=== PATIENT | male | born 1940 | race Hispanic/Latino ===

== ENCOUNTER 2018-02-18 09:55 | Inpatient (IN) | payer MEDICARE, OTHER ==
--- NOTE | 2018-02-18 10:15 | ED PDOC ---
Arrival/HPI - General Chief Complaint: Weakness/Neurological Deficit Time Seen by Provider: 02/18/18 09:56 Historian: Patient - History of Present Illness Narrative History of Present Illness (Text): 02/18/18 10:08 A 77 year old male, whose past medical history includes bipolar disorder ( reason patient is in longterm), diabetes type 2, [place], hypertension, and pacemaker, is accompanied by brother and , brought in by EMS for possible stroke. Per brother and , patient lives in a longterm in [place]. Brother went to longterm to diamond picker patient and bring him here to have breakfast with him and . At the time patient was in normal state of behavior and health, and ambulated without difficulty into the diner and was fine while inside. However, at approximately 09:30, as they were leaving the diner, patient was unable to ambulate and could not make any movements. Family called 911 immediately afterwards. Patient has no history of smoking/EtOH abuse. No PMD Time/Duration: Prior to Arrival (symptoms began at approximately 09:30) Associated Symptoms (Text): 02/18/18 11:47 Patient's brother went to [place] to pick the patient up at the longterm. Apparently the patient was fine and was able to ambulate with no difficulty. They went out for breakfast and the patient apparently was fine while at the diner. When he went to leave the patient had difficulty ambulating and was weak in both legs. No upper extremity weakness. No low back pain. He's never experienced this previously. When asked to lift his legs in a straight leg fashion the patient uses both of his hands and grasped behind his thighs to try to help him move his legs. Without his hands he is able to move his legs against gravity but they fall after 2 seconds bilaterally. discussed with the neurologist and he is not a TPA candidate. Past Medical History - Provider Review Nursing Documentation Reviewed: Yes - Cardiac Hx Cardiac Disorders: Yes Hx [place]: Yes Hx Hypertension: Yes Hx Pacemaker: Yes - Pulmonary Hx Respiratory Disorders: No - Neurological Hx Neurological Disorder: Yes Other/Comment: TREMORS - HEENT Hx HEENT Disorder: Yes Hx Sinusitis: Yes - Renal Hx Renal Disorder: No - Endocrine/Metabolic Hx Endocrine Disorders: Yes Hx Diabetes Mellitus Type 2: Yes - Hematological/Oncological Hx Blood Disorders: No - Integumentary Hx Dermatological Disorder: No - Psychiatric Hx Psychophysiologic Disorder: Yes Hx Substance Use: No Family/Social History - Physician Review Nursing Documentation Reviewed: Yes Family/Social History: No Known Family HX Smoking Status: Former Smoker Hx Alcohol Use: No Hx Substance Use: No Allergies/Home Meds Allergies/Adverse Reactions: Allergies Penicillins Allergy (Verified 02/18/18 09:57) SWELLING Home Medications: Home Meds Medication Instructions Recorded Confirmed Clonazepam [Klonopin] 0.5 mg PO DAILY 02/18/18 02/18/18 Review of Systems - Physician Review All systems were reviewed & negative as marked: Yes - Review of Systems Constitutional: absent: Fatigue, Fevers, Night Sweats Respiratory: absent: SOB, Cough Cardiovascular: absent: Chest Pain, Palpitations, Syncope Gastrointestinal: absent: Abdominal Pain, Vomiting Musculoskeletal: absent: Back Pain, Neck Pain Neurological: Gait Changes, Other (diffuclty ambulating and moving extremities) . absent: Headache, Dizziness, Focal Weakness, Seizure Physical Exam Vital Signs Reviewed: Yes Vital Signs Temp Pulse Resp BP Pulse Ox 02/18/18 13:07 98 F 85 19 111/53 L 98 02/18/18 11:03 98.3 F 02/18/18 10:04 98.1 F 78 18 107/58 L 95 Temperature: Afebrile Blood Pressure: Normal Pulse: Regular Respiratory Rate: Normal Appearance: Positive for: Well-Appearing, Non-Toxic, Comfortable Pain Distress: None Mental Status: No: Alert and Oriented X 3 (alert and oriented x 2) Finger Stick Blood Glucose: 138 - Systems Exam Head: Present: Atraumatic, Normocephalic Pupils: Present: PERRL Extroacular Muscles: Present: EOMI Conjunctiva: Present: Normal Ears: Present: NORMAL TM, Normal Canal. No: Erythema, TM Bulging Mouth: Present: Moist Mucous Membranes Pharnyx: No: ERYTHEMA, EXUDATE, TONSILS ENLARGED Respiratory/Chest: Present: Clear to Auscultation, Good Air Exchange. No: Respiratory Distress, Accessory Muscle Use, Wheezes, Decreased Breath Sounds Cardiovascular: Present: Regular Rate and Rhythm, Normal S1, S2. No: Murmurs Abdomen: No: Tenderness, Distention, Peritoneal Signs, Rebound, Guarding Upper Extremity: Present: Normal Inspection. No: Cyanosis, Edema Lower Extremity: Present: Other (bilateral weakness) Neurological: Present: GCS=15 (lower extremity weakness), CN II-XII Intact, Speech Normal, Normal Sensory Function. No: Motor Func Grossly Intact, Normal Cerebellar Funct, Gait Normal (Gait not examined) Skin: Present: Warm, Dry, Normal Color. No: Rashes Psychiatric: Present: Alert, Normal Insight, Normal Concentration Medical Decision Making ED Course and Treatment: 02/18/18 10:12 Impression: 77 year old male with possible stroke. Physical exam shows lower extremity bilateral weakness; patient is alert and oriented x 2. Plan: -- Head CT -- Labs -- Reassess and disposition Progress Notes: 02/18/2018 10:05 Code Stroke was called. 02/18/18 10:[address] Shook, who states patient is not a tPA candidate. 02/18/18 11:[address] Green, who requests patient to be admitted under telemetry, and have Dr. Young on consult. 02/18/18 11:52 EKG is paced rate approximately 90 - Lab Interpretations Lab Results: 02/18/18 10:00 02/18/18 10:00 Lab Results 02/18/18 12:08: Urine Opiates Screen Negative, Urine Methadone Screen Negative, Ur Barbiturates Screen Negative, Ur Phencyclidine Scrn Negative, Ur Amphetamines Screen Negative, U Benzodiazepines Scrn Negative, U Oth Cocaine Metabols Negative, U Cannabinoids Screen Negative 02/18/18 12:07: Ammonia 52 H 02/18/18 10:53: Urine Color Yellow, Urine Appearance Clear, Urine pH 7.0, Ur Specific [place] 1.010, Urine Protein Negative, Urine Glucose (UA) Negative, Urine Ketones Trace H, Urine Blood Negative, Urine Nitrate Negative, Urine Bilirubin Negative, Urine Urobilinogen 1.0 H, Ur Leukocyte Esterase Small H, Urine RBC Negative, Urine WBC 5 - 10, Ur Epithelial Cells 0 - 2, Urine Bacteria Small 02/18/18 10:10: Triglycerides 134, Cholesterol 181, LDL Cholesterol Direct 116, HDL Cholesterol 28 L 02/18/18 10:00: Alcohol, Quantitative < 10 02/18/18 10:00: PT 12.1, INR 1.05, APTT 29.4 02/18/18 10:00: Sodium 145, Potassium 3.9, Chloride 105, Carbon Dioxide 30, Anion Gap 13, BUN 32 H, Creatinine 1.3, Est GFR ( Amer) > 60, Est GFR ( Non-Af Amer) 53, Random Glucose 129 H, Calcium 9.1, Phosphorus 3.5, Magnesium 2.1, Total Bilirubin 0.7, AST 41, ALT 21, Alkaline Phosphatase 56, Lactate Dehydrogenase 561, Total Creatine Kinase 429 H, CK-MB (CK-2) 2.8, CK-MB (CK-2) % Cancelled, Troponin I < 0.01, Total Protein 6.6, Albumin 3.5, Globulin 3.1, Albumin/Globulin Ratio 1.1 02/18/18 10:00: WBC 4.7, RBC 4.55, Hgb 14.3, Hct 41.3 L, MCV 90.8, MCH 31.4, MCHC 34.6, RDW 12.8, Plt Count 96 L, MPV 10.9, Gran % 42.5 L, Lymph % (Auto) 38.7 H, Clinch % (Auto) 15.9 H, Eos % (Auto) 2.5, Baso % (Auto) 0.4, Gran # 2.01, Lymph # (Auto) 1.8, Clinch # (Auto) 0.8 H, Eos # (Auto) 0.1, Baso # (Auto) 0.02 - RAD Interpretation Radiology Orders: 02/18/18 10:12 HEAD W/O (CODE STROKE) [CT] Stat 02/18/18 10:13 HEAD W/O CONTRAST [CT] Stat 02/18/18 10:14 CHEST PORTABLE [RAD] Stat CT scan of the head as read by the radiologist shows no acute findings. X-ray chest one view shows a pacemaker with borderline cardiomegaly and no infiltrate or effusion. Traffic Agent: Radiologist - Medication Orders Current Medication Orders: Acetaminophen (Tylenol 325mg Tab) 650 mg PO Q6H PRN PRN Reason: Fever >100.4 F Acetaminophen (Tylenol 325mg Tab) 650 mg PO Q6H PRN PRN Reason: Pain, Mild (1-3) Sodium Chloride (Sodium Chloride 0.9%) 1,000 mls @ 100 mls/hr IV .Q10H SHERRY Last Admin: 02/18/18 14:45 Dose: 100 mls/hr eMAR Start Stop Document 02/18/18 14:45 RDS (Rec: 02/18/18 14:45 RDS [id number]) Intravenous Solution Start Date 02/18/18 Start Time 14:45 Lorazepam (Ativan) 0.5 mg PO Q6H PRN PRN Reason: Anxiety Ondansetron HCl (Zofran Inj) 4 mg IVP Q6H PRN PRN Reason: Nausea/Vomiting NIHSS Scale ([place]) Time Performed: 10:15 - How Severe is the Stoke Baseline Level of Consciousness: 0=Alert LOC to Questions: 0=Both comments correct LOC to commands: 0=Obeys both correctly Best Gaze: 0=Normal Visual: 0=No visual loss Facial: 0=Normal Motor Arm - Left: 0=No drift Motor Arm - Right: 0=No drift Motor Leg - Left: 2=Falls before 5 sec Motor Leg - Right: 2=Falls before 5 sec Limb Ataxia: 0=Absent Sensory: 0=Normal Best Language: 0=No aphasia Dysarthia: 0=Normal articulation Extinction & Inattention (Neglect): 0=Normal, no object Score: 4 Risk Level: Minor Stroke Risk - Scribe Statement The provider has reviewed the documentation as recorded by the Deidraibe Carson Egan Provider Scribe Attestation: All medical record entries made by the Scribe were at my direction and personally dictated by me. I have reviewed the chart and agree that the record accurately reflects my personal performance of the history, physical exam, medical decision making, and the department course for this patient. I have also personally directed, reviewed, and agree with the discharge instructions and disposition. Disposition/Present on Arrival - Present on Arrival Any Indicators Present on Arrival: No History of DVT/PE: No History of Uncontrolled Diabetes: No Urinary Catheter: No History of Decub. Ulcer: No History Surgical Site Infection Following: None - Disposition Have Diagnosis and Disposition been Completed?: Yes Diagnosis: Weakness Disposition: HOSPITALIZED Disposition Time: 11:53 Patient Plan: Observation, Telemetry Patient Problems: Current Active Problems Problem Status Onset Weakness Acute Condition: SERIOUS
[2018-02-18 10:29] LABS: BASO # 0.02 K/mm3 (0.0-2.0); BASO % 0.4 % (0.0-3.0); EOS # 0.1 (0.0-0.7); EOS % 2.5 % (1.5-5.0); GRAN # 2.01 (1.4-6.5); GRAN % 42.5 % (50.0-68.0); HEMOGLOBIN 14.3 g/dL (14.0-18.0); LYMPH # 1.8 (1.2-3.4); LYMPH % 38.7 % (22.0-35.0); MEAN CELL VOLUME 90.8 fl (80.0-105.0); MEAN CORPUSCULAR HEMOGLOBIN 31.4 pg (25.0-35.0); MEAN CORPUSCULAR HGB CONC 34.6 g/dl (31.0-37.0); MEAN PLATELET VOLUME 10.9 fl (7.0-11.0); MONO # 0.8 (0.1-0.6); MONO % 15.9 % (1.0-6.0); RBC 4.55 10^6/uL (3.5-6.1); RED CELL DISTRIBUTION WIDTH 12.8 % (11.5-14.5); WHITE BLOOD COUNT 4.7 10^3/ul (4.5-11.0)
[2018-02-18 10:31] LABS: INR 1.05; PROTHROMBIN TIME 12.1 SECONDS (9.4-12.5)
--- NOTE | 2018-02-18 10:31 | CT ---
Date of service: 02/18/2018 PROCEDURE: CT HEAD WITHOUT CONTRAST. HISTORY: code stroke COMPARISON: None available. TECHNIQUE: Axial computed tomography images were obtained through the head/brain without intravenous contrast. Radiation dose: Total exam DLP = 926 mGy-cm. This CT exam was performed using one or more of the following dose reduction techniques: Automated exposure control, adjustment of the mA and/or kV according to patient size, and/or use of iterative reconstruction technique. FINDINGS: HEMORRHAGE: No intracranial hemorrhage. BRAIN: No mass effect or edema. No atrophy or chronic microvascular ischemic changes. VENTRICLES: Unremarkable. No hydrocephalus. CALVARIUM: Unremarkable. PARANASAL SINUSES: Unremarkable as visualized. No significant inflammatory changes. MASTOID AIR CELLS: Unremarkable as visualized. No inflammatory changes. OTHER FINDINGS: None. IMPRESSION: No acute intracranial findings
[2018-02-18 10:34] LABS: PARTIAL THROMBOPLASTIN TIME 29.4 Seconds (25.1-36.5)
[2018-02-18 10:38] LABS: ALB/GLOB RATIO 1.1 (1.1-1.8); ALBUMIN 3.5 g/dL (3.0-4.8); ALT/SGPT 21 U/L (7-56); AST/SGOT 41 U/L (17-59); BLOOD UREA NITROGEN 32 mg/dL (7-21); CALCIUM 9.1 mg/dL (8.4-10.5); GFR AFRICAN-AMERICAN > 60; GFR NON-AFRICAN AMERICAN 53
[2018-02-18 10:51] LABS: TROPONIN I < 0.01 ng/mL
[2018-02-18 10:57] LABS: URINE APPEARANCE CLEAR (CLEAR); URINE BILIRUBIN NEGATIVE (NEGATIVE); URINE BLOOD NEGATIVE (NEGATIVE); URINE COLOR YELLOW (YELLOW); URINE GLUCOSE (UA) NEGATIVE (NEGATIVE); URINE LEUKOCYTE ESTERASE SMALL Leu/uL (NEGATIVE); URINE PROTEIN NEGATIVE mg/dL (<30 mg/dL)
[2018-02-18 10:58] LABS: CK-MB 2.8 ng/mL (0.0-3.6)
[2018-02-18 11:10] LABS: URINE BACTERIA SMALL (NEG); URINE EPITHELIAL CELLS 0 - 2 /hpf (0-5)
[2018-02-18 11:50] LABS: URINE RBC NEGATIVE /hpf (0-2)
--- NOTE | 2018-02-18 12:20 | RAD ---
Date of service: 02/18/2018 HISTORY: ams COMPARISON: No prior. FINDINGS: LUNGS: No active pulmonary disease. PLEURA: No significant pleural effusion identified, no pneumothorax apparent. CARDIOVASCULAR: Normal. OSSEOUS STRUCTURES: No significant abnormalities. VISUALIZED UPPER ABDOMEN: Normal. OTHER FINDINGS: Pacemaker IMPRESSION: No active disease.
[2018-02-18 12:40] LABS: BARBITURATES, UR NEGATIVE (NEGATIVE); BENZODIAZEPINES, UR NEGATIVE (NEGATIVE); OPIATES, UR NEGATIVE (NEGATIVE); PHENCYCLIDINE, UR NEGATIVE (NEGATIVE)
[2018-02-18 13:16] LABS: HDL CHOLESTEROL 28 mg/dL (29-60)
[2018-02-18 13:27] LABS: LDL CHOLESTEROL 116 mg/dL (0-129)
[2018-02-18] MEDS ORDERED: Sodium Chloride 0.9% 1,000 ML IV SCH (14:30)
--- NOTE | 2018-02-18 15:02 | CP.PCM.CON ---
History of Present Illness - History of Present Illness History of Present Illness: Neurology Consultation Note: Mr. Frazier is a 77-year-old man who is a [facility] resident, with a past medical history of bipolar disorder, diabetes type 2, [place], hypertension, and pacemaker, is accompanied by brother and , brought in by EMS due to bilateral lower extremity weakness and difficulty with ambulation. He complained of chronic back pain. Past Patient History - Past Social History Smoking Status: Former Smoker - CARDIAC Hx Cardiac Disorders: Yes Hx Heart Attack: Yes Hx Hypertension: Yes Hx Pacemaker: Yes - PULMONARY Hx Respiratory Disorders: No - NEUROLOGICAL Hx Neurological Disorder: Yes Other/Comment: TREMORS - HEENT Hx HEENT Problems: Yes Hx Sinusitis: Yes - RENAL Hx Chronic Kidney Disease: No - ENDOCRINE/METABOLIC Hx Endocrine Disorders: Yes Hx Diabetes Mellitus Type 2: Yes - HEMATOLOGICAL/ONCOLOGICAL Hx Blood Disorders: No - INTEGUMENTARY Hx Dermatological Problems: No - MUSCULOSKELETAL/RHEUMATOLOGICAL Hx Musculoskeletal Disorders: No - GASTROINTESTINAL Hx Gastrointestinal Disorders: No - GENITOURINARY/GYNECOLOGICAL Hx Genitourinary Disorders: No - PSYCHIATRIC Hx Psychophysiologic Disorder: Yes Hx Substance Use: No - SURGICAL HISTORY Hx Surgeries: Yes Other/Comment: PACEMAKER Meds Allergies/Adverse Reactions: Allergies Allergy/AdvReac Type Severity Reaction Status Date / Time Penicillins Allergy SWELLING Verified 02/18/18 09:57 - Medications Medications: Current Medications Acetaminophen (Tylenol 325mg Tab) 650 mg PO Q6H PRN PRN Reason: Fever >100.4 F Acetaminophen (Tylenol 325mg Tab) 650 mg PO Q6H PRN PRN Reason: Pain, Mild (1-3) Sodium Chloride (Sodium Chloride 0.9%) 1,000 mls @ 100 mls/hr IV .Q10H SHERRY Last Admin: 02/18/18 14:45 Dose: 100 mls/hr Lorazepam (Ativan) 0.5 mg PO Q6H PRN PRN Reason: Anxiety Ondansetron HCl (Zofran Inj) 4 mg IVP Q6H PRN PRN Reason: Nausea/Vomiting Physical Exam - Neurological Exam Neurological exam: Abnormal Gait, Alert, CN II-XII Intact, Motor Sensory Deficit , Oriented x3 Additional comments: Reflexes were slightly brisk bilaterally in the lower extremities. Results - Vital Signs Recent Vital Signs: Last Vital Signs Temp 98 F 02/18/18 14:37 Pulse 85 08/05/18 14:37 Resp 19 02/18/18 14:37 BP 112/52 L 02/18/18 14:37 Pulse Ox 98 02/18/18 14:37 - Labs Result Diagrams: 02/18/18 10:00 02/18/18 10:00 Assessment & Plan (1) Weakness Assessment and Plan: The weakness is most notable in the lower extremities and may be due to spine disease. I recommend obtaining an MRI of the lumbar and thoracic spine for further evaluation. Continue conservative management. Thank you. Status: Acute
--- NOTE | 2018-02-18 15:36 | CON ---
Copied To: Javier Young MD Attending MD: Javier Young MD DATE: 02/18/2018 NEUROLOGY CONSULTATION CHIEF COMPLAINT: Generalized lower extremity weakness. HISTORY OF PRESENT ILLNESS: This is a 77-year-old man with past medical history of bipolar disorder, who is residing at a senior living by [facility], type 2 diabetes mellitus, [place], hypertension, pacemaker, who is accompanied by his brother and to the ER for generalized weakness especially to the lower extremities. Apparently, the patient's brother went to [place] to nut picker the patient at the senior living and apparently, the patient was fine and was able to ambulate with no difficulty and when then went out for breakfast, the patient apparently had difficulty in ambulating and had weakness of both legs. No upper extremity weakness, no low back pain. He has never experienced this previously. When asked to lift his legs in a straight leg cushion, he is able to do so. CAT scan of the head showed no acute intracranial abnormality. He has occasional paresthesias underlying diabetic neuropathy. MEDICATIONS: Reviewed by nurse per reconciliation sheet. ALLERGIES: ALLERGIC TO PENICILLIN. REVIEW OF SYSTEMS: Fourteen-point review of systems is negative except as per the HPI. FAMILY HISTORY: Noncontributory. LABORATORY DATA: Sodium is 145, potassium 3.9, chloride 105, carbon dioxide 30. BUN of 32, creatinine 1.3. Random glucose of 129. Ammonia level is 52 which is elevated. PHYSICAL EXAMINATION: VITAL SIGNS: Temperature 98, pulse rate of 85, blood pressure 111/53, respiratory rate of 19, oxygen saturation 98% by room air. GENERAL: The patient is sitting up in bed, in no acute distress. HEENT: Head is atraumatic, normocephalic. PERRLA. Extraocular muscles intact. NECK: Supple. No JVD. No adenopathy noted. LUNGS: Clear to auscultation. No adventitious sounds. HEART: S1, S2. Normal rate and rhythm. No murmurs, rubs, or gallops. ABDOMEN: Soft, nontender, and nondistended. Bowel sounds are present. EXTREMITIES: No clubbing. No cyanosis. Peripheral pulses 2+ felt bilaterally. NEUROLOGIC: The patient is alert and oriented to person, place, month, and year. Speech is fluent without any errors. Recall after 5 minutes is 0/3. Poor attention span and slow thought process. Cranial nerves II through XII intact. No aphasia noted. Motor exam: Mildly deconditioned. Moves all extremities equally. No pronator drifts seen. He is able to lift his legs without any difficulty one by one. No drift seen. Sensory exam: Decreased light touch and pinprick up to the calves bilaterally. Decreased vibration of the toes. DTRs are 2+ throughout both and one at knees and absent at the ankles. Coordination: [id number] intact. No dysmetria noted. 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 ASSESSMENT AND PLAN: This is a 77-year-old man with history of bipolar disorder, history of type 2 diabetes mellitus, history of pacemaker, who presented with bilateral lower extremity weakness and difficulty getting out of the chair while at lunch. Therefore, he came in to the hospital for further evaluation. He is very deconditioned, denies any low back pain. Had low systolic blood pressures in addition to elevated ammonia level of 50. At this time, we will recommend: 1. Repeat CAT scan of the head tomorrow to see if any infarct. 2. CAT scan of the thoracic and lumbosacral spine since he has a pacemaker and orders given to the nurse to assess for any reason for his lower extremity weakness. Overall, he is very deconditioned and will require physical and occupational therapy and likely subacute rehab. 3. We will recommend the GI consult for elevated ammonia level of 52 and recommend aspirin 81 p.o. daily for stroke prevention. Continue current present medical management. Thank you for the consultation. Javier Young MD
[2018-02-18] MEDS ORDERED: Sodium Chloride 0.9% 100 ML IV SCH (15:45)
[2018-02-18] MEDS: Sodium Chloride 0.9% 1,000 ML IV SCH (16:00)
--- NOTE | 2018-02-18 17:11 | CT ---
Date of service: 02/18/2018 PROCEDURE: CT Thoracic Spine without contrast HISTORY: BLE weakness/code stroke COMPARISON: None available. TECHNIQUE: Axial computed tomography images were obtained of the thoracic spine without intravenous contrast. Coronal and sagittal reformatted images were created and reviewed. Radiation dose: Total exam DLP = 757 mGy-cm. This CT exam was performed using one or more of the following dose reduction techniques: Automated exposure control, adjustment of the mA and/or kV according to patient size, and/or use of iterative reconstruction technique. FINDINGS: VERTEBRAE: Unremarkable. No fracture. Normal alignment. DISCS/SPINAL CANAL/NEURAL FORAMINA: Within the limits of the CT technique, no disc herniation seen. No central canal or neural foraminal stenosis.. PARASPINAL SOFT TISSUES: Unremarkable. OTHER FINDINGS: Linear scarring is seen in both lungs posteriorly. IMPRESSION: No acute findings. No evidence of vertebral compression fracture
--- NOTE | 2018-02-18 17:15 | CT ---
Date of service: 02/18/2018 PROCEDURE: CT Lumbar Spine without contrast HISTORY: BLE weakness/code stroke COMPARISON: None available. TECHNIQUE: Axial computed tomography images were obtained of the lumbar spine without the use of intravenous contrast. Coronal and sagittal reformatted images were created and reviewed. Radiation dose: Total exam DLP = 588 mGy-cm. This CT exam was performed using one or more of the following dose reduction techniques: Automated exposure control, adjustment of the mA and/or kV according to patient size, and/or use of iterative reconstruction technique. FINDINGS: VERTEBRAE: Unremarkable. No fracture. Normal alignment. DISCS/SPINAL CANAL/NEURAL FORAMINA: L1-2: Unremarkable. L2-3: Unremarkable. L3-4: Unremarkable. L4-5: There is severe facet arthropathy. Mild disc bulging. Severe stenosis L5-S1: Disc degeneration without stenosis PARASPINAL SOFT TISSUES: Unremarkable. OTHER FINDINGS: None. IMPRESSION: No acute compression fractures. Facet arthropathy and disc bulging with severe stenosis at L4-5
--- NOTE | 2018-02-19 06:48 | CARD ---
APPROVED REPORT Date of service: 02/18/2018 EKG Measurement Heart [id number] <Conclusion> Sinus rhythm with sinus arrhythmia with 1st degree AV block Nonspecific intraventricular block Lateral infarct, age undetermined Inferior infarct, age undetermined Abnormal ECG
--- NOTE | 2018-02-19 09:39 | CT ---
Date of service: 02/19/2018 PROCEDURE: CT HEAD WITHOUT CONTRAST. HISTORY: repeat Head CT/code stroke called 02/18/18 COMPARISON: None available. TECHNIQUE: Axial computed tomography images were obtained through the head/brain without intravenous contrast. Radiation dose: Total exam DLP = 997 mGy-cm. This CT exam was performed using one or more of the following dose reduction techniques: Automated exposure control, adjustment of the mA and/or kV according to patient size, and/or use of iterative reconstruction technique. FINDINGS: HEMORRHAGE: No intracranial hemorrhage. BRAIN: No mass effect or edema. No atrophy or chronic microvascular ischemic changes. VENTRICLES: Unremarkable. No hydrocephalus. CALVARIUM: Unremarkable. PARANASAL SINUSES: Unremarkable as visualized. No significant inflammatory changes. MASTOID AIR CELLS: Unremarkable as visualized. No inflammatory changes. OTHER FINDINGS: The report concurs with the preliminary [facility] report IMPRESSION: No acute findings
[2018-02-19] MEDS: Divalproex 250 mg DR (BID formulation) PO SCH ×2 (11:12→18:00)
--- NOTE | 2018-02-19 12:53 | CP.PCM.PN ---
Subjective - Date & Time of Evaluation Date of Evaluation: 02/19/18 Time of Evaluation: 12:50 - Subjective Subjective: Mr. Frazier was seen and examined at the bedside. He is alert oriented x 1 ( place), but confused to time( 1936) and person (Rosalino). He is agitated and restless claiming of going to a psych unit. Ativan was given. He is able to move all his extremities but the lower is more weaker than the upper. Objective - Vital Signs/Intake and Output Vital Signs (last 24 hours): Temp Pulse Resp BP Pulse Ox 97.2 F L 59 L 20 119/80 96 02/19/18 12:00 02/19/18 12:00 02/19/18 12:00 02/19/18 12:00 02/19/18 06:00 - Medications Medications: Current Medications Acetaminophen (Tylenol 325mg Tab) 650 mg PO Q6H PRN PRN Reason: Fever >100.4 F Acetaminophen (Tylenol 325mg Tab) 650 mg PO Q6H PRN PRN Reason: Pain, Mild (1-3) Aripiprazole (Abilify) 30 mg PO HS [facility] Aspirin (Ecotrin) 81 mg PO DAILY [facility] Last Admin: 02/19/18 11:12 Dose: 81 mg Clonazepam (Klonopin) 1 mg PO DAILY [facility] PRN Reason: Protocol Last Admin: 02/19/18 11:12 Dose: 1 mg Divalproex Sodium (Depakote Dr (*Bid*)) 750 mg PO BID [facility] Last Admin: 02/19/18 11:12 Dose: 750 mg Docusate Sodium (Colace) 100 mg PO TID [facility] Last Admin: 02/19/18 11:11 Dose: 100 mg Sodium Chloride (Sodium Chloride 0.9%) 1,000 mls @ 60 mls/hr IV .[id number] [facility] Last Admin: 02/18/18 16:00 Dose: 60 mls/hr Levothyroxine Sodium (Synthroid) 75 mcg PO ACB [facility] Lisinopril (Zestril) 5 mg PO DAILY [facility] Lorazepam (Ativan) 0.5 mg PO Q6H PRN PRN Reason: Anxiety Last Admin: 02/18/18 23:32 Dose: 0.5 mg Ondansetron HCl (Zofran Inj) 4 mg IVP Q6H PRN PRN Reason: Nausea/Vomiting Pantoprazole Sodium (Protonix Ec Tab) 40 mg PO ACB [facility] Risperidone (Risperdal Tab) 2 mg PO BID [facility] PRN Reason: Protocol Last Admin: 02/19/18 11:12 Dose: 2 mg Sitagliptin Phosphate (Januvia) 50 mg PO DAILY [facility] Last Admin: 02/19/18 11:11 Dose: 50 mg - Labs Labs: PT 12.1 SECONDS (9.4-12.5) 02/18/18 10:00 INR 1.05 02/18/18 10:00 APTT 29.4 Seconds (25.1-36.5) 02/18/18 10:00 - Constitutional Appears: No Acute Distress - Head Exam Head Exam: NORMAL INSPECTION - Neurological Exam Neurological Exam: Awake Neuro motor strength exam: Left Upper Extremity: 4, Right Upper Extremity: 4, Left Lower Extremity: 2/1, Right Lower Extremity: 2/1 Additional comments: restless, agitated, moves his extremities. Assessment and Plan (1) Weakness Assessment & Plan: Case discussed with Dr. Shook, continue all current medical regimen. Recommend MRI of the lumbar and thoracic spine, however, the patient has a pacemaker. Unable to verify if the pacemaker is MRI compatible. Status: Acute
--- NOTE | 2018-02-19 13:02 | CP.PCM.PN ---
Subjective - Date & Time of Evaluation Date of Evaluation: 02/19/18 Time of Evaluation: 11:30 - Subjective Subjective: DATE: 02/19/2018 Neurology Follow up: CHIEF COMPLAINT: Generalized lower extremity weakness. SUBJECTIVE: Repeat CAT scan of the head showed no acute intracranial abnormality. CT Lumbar spine shows Severe facet arthropahy and stenosis at L4-L5. He was agiated this am. Psych is currently evaluating his psych meds. MEDICATIONS: Reviewed by nurse per reconciliation sheet. ALLERGIES: ALLERGIC TO PENICILLIN. REVIEW OF SYSTEMS: Fourteen-point review of systems is negative except as per the HPI. FAMILY HISTORY: Noncontributory. LABORATORY DATA: Reviewed. PHYSICAL EXAMINATION: VITAL SIGNS: Reviewed. GENERAL: The patient is sitting up in bed, in no acute distress. HEENT: Head is atraumatic, normocephalic. PERRLA. Extraocular muscles intact. NECK: Supple. No JVD. No adenopathy noted. LUNGS: Clear to auscultation. No adventitious sounds. HEART: S1, S2. Normal rate and rhythm. No murmurs, rubs, or gallops. ABDOMEN: Soft, nontender, and nondistended. Bowel sounds are present. EXTREMITIES: No clubbing. No cyanosis. Peripheral pulses 2+ felt bilaterally. NEUROLOGIC: The patient is alert and oriented to person, place, month, and year. Speech is fluent without any errors. Recall after 5 minutes is 0/3. Poor attention span and slow thought process. Cranial nerves II through XII intact. No aphasia noted. Motor exam: Mildly deconditioned. Moves all extremities equally. No pronator drifts seen. He is able to lift his legs without any difficulty one by one. No drift seen. Sensory exam: Decreased light touch and pinprick up to the calves bilaterally. Decreased vibration of the toes. DTRs are 2+ throughout both and one at knees and absent at the ankles. Coordination: [id number] intact. No dysmetria noted. 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 ASSESSMENT AND PLAN: This is a 77-year-old man with history of bipolar disorder, history of type 2 diabetes mellitus, history of pacemaker, who presented with bilateral lower extremity weakness and difficulty getting out of the chair while at lunch. Therefore, he came in to the hospital for further evaluation. He is very deconditioned, denies any low back pain. CT Lumbar spine shows Severe facet arthropahy and stenosis at L4-L5. At this time, we will recommend: 1. Overall, he is very deconditioned and will require physical and occupational therapy and likely subacute rehab. aspirin 81 p.o. daily for stroke prevention. Continue current present medical management. Javier Young MD Objective - Vital Signs/Intake and Output Vital Signs (last 24 hours): Temp Pulse Resp BP Pulse Ox 97.2 F L 59 L 20 119/80 96 02/19/18 12:00 02/19/18 12:00 02/19/18 12:00 02/19/18 12:00 02/19/18 06:00 - Medications Medications: Current Medications Acetaminophen (Tylenol 325mg Tab) 650 mg PO Q6H PRN PRN Reason: Fever >100.4 F Acetaminophen (Tylenol 325mg Tab) 650 mg PO Q6H PRN PRN Reason: Pain, Mild (1-3) Aripiprazole (Abilify) 30 mg PO HS [facility] Aspirin (Ecotrin) 81 mg PO DAILY [facility] Last Admin: 02/19/18 11:12 Dose: 81 mg Clonazepam (Klonopin) 1 mg PO DAILY [facility] PRN Reason: Protocol Last Admin: 02/19/18 11:12 Dose: 1 mg Divalproex Sodium (Depakote Dr (*Bid*)) 750 mg PO BID [facility] Last Admin: 02/19/18 11:12 Dose: 750 mg Docusate Sodium (Colace) 100 mg PO TID [facility] Last Admin: 02/19/18 11:11 Dose: 100 mg Sodium Chloride (Sodium Chloride 0.9%) 1,000 mls @ 60 mls/hr IV .[id number] [facility] Last Admin: 02/18/18 16:00 Dose: 60 mls/hr Levothyroxine Sodium (Synthroid) 75 mcg PO ACB [facility] Lisinopril (Zestril) 5 mg PO DAILY [facility] Lorazepam (Ativan) 0.5 mg PO Q6H PRN PRN Reason: Anxiety Last Admin: 02/18/18 23:32 Dose: 0.5 mg Ondansetron HCl (Zofran Inj) 4 mg IVP Q6H PRN PRN Reason: Nausea/Vomiting Pantoprazole Sodium (Protonix Ec Tab) 40 mg PO ACB [facility] Risperidone (Risperdal Tab) 2 mg PO BID [facility] PRN Reason: Protocol Last Admin: 02/19/18 11:12 Dose: 2 mg Sitagliptin Phosphate (Januvia) 50 mg PO DAILY [facility] Last Admin: 02/19/18 11:11 Dose: 50 mg - Labs Labs: PT 12.1 SECONDS (9.4-12.5) 02/18/18 10:00 INR 1.05 02/18/18 10:00 APTT 29.4 Seconds (25.1-36.5) 02/18/18 10:00
--- NOTE | 2018-02-19 14:08 | PN ---
Copied To: Karlie Green MD Attending MD: Karlie Green MD DATE: 02/19/2018 SUBJECTIVE: This 77-year-old male was examined at bedside on the cardiac hinkle and case was reviewed in detail with nursing. The patient remains chronically, but pleasantly confused and was evaluated by Dr. Javier Young from Neurology, who did recommend CT of thoracic and lumbar spine. I did review these reports. He was noted to have degenerative arthritic changes of his spine. There was no evidence of vertebral compression fracture and on lumbar spine CT, a facet arthropathy and disk bulging with severe stenosis was seen at level L4-L5. A repeat head CT was reviewed and shows no evidence of infarct or hemorrhage. At present, the patient is having his psychotropic medications adjusted and he is awaiting consultation by Dr. Jeffrey from Psychiatry. PHYSICAL EXAMINATION: GENERAL: He remains in a normal sinus rhythm on monitoring and evaluation advisor. VITAL SIGNS: His temperature is 97.5, respirations 19, pulse 60 and blood pressure 107/73 with a pulse ox of 96% on room air. HEENT: Head normocephalic, atraumatic. Eyes: No icterus. Ears: Clear. Throat: Noninjected. NECK: Supple. HEART: Regular S1, S2. No pathological rubs, murmurs or gallops. LUNGS: Clear. ABDOMEN: Soft. EXTREMITIES: No edema. SKIN: Without rash. NEUROLOGICAL: Unchanged. Bilateral lower extremity weakness, but he is able to move both legs. Sensory exam is consistent with neuropathy. VASCULAR: Legs warm to touch. PSYCHOLOGICAL: Alert, but confused. NEURO: Deconditioned. SKIN: Without ulcers. LABORATORY DATA: White count 4700, hemoglobin 14.3, hematocrit 41.3, platelets 96,000. Ammonia level was 52. Repeat ammonia level pending. Hemoglobin A1c 5.6, triglycerides 134. Cholesterol 181, HDL 28, LDL 116, random blood sugar 128. IMPRESSION: A 77-year-old male with bilateral lower extremity weakness, evidence of spinal arthritis on spinal CTs and comorbidities of bipolar psychosis, stable atherosclerotic heart disease, chronic hypertension, pacemaker placement, type 2 diabetes mellitus, peptic ulcer disease with gastroesophageal reflux disease, chronic hypothyroidism, degenerative arthritis and abnormal EKG suggestive of old myocardial infarctions. PLAN: As discussed with the patient and nursing will be to await psychiatric evaluation by Dr. Jeffrey from Psychiatry. The patient is ordered to have physical therapy for reconditioning and gait training. He will continue on Abilify 30 mg p.o. at bedtime, Ativan 0.5 mg p.o. every 6 hours p.r.n. anxiety, Colace 100 mg p.o. t.i.d., Ecotrin 81 mg p.o. daily, Januvia 50 mg p.o. daily, Klonopin 1 mg p.o. daily, Protonix 40 mg p.o. daily, Risperdal 2 mg p.o. b.i.d., 0.9 saline at 60 mL/hour, Synthroid 75 mcg p.o. daily, Zestril 5 mg p.o. daily and divalproex sodium 750 mg p.o. every 12. I have ordered a repeat ammonia level. The patient does have normal liver function testings. If the ammonia level remains elevated, a GI consultation will be obtained. I have ordered a 2D echocardiogram to further assess his ejection fraction and evaluate wall motion and valvular heart status and based on results of thyroid profile, blood and urine cultures and workup as outlined, additional diagnostic testing will be entertained. Greater than 35 minutes was spent in the care and management, review of labs, orders, x-rays and discussion of this patient with nursing and case management. All questions were answered. Karlie Green MD MTDReyes
--- NOTE | 2018-02-19 16:35 | HP ---
DATE OF EXAM: 02/18/2018 Copied To: Karlie Green MD Attending MD: Karlie Green MD HISTORY OF PRESENT ILLNESS: This 77-year-old male was examined in the emergency room. His was present at his bedside. He is being admitted for bilateral lower extremity weakness and is a chronic resident of the [facility] in [place], [place]. The patient was being taken to breakfast by his and brother and upon exiting his restaurant yesterday the morning of admission, was unable to ambulate because of bilateral lower extremity weakness. The patient's brother brought him to the local [facility] Emergency Room where he was noted to be markedly deconditioned with bilateral lower extremity weakness. An emergency head CT was reviewed that shows no evidence of hemorrhage or infarct and the patient is being admitted to be evaluated by Neurology. The patient has a chronic allergy to penicillin. He is a longstanding type 2 diabetic, status post myocardial infarction, has chronic hypertension and a permanent pacemaker. The patient also has a history of bipolar psychosis. OUTPATIENT MEDICATIONS: Included Januvia 50 mg p.o. daily, Synthroid 75 mcg p.o. daily, Lasix 40 mg p.o. daily, Ecotrin 81 mg p.o. daily, Protonix 40 mg p.o. daily, multivitamin 1 tablet daily, Zestril 5 mg p.o. daily, Colace 100 mg p.o. t.i.d., divalproex sodium 750 mg p.o. every 12, Risperdal 2 mg p.o. b.i.d., Abilify 30 mg p.o. at bedtime and Klonopin 1 mg p.o. daily. REVIEW OF SYSTEMS: Constitutional review: There were no fever or chills. Head review: No reports of headaches or seizure. Eye review: No change in visual acuity. Ear review: No hearing loss. Throat review: No swallowing difficulty. Neck review: No stiffness. Cardiac review: He is status post myocardial infarction. Has a permanent pacemaker and has chronic hypertension. Pulmonary: No cough. No hemoptysis. GI: Has chronic peptic ulcer disease with GERD. : No dysuria. Skin: No rash. Vascular: No claudication. Psychological: Has poor memory recall and also has history of chronic bipolar psychosis. Neurological: No knowledge of stroke. Endocrinological: No knowledge of hyperlipidemia, but chronic hypothyroidism. SOCIAL HISTORY: The patient is a nondrinker, nonsmoker, non IV drug misuser. He is a detention resident. PHYSICAL EXAMINATION: VITAL SIGNS: His physical exam in the emergency room showed a temperature of 98, respirations 19, pulse 85, blood pressure 111/53 and pulse ox 98% on room air. HEENT: Head: Normocephalic, atraumatic. Eyes: No icterus. Ears: Clear. Throat: Noninjected. NECK: Supple. HEART: Regular S1, S2. No pathological rubs, murmurs or gallops. LUNGS: Clear. ABDOMEN: Soft. EXTREMITIES: No edema. SKIN: Without rash. NEUROLOGICAL: Bilateral lower extremity weakness, also signs of sensory neuropathy in both legs. VASCULAR: Legs warm to touch. PSYCHOLOGICAL: Alert, but confused. SKIN: No ulcers. LABORATORY DATA: Sodium 145, K 3.9, chloride 105, bicarb 30, BUN 32, creatinine 1.3, random blood sugar 129, hemoglobin A1c 5.6, calcium 9.1, phosphorous 3.5, magnesium 2.1, bilirubin 0.7, AST 41, ALT 21, alk phos 56, LDH 561. Troponin less than 0.01. Cholesterol 181, triglycerides 134, LDL 116, HDL 28. White count 4700, hemoglobin 14.3, hematocrit 41.3, platelets 96,000. PT/INR 1.05, PTT 29.4. Urinalysis showed small bacteria. Toxicology was negative for opioids, barbiturates or cocaine. Alcohol level was less than 10. Head CT was reviewed. It showed no evidence of intracranial hemorrhage or infarct. EKG was reviewed. It showed normal sinus rhythm with first-degree AV block and an inferior and lateral wall infarct, age undetermined. Chest x-ray was reviewed. It showed no active pulmonary disease, no pleural effusions, no infiltrates, no evidence of congestive heart failure. IMPRESSION: A 77-year-old male, detention resident with multiple comorbidities including old myocardial infarction, chronic hypertension, hypothyroidism, type 2 diabetes mellitus, bipolar psychosis, hyperlipidemia, degenerative arthritis, now admitted with bilateral lower extremity weakness, chronic pacemaker in place with marked deconditioning and inability to ambulate safely. PLAN: The plan will be to admit this patient to the Cardiac Unit. His outpatient medications will be continued. He will be consulted to be seen by Neurology, Dr. Javier Young and the patient will need a followup head CT in the morning to determine if there is any evidence of acute infarct. Most likely, the patient will require thoracic and lumbar spine CTs given pacemaker status to further assess the reason for bilateral lower extremity weakness. It is my suspicion that the patient has marked deconditioning on the basis of his multiple medical comorbidities and will require outpatient physical therapy once he returns to his detention detention environment. Greater than 75 minutes was spent in the care and management, ordering and reviewing of x-rays, labs and discussion of this patient with him and his at the bedside as well as with Dr. Giuliano Jacobsen, emergency room physician. All questions were answered. Orders were entered. Karlie Green MD BALA
--- NOTE | 2018-02-19 21:17 | CARD ---
APPROVED REPORT Date of service: 02/19/2018 EXAM: Two-dimensional and M-mode echocardiogram with Doppler and color Doppler. INDICATION Abnormal EKG/Arrhythmia 2D DIMENSIONS IVSd1.6 (0.7-1.1cm)LVDd3.4 (3.9-5.9cm) PWd1.4 (0.7-1.1cm)LVDs2.4 (2.5-4.0cm) FS (%) 31.7 %LVEF (%)60.9 (>50%) M-Mode DIMENSIONS Aortic Root2.80 (2.2-3.7cm)Aortic Cusp Exc.1.90 (1.5-2.0cm) Aortic Valve AoV Peak [id number]/Mario Peak GR.4mmHg Mitral Valve E/A ratio0.0 TDI E/Lateral E'0.0E/Medial E'0.0 Tricuspid Valve TR Peak [id number] [id number] Peak Gr.15mmHg [id number] LEFT VENTRICLE The left ventricle is normal size. There is moderate to severe concentric left ventricular hypertrophy. The left ventricular function is normal. The left ventricular ejection fraction is within the normal range. Apical motion consistent with pacemaker activation. Transmitral Doppler flow pattern is abnormal. RIGHT VENTRICLE The right ventricle is normal size. There is normal right ventricular wall thickness. The right ventricular systolic function is normal. ATRIA The left atrium size is normal. The right atrium size is normal. AORTIC VALVE The aortic valve is mildly thickened. No aortic regurgitation is present. There is no aortic valvular stenosis. MITRAL VALVE The mitral valve is moderately thickened. There is no mitral valve regurgitation noted. There is no mitral valve stenosis. TRICUSPID VALVE The tricuspid valve is normal in structure. There is trace tricuspid regurgitation. GREAT VESSELS The aortic root is normal in size. PERICARDIAL EFFUSION There is a trace loculated anterior pericardial effusion. <Conclusion> The left ventricle is normal size. There is moderate to severe concentric left ventricular hypertrophy. The left ventricular function is normal. The left ventricular ejection fraction is within the normal range. Apical motion consistent with pacemaker activation.
[2018-02-19] MEDS: Sodium Chloride 0.9% 1,000 ML IV SCH (23:20)
--- NOTE | 2018-02-19 23:38 | CON ---
Copied To: Atul Jeffrey MD/ PhD Attending MD: Atul Jeffrey MD/ PhD DATE: 02/19/2018 IDENTIFYING INFORMATION: The patient is a 77-year-old male who presented to the emergency room, being admitted for reported bilateral lower extremity weakness. HISTORY OF PRESENT ILLNESS: The patient who is a resident of the [facility] in [place] had been taken to breakfast by his and brother. Upon exiting the restaurant on the morning of his admission he was suddenly unable to ambulate because of lower extremity weakness. He had been brought to our emergency room where he was noted to be markedly deconditioned with bilateral lower extremity weakness. A CT scan of his head showed no evidence of hemorrhage or infarct. The patient has a long-term history of diabetes mellitus type 2, status post myocardial infarction, chronic hypertension and a permanent pacemaker. He reportedly also has a history of bipolar psychosis. A review of my records indicated that I had previously seen this patient in 2003 and given a diagnosis of bipolar disorder - mixed - severe. I am presently trying to trace his actual chart. The patient is maintained psychotropically on Risperdal 2 mg b.i.d., Abilify 30 mg at bedtime and Klonopin 1 mg daily. Medically he is being maintained on Januvia, Synthroid, Lasix, Ecotrin, Zestril, Colace. He is also on Depakote. A CBC and differential shows elevated lymphocyte percent of 38.7 and monocyte percent 35.9. A toxicology screen was negative. Urinalysis showed trace ketones, 1+0 urine and urobilinogen and a small amount of leukocyte esterase. A biochemical profile today was unremarkable. He was seen by Neurology earlier today (Dr. Young) and was noted to have generalized lower extremity weakness. He was continued to have significant deconditioning and require physical and occupational therapy and likely subacute rehab. Upon my assessment of from the patient appeared to be quite disorganized, lacking in focus, somewhat bizarre in affect, he was muttering something about having been hospitalized at the [facility] in the past (if so this as a psychiatric hospital which treats severely psychiatrically appeared individuals). He kept yelling expletives about the type of care he got over there. He seems to be aware that I was a psychiatrist and was called by his doctor, but he could not identify who that might be. He appeared to be disoriented to time and place. The social work notes that his had been interviewed and indicated he had a history of schizophrenia and bipolar disorder (which probably implies a schizoaffective disorder). His did state that he had a behavioral problem with inappropriate gestures and yelling and cursing lately. Notes also indicated he had just been changed to Klonopin on 02/17. The patient will need continued monitoring here in the hospital. For now we will maintain on present psychotropic medication (which includes 2 major tranquilizers), psychotic medications (at sizable doses - Risperdal 2 mg b.i.d. and Abilify 30 mg at bedtime). A valproic acid level is pending. I will be on a vacation till 03/05. We will ask Hospital psychiatrist for coverage. We will try to discuss with you later today or tomorrow prior to my departure. Thank you as always for this consultation. My diagnostic impression is that the patient appears to have a schizoaffective disorder of longstanding duration. Atul Jeffrey MD/ PhD
[2018-02-20] MEDS: Sodium Chloride 0.9% 1,000 ML IV SCH (03:22)
[2018-02-20] MEDS: Levothyroxine 75 MCG TAB PO SCH (07:50)
[2018-02-20] MEDS: Pantoprazole 40 mg EC Tab PO SCH (07:50)
[2018-02-20 07:56] LABS: FREE T4 0.98 ng/dL (0.78-2.19)
[2018-02-20] MEDS: Divalproex 250 mg DR (BID formulation) PO SCH ×2 (09:53→17:39)
--- NOTE | 2018-02-20 16:06 | PN ---
Copied To: Karlie Green MD Attending MD: Karlie Green MD DATE: 02/20/2018 SUBJECTIVE: This 77-year-old male remains hospitalized on the cardiac hinkle. This case was reviewed in detail with nurse, Nimco Morris. The patient had a stormy day yesterday with exacerbation of acute psychosis and was evaluated by Dr. Jeffrey from Psychiatry, who states that the patient has a schizoaffective disorder of a longstanding duration now with acute exacerbation and will need continued monitoring in the hospital while maintaining the patient on two major tranquilizers including Abilify and Risperdal while continuing valproic acid and Ativan p.r.n. anxiety. The patient did have a severe manic episode yesterday where he was screaming, acutely psychotic, and using expletives. Of note, his blood level of Depakote was therapeutic at 61. The patient was administered parenteral Ativan and is being monitored on the cardiac hinkle at present. The patient was admitted with bilateral lower extremity weakness. Head CT x2 was unremarkable, but spinal CT of lumbar spine does reveal significant L4-L5 spinal stenosis. At present, the patient denies any fever, chills, chest pain, or shortness of breath and is in a normal sinus rhythm on manager cardiac cath. PHYSICAL EXAMINATION: VITAL SIGNS: Temperature is 98.4, respirations 18, pulse 58, blood pressure 134/94 with pulse ox of 96% on room air. HEENT: Head: Normocephalic, atraumatic. Eyes: No icterus. Ears: Clear. Throat: Noninjected. NECK: Supple. HEART: Regular, S1 and S2. LUNGS: Clear. ABDOMEN: Soft. EXTREMITIES: No edema. SKIN: Without rash. NEUROLOGIC: Grossly consistent with deconditioning. He is able to move both lower extremities. VASCULAR: Legs warm to touch. PSYCHOLOGIC: Confused, easily agitated. IMPRESSION: A 77-year-old male admitted with bilateral lower extremity weakness in the setting of spinal arthritis, unremarkable CT's of the head. No evidence of acute stroke with comorbidities of [id number] schizoaffective disorder with acute psychosis and comorbidities of type 2 diabetes mellitus, stable atherosclerotic heart disease, peptic ulcer disease with gastroesophageal reflux disease, hypothyroidism, chronic hypertension, degenerative arthritis, hyperglycemia. Normal ammonia level on repeat testing of less than 0.9 with therapeutic Synthroid levels showing free T4 of 0.98 and TSH 2.87 normal. PLAN: At present, order physical therapy for reconditioning and gait training. Blood and urine culture showed no growth at 24 hours. He will continue on Abilify 30 mg p.o. at bedtime, Ativan 0.5 mg p.o. every 6 hours p.r.n. anxiety and Ativan 1 mg IV every 4 hours p.r.n. agitation, Colace 100 mg p.o. t.i.d., Depakote 750 mg p.o. b.i.d., Ecotrin 81 mg p.o. daily. The patient did receive one dose of Geodon 20 mg IM earlier this morning under the direction of Dr. Peguero for acute agitation. He also continues on Januvia 50 mg p.o. daily, Protonix 40 mg p.o. daily, Risperdal 2 mg p.o. b.i.d., 0.9 saline at 60 mL per hours, Synthroid 75 mcg p.o. daily, Zestril 5 mg p.o. daily, and Zofran 4 mg IV every 6 hours p.r.n. nausea and vomiting. He is ordered to have a heart-healthy soft bland diet, fall precautions. SCD antiembolism stockings. Physical therapy for ambulation safety. When cleared by Psychiatry and stabilize psychiatrically, he will return to his halfway environment at the [facility] in [place], [place], where he resides on a chronic basis. Greater than 35 minutes was spent in the care management, review of labs, orders, and outlining of treatment plan with nurse, Nimco Morris today. All questions were answered. Karlie Green MD BALA
[2018-02-20 16:22] LABS: PH,URINE 7.5 (4.7-8.0); URINE BILIRUBIN NEGATIVE (NEGATIVE); URINE BLOOD TRACE-INTACT (NEGATIVE); URINE GLUCOSE (UA) NEGATIVE (NEGATIVE); URINE LEUKOCYTE ESTERASE MODERATE Leu/uL (NEGATIVE); URINE PROTEIN NEGATIVE mg/dL (<30 mg/dL)
[2018-02-20 16:25] LABS: URINE APPEARANCE SLIGHT-CLOUDY (CLEAR); URINE COLOR YELLOW (YELLOW)
[2018-02-20 16:30] LABS: URINE RBC 0 - 2 /hpf (0-2)
[2018-02-20 16:31] LABS: URINE BACTERIA MOD (NEG); URINE WBC 0 - 2 /hpf (0-6)
[2018-02-21 07:19] VITALS: RESP 18
[2018-02-21] MEDS: Levothyroxine 75 MCG TAB PO SCH (08:27)
[2018-02-21] MEDS: Pantoprazole 40 mg EC Tab PO SCH (08:27)
[2018-02-21] MEDS: Divalproex 250 mg DR (BID formulation) PO SCH ×2 (09:12→17:28)
--- NOTE | 2018-02-22 07:44 | CON ---
Copied To: Kaci Richter MD Attending MD: Kaci Richter MD DATE: 02/21/[address] Jeffrey was involved into the care of this patient. Dr. Jeffrey will be on vacation and this music writer is taking over. HISTORY OF PRESENT ILLNESS: Shortly, the patient is a 77-year-old male with history of chronic paranoid schizophrenia, multiple medical problems. The patient was admitted on the medical site for evaluation of lower extremity weakness and difficulty to getting out of chair while at lunch with his family. The patient lives in [facility] in [place]. The patient was visiting his family and during the lunchtime all of a sudden, the patient became weak in lower extremities that is why family brought him for evaluation, rule out stroke. Psych consult was called because of history of mental illness. The patient also presented to be disorganized, also psychotic, also required frequent PRN. The patient also has tendency of pulling IV lines and presented to be bizarre. This music writer evaluated the patient. Reviewed previous notes of Dr. Jeffrey; discussed case with primary care physician, Dr. Green; also the patient has power of employment attorney, Latanya, his . Official paper was requested by medical team and filed into the chart. Latanya's phone number is [phone]. Latanya is power of employment attorney for finances as well as medical decisions and surgeries. The patient was seen and examined. The patient presented to be bizarre, poor personal hygiene. This music writer tried to evaluate the patient while he was eating. The patient needs assistance with eating because the patient is very clumsy and has a lot of food dropping on his chest. The patient presented to be bizarre, smiling inappropriately, first statement was "I love you." The patient also has statements like "I hate Dr. Pennington, I do not know, I hate all Dr. Pennington". The patient also started to scream in the middle of the conversation saying "other hospital feed s...t." Within couple of seconds, the patient is smiling to this music writer inappropriate. There is no meaningful conversation possible because the patient is screaming with no reasons, required to have PRNs, also making inappropriate statements. This music writer contacted [facility] [phone], spoke to the nurse Nakita Polk. Nakita reported that for past 2 weeks, the patient exhibit inappropriate in sexual remarks, was telling that somebody is masturbating him, which is absolutely not true. The patient was offering some sexual favors for others, this behavior is not new for the patient, but the patient was not able to be redirected; before, the patient was able to, but not now. The patient's medications were recently changed. The patient was weaned off Zoloft and Klonopin 1 mg daily was started, first dose was Monday morning. As per staff, the patient has long history of schizophrenia, had multiple admissions in the past, few admission at [facility]. The patient follow up with psychiatrist Dr. Chang, last visit was last Monday, phone number [phone]. This music writer called Dr. Chang, left him a message and awaiting for a call back. Prolonged conversation took place with the patient's power of employment attorney, I discuss treatment options, risks, benefits and alternatives of the medications. This music writer suggested Abilify needs to be weaned off and instead of it, conventional medication such as Thorazine should be initiated. The patient also is on Risperdal; for now, we will continue that medication. NARCISA Beebe was in agreement with treatment plan, willing to sign consent for treatment for the and who come over in order to sign consent. Latanya also asked this music writer to talk to the patient's brother, Panda on [phone]. As per Panda, the patient has long history of mental illness. The patient was admitted on multiple occasions to [facility]; once, he stayed in the hospital for 6 years. The patient also has history of disorganized behavior, but no suicidal attempts in the past. Most recent admission was many years ago. Baseline of the patient would be quiet, also the patient likes singing and enjoy karaoke. At present moment, the patient is not at his baseline of functioning. Vital signs are stable. Temperature 97.6, pulse is 60, blood pressure 123/76, respirations 18, oxygen saturation is 98%. MEDICATIONS: Reviewed. The patient is on Tylenol, Abilify 30 mg at the nighttime, aspirin, Klonopin 1 mg daily, Depakote 750 twice a day, Colace 100 mg three times day, Synthroid, lisinopril, Ativan 1 mg IV push every 4 hours as needed, Protonix, Risperdal 2 mg twice a day, Januvia 50 mg daily, sodium chloride. LABORATORY DATA: Labs reviewed, most recent was from 02/18/2018. Coagulation reviewed. Chemistry reviewed. Urinalysis reviewed. Leukocyte esterase moderate. Microbiology, no growth so far. The patient was seen by physical therapy, subacute rehab recommended. Also, the patient is recommended to have physical therapy 3 to 5 times a week. The patient was able to ambulate. The patient also was seen by speech and swallow, was seen by. Dr. Young, notes reviewed. There is no signs of stroke. MENTAL STATUS EXAMINATION: As this music writer described above. The patient presented to be disorganized, screaming in the middle of the conversation. Mood described as "fine, I love you." Affect was expanded, inappropriate. Thought process seems to be disorganized. Thought content, the patient is disorganized, screaming, yelling, also making inappropriate sexual remarks. Insight and judgment seems to be very limited. Impulses are unpredictable. As per collateral information, as per nurses, the patient needs to have frequent PRNs. The patient tried to climb off the bed as well as trying to pull IV lines of him. Insight and judgment impaired, impulses are unpredictable. IMPRESSION: The patient has a long history of paranoid schizophrenia. The patient also most likely in delirium stage. PLAN: Medication list from [facility] are requested. The patient was on Abilify, which will be weaned off. The patient is on aspirin, Bactroban, Colace, Depakote 750 twice a day will be continued, furosemide 40 mg daily will be continued, Januvia 50 mg daily will be continued. Klonopin will be stopped. Levothyroxine will be continued. Lisinopril will be continued. Multivitamins will be continued. [place] spray, nasal spray will be continued. Pantoprazole will be continued. Risperdal will be continued as of now. Thorazine will be started 25 mg twice a day as well as at the nighttime and p.r.n. Thorazine. This music writer left a message to the patient's psychiatrist, the patient's power of employment attorney Latanya, his signed consent for treatment. We will need to transfer the patient for further evaluation and stabilization to the psychiatric inpatient unit. Dr. Green will be following the patient on the psych floor. Physical therapy will be continued. It took more than 45 minutes of this music writer's time to address all of the needs of this patient. Thank you very much for letting me participate in care of your patient. Should you have any questions, give me a call back. The patient will be transferred to psych unit today. Kaci Richter MD MTDD
[2018-02-22] MEDS: Divalproex 250 mg DR (BID formulation) PO SCH (10:59)
[2018-02-22] MEDS: Levothyroxine 75 MCG TAB PO SCH (11:01)
[2018-02-22] MEDS: Pantoprazole 40 mg EC Tab PO SCH (11:01)
--- NOTE | 2018-02-22 12:03 | PN ---
Copied To: Karlie Green MD Attending MD: Karlie Green MD DATE: 02/21/2018 SUBJECTIVE: This 77-year-old male was examined at bedside. This case was reviewed in detail with his nurse. Kelli Carson, registered nurse and Dr. Kaci Richter, Psychiatry. The patient remains hospitalized with exacerbation of paranoid psychosis. He remains easily agitated, confused, weak and deconditioned, but has been ruled out for acute stroke. The patient was admitted with manic psychosis and inability to ambulate due to bilateral lower extremity weakness. Head CT x2 was negative for acute stroke or hemorrhage and a lumbar spine and thoracic spine CT were consistent with spinal stenosis and arthritis. I did review his 2-D echocardiogram which shows left ventricular hypertrophy, but normal wall motion, and no significant valvular pathology and of note, the patient does have a chronic pacemaker. The patient is now being evaluated by Psychiatry for adjustment of psychotropic medication given his schizoaffective disorder diagnosis and unstable psychiatric status. He does reside in a [facility] chronically, but is unable to ambulate independently at present and is receiving bedside physical therapy. PHYSICAL EXAMINATION: VITAL SIGNS: The patient was noted to have a temperature of 97.8, respirations 18, pulse 59 and blood pressure 146/73 with pulse ox 96% on room air. HEENT: Head normocephalic, atraumatic. Eyes: No icterus. Ears clear. Throat: Noninjected. NECK: Supple. HEART: Regular S1, S2. LUNGS: Clear. ABDOMEN: Soft. EXTREMITIES: No edema. SKIN: No rash. VASCULAR: Legs warm to touch. PSYCHOLOGICAL: Alert, but confused. NEURO: Markedly deconditioned. LABORATORY DATA: White count 4700, hemoglobin 14.3, hematocrit 41.3, platelets 96,000. PT/INR 1.05, PTT 29.4. Blood sugar this morning was 133. Urinalysis showed moderate bacteria. Valproic acid level is therapeutic at 61. IMPRESSION: A 77-year-old male with bilateral lower extremity weakness which renders him non-independent in ambulation with comorbidities of chronic bipolar schizoaffective disorder, now with acute exacerbation with manic episode and confusional psychosis with extreme periods of agitation as well as history of type 2 diabetes mellitus, peptic ulcer disease with gastroesophageal reflux disease, hypothyroidism, degenerative arthritis, chronic hypertension and stable atherosclerotic heart disease with chronic permanent pacemaker placement. PLAN: The plan as discussed with Nursing and Dr. Kaci Richter from Psychiatry will be to continue Abilify 30 mg p.o. at bedtime, Ativan one 1 mg IV every 4 hours p.r.n. agitation, Colace 100 mg p.o. t.i.d. and Depakote 750 mg p.o. b.i.d., Ecotrin 81 mg p.o. daily, Januvia 50 mg p.o. daily, Klonopin 1 mg p.o. daily, Protonix 40 mg p.o. daily, Risperdal 2 mg p.o. b.i.d., 0.9 saline at 60 mL/hour, Synthroid 75 mcg p.o. daily, Zestril 5 mg p.o. daily, Tylenol 650 p.o. every 6 hours p.r.n. pain or temperature greater than 101 and Zofran 4 mg IV every 6 hours p.r.n. nausea and vomiting. The patient is scheduled for bedside physical therapy for ambulation and gait safety training. To date, blood and urine cultures are unremarkable. He remains on a heart-healthy soft bland diet. He remains on fall precautions with antiembolism SCD stockings being applied until the patient is physically more reconditioned. Based on Dr. Kaci Richter's recommendation from Psychiatry, the patient will either be admitted to the Psychiatric Unit or will be readied for discharge to the [facility] where he resides. Greater than 35 minutes was spent in the care management, review of labs, orders, adjustment of medication and outlining of patient care with nurse, Kelli Carson today. All questions were answered. Karlie Grene MD
--- NOTE | 2018-02-22 14:51 | CON ---
Copied To: Ankur Chew MD Attending MD: Ankur Chew MD DATE: 02/22/2018 The patient is a 77-year-old male with a history of chronic paranoid schizophrenia who is being seen by Psychiatry on the medical side due to paranoid decompensation of psychotic symptoms. Review of Dr. Richter's consultation as well as Dr. Jeffrey's consultation indicates that patient has been bizarre, disorganized, paranoid and unpredictable. Ankur Chew MD
[2018-02-22 15:42] VITALS: BP 94/56; PULSE 51; TEMP 98.7; O2SAT 93
--- NOTE | 2018-02-23 06:04 | CON ---
Copied To: Ankur Chew MD Attending MD: Ankur Chew MD DATE: 02/22/2018 HISTORY OF PRESENT ILLNESS: The patient is a 77-year-old male with a history of chronic paranoid schizophrenia, who has been seen by Psychiatry on the medical floor due to recent decompensation of psychotic symptoms. The patient has been exhibiting paranoia, agitated and restless behavior, generally unpredictable and is demonstrating his symptoms of cooperation and relative calmness during baseline. It was determined that the patient will be transferred to the Psychiatric Unit for further stabilization while he is medically cleared. Dr. Richter had prolonged conversation with the patient's power of deputy commonwealth's attorney who also agreed with her recommendation with a plan that Abilify would be weaned off and conventional medication such as Thorazine would be initiated. I met with the patient at bedside and he is though not as bizarre as documented in prior notes. He smiles frequently during the course of our conversation and it is a little odd and responses are apparently relevant to questioning. He is aware that he is in the hospital; however does not know the current year, he says 2011. He does know that he is in [facility] and that it is February. He denies any instance of perceptual disturbance or paranoia and vehemently denies that he is depressed. The patient also denies that he has any new discomfort or pain since yesterday. He believes his medications are Prolixin and Cogentin as well as Abilify. He has been on review of staff nurse as well as discussion, continues to be unpredictable, restless and tries to get out of bed in the middle of night and has episodes of screaming and still demonstrates very poor insight and judgement in his current diagnoses and recommendations. Laboratory data and vitals were reviewed that was provided. MEDICATIONS: Psychiatric medications include Abilify 30 mg at bedtime, Klonopin 1 mg daily, Depakote 750 mg p.o. b.i.d., Ativan 0.5 mg p.o. every 6 p.r.n. as well as 1 mg IV every 4 p.r.n., Risperdal 2 mg p.o. b.i.d. IMPRESSION: Chronic paranoid schizophrenia, recent decompensation, rule out contributing factors of delirium. RECOMMENDATIONS: The patient meets criteria for Psychiatric admission at this time. The patient needs transfer to the Psychiatric Unit once medically cleared provided POA signed consent.. At that time, Abilify will be discontinued per Dr. Richter, Risperdal would be continued and we will start low dose Thorazine or Prolixin. Ankur Chew MD
== END 2018-02-22 16:05 | DRG 552 ==
LOC: ED 09:55 → ERH 12:24 → 2RNO 14:54 → OBSVTOIN 02-19 10:49 → 5RNO 02-20 16:47
PROVIDERS: ADMIT Internal Medicine; ATTEND Internal Medicine
DX: M48.061 Spinal stenosis, lumbar region without neurogenic claudication (principal); F20.0 Paranoid schizophrenia; M46.96 Unspecified inflammatory spondylopathy, lumbar region; E03.9 Hypothyroidism, unspecified; E11.40 Type 2 diabetes mellitus with diabetic neuropathy, unspecified; E78.5 Hyperlipidemia, unspecified; I11.9 Hypertensive heart disease without heart failure; I25.10 Atherosclerotic heart disease of native coronary artery without angina pectoris; K21.9 Gastro-esophageal reflux disease without esophagitis; K27.9 Peptic ulcer, site unspecified, unspecified as acute or chronic, without hemorrhage or perforation; G89.29 Other chronic pain; I25.2 Old myocardial infarction; Z79.899 Other long term (current) drug therapy; Z87.11 Personal history of peptic ulcer disease; Z87.891 Personal history of nicotine dependence; Z88.0 Allergy status to penicillin; Z95.0 Presence of cardiac pacemaker

== ENCOUNTER 2018-02-22 16:05 | Inpatient (IN) | payer MEDICARE, OTHER ==
[2018-02-22] MEDS: Divalproex 250 mg ER (ONCE DAILY formulation) PO SCH (19:20)
--- NOTE | 2018-02-22 20:24 | PCM.BM ---
<Belén Black - Last Filed: 02/22/18 20:21> Treatment Plan Problems - Problems identified on initial assessmt ineffective coping Date Initiated: 02/22/18 Time Initiated: 20:21 Assessment reference: NA Status: Active activity intolerance Date Initiated: 02/22/18 Time Initiated: 20:22 Assessment reference: NA Status: Active self care deficit Date Initiated: 02/22/18 Time Initiated: 20:23 Assessment reference: NA Status: Active social isolation Date Initiated: 02/22/18 Time Initiated: 20:24 Assessment reference: NA Status: Active Treatment assets and liabiliti Patient Assests: cooperative, good support system Patient Liabilities: dietary restrictions, imparied memory - Milieu Protocol Maintain good personal hygiene: every shift Encourage regular showers, every shift Remind patient to perform daily oral care, every shift Assist patient to perform ADL's Conduct patient checks and document Observation sheet: 1:1 Maintain personal safety: every shift Educate patient to report safety concerns to staff, every shift Monitor environment for contraband/sharps Medication safety: Monitor for expected outcome, potential side effects: every shift, Assess barriers to learning: every shift, Assess readiness for medication education: every shift Discharge/Continuing Care - Education Needs Education Needs: Patient Medication, Patient Diagnosis/Disease Process, Patient Coping Skills, Patient Personal Hygiene/Grooming - Discharge Discharge Criteria: Tolerates medication w/o severe side effects, Free of agitation, Ability to care for self <Kaci Richter - Last Filed: 02/23/18 14:34> - Diagnosis (1) Schizoaffective disorder Status: Acute Interventions: 02/23/18 14:34 Psychoeducation/psychotherapy Psychopharmacology/adjustment of medications as needed/ monitoring possible side effects Evaluate pt on daily basis Compliance with medications and follow up appointments Long acting medication if pt is noncompliant with pill form Suicide and homicide risk assessment and prevention, coping strategies, safety plan Relapse prevention Reduction of symptoms Improve functional status Family involvement
[2018-02-23] MEDS: Pantoprazole 40 mg EC Tab PO SCH (06:16)
[2018-02-23] MEDS: Levothyroxine 75 MCG TAB PO SCH (06:16)
[2018-02-23] MEDS: Divalproex 250 mg ER (ONCE DAILY formulation) PO SCH ×2 (09:00→16:48)
[2018-02-23] MEDS: Multivitamin With Minerals Tab PO SCH (09:26)
--- NOTE | 2018-02-23 14:33 | PCM.PSYCH ---
Initial Psychiatric Evaluation - Initial Psychiatric Evaluation Type of Admission: Voluntary Legal Status: DPOA (pt's NARCISA signed consent) Chief Complaint (in patient's own words): "f..you, f..ck you all" Patient's Reaction to Hospitalization: pt was transferred from the medical floor for evaluation of disinhibited behavior, delusions, not be able to be redirected. History of Present Illness and Precipitating Events: shortly pt is 78yo Male with long and debilitated h/o bipolar disorder with psychosis, vs schizoaffective disorder bipolar type, multiple psychiatric admissions, including state hospitalizations, see consultation for more detailed information, pt currently lives in [facility], initially was admitted on the medical site for evaluation of fall and AMS, psych consult was called for evaluation of AMS, agitation, aggression, pt needed to have multiple PRNs on the medical floor, discussed with pt's POA Latanya Gomeztungmaryan, brother as well, today discussed with pt's psychiatrist , pt requires further evaluation and stabilization, meds adjustment. pt was seen in his room, pt presented to be disorganized, was randomly answering for the questions, pt would scream "f...ck you, f...ck you all", then would smile then scream "other hospitals feed you sh...t, leave you in sh...t, cover you with sh...t", but reported he likes food in [place], pt also was fixated on the lip chopstick, was keep asking and asking for it, staff was advised to check supply and provide it to the pt. pt presented with poor personal hygiene, poor ADLs, wears diapers, as per report from the 1:1 sitter, pt ate. pt presented to be disorganized chronic delusions, disorganized thoughts and behavior. pt tolerates med well so far, no side effects observed or reported, AIMS 0, no EPS. discussed with pt's family: no h/o abuse, no h/o drug use, pt has multiple psychiatric admissions, see consult notes for more detailed info. as per family baseline pt will be quiet, pt loves singing, enjoys karaoke. as per RN at the assisted living facility, pt was disorganized, was delusional that he was touched inappropriately (it is not true), was offering sexual favors to others were not able to be redirected. discussed with pt's psychiatrist today 02/23/18, pt was on abilify , depakote, risperdal, one dose of klonopin was given and pt had AMS and almost fell. no benzos recommended, discussed option of thorazine/prolixin. Lab Results 02/23/18 07:43: POC Glucose (mg/dL) 100 02/22/18 21:12: POC Glucose (mg/dL) 119 H Vital Signs Temp Pulse Pulse Resp BP 02/23/18 09:00 77 139/84 02/23/18 06:56 97.6 F 77 20 139/84 02/22/18 17:53 75 18 Current Medications: Active Medications Generic Name Dose Route Start Last Admin Trade Name Freq PRN Reason Stop Dose Admin Acetaminophen 650 mg 02/22/18 17:49 Tylenol 325mg Tab PO Q6H PRN Pain, moderate (4-7) Aspirin 81 mg 02/23/18 08:00 02/23/18 09:28 Ecotrin PO 81 mg DAILY SHERRY Administration Chlorpromazine 25 mg 02/23/18 08:00 02/23/18 09:00 Thorazine PO 25 mg BID SHERRY Administration Protocol Chlorpromazine 25 mg 02/22/18 22:00 02/22/18 21:21 Thorazine PO 25 mg HS SHERRY Administration Protocol Chlorpromazine 50 mg 02/22/18 17:46 02/23/18 05:10 Thorazine IM 50 mg TID PRN Administration Agitation Protocol Divalproex Sodium 750 mg 02/22/18 17:00 02/23/18 09:00 Depakote Er(Once Daily) PO 750 mg BID SHERRY Administration Protocol Docusate Sodium 100 mg 02/22/18 18:00 02/23/18 09:26 Colace PO 100 mg TID SHERRY Administration Furosemide 40 mg 02/23/18 08:00 02/23/18 09:00 Lasix PO 40 mg DAILY SHERRY Administration Levothyroxine Sodium 75 mcg 02/23/18 06:00 02/23/18 06:16 Synthroid PO 75 mcg 0600 SHERRY Administration Lisinopril 5 mg 02/23/18 08:00 02/23/18 09:00 Zestril PO 5 mg DAILY SHERRY Administration Multivitamins/Minerals 1 tab 02/23/18 08:00 02/23/18 09:26 Therapeutic-M Tab PO 1 tab 0800 SHERRY Administration Pantoprazole Sodium 40 mg 02/23/18 06:00 02/23/18 06:16 Protonix Ec Tab PO 40 mg 0600 SHERRY Administration Risperidone 2 mg 02/22/18 22:00 02/23/18 09:00 Risperdal Tab PO 2 mg AMHS SHERRY Administration Protocol Sitagliptin Phosphate 50 mg 02/23/18 08:00 02/23/18 09:28 Januvia PO 50 mg DAILY SHERRY Administration Zaleplon 5 mg 02/22/18 17:47 Sonata PO HS PRN Insomnia Past Psychiatric History - Past Psychiatric History Previous Treatment History: Inpatient Prior Professional Help: see HPI Prior Psychiatric Treatment: see HPI At what hospital: see HPI Duration: see HPI Nature of Treatment: see HPI Explanation of prior treatment: see HPI History of Abuse: see HPI History of ETOH/Drug Use: see HPI History of Family Illness: see HPI Pertinent Medical Hx (Current Medical&Sleep Prob, Allergies): Allergies Allergy/AdvReac Type Severity Reaction Status Date / Time Penicillins Allergy SWELLING Verified 02/22/18 16:48 valsartan [From Diovan] Allergy URTICARIA Verified 02/23/18 06:05 Dye used in Cat Scans Allergy URTICARIA Uncoded 02/23/18 06:05 Sulfa Drugs Allergy URTICARIA Uncoded 02/23/18 06:05 Aripiprazole [Abilify] 30 mg PO HS 02/18/18 Aspirin [Aspirin Chewable] 81 mg PO DAILY 02/18/18 Clonazepam [Klonopin] 1 mg PO DAILY 02/18/18 Divalproex Sodium [Divalproex Sodium ER] 750 mg PO Q12 02/18/18 Docusate [Colace] 100 mg PO TID 02/18/18 Furosemide [Lasix] 40 mg PO DAILY 02/18/18 Levothyroxine Sodium [Levoxyl] 75 mcg PO ACB 02/18/18 Lisinopril [Zestril] 5 mg PO DAILY 02/18/18 Multivitamin with Minerals [Daily Vitamin Formula-Minerals] 1 tab PO DAILY 02/18 Pantoprazole Sodium [Protonix] 40 mg PO ACB 02/18/18 Risperidone [Risperdal] 2 mg PO BID 02/18/18 SITagliptin [Januvia] 50 mg PO DAILY 02/18/18 Review of Systems - Review of Systems Systems not reviewed;Unavailable: Acuity of Condition - EENT Eyes: As Per HPI Ears: As Per HPI Nose/Mouth/Throat: As Per HPI - Cardiovascular Cardiovascular: As Per HPI - Respiratory Respiratory: As Per HPI - Gastrointestinal Gastrointestinal: As Per HPI - Genitourinary Genitourinary: As Per HPI - Reproductive: Male Reproductive:Male: As Per HPI - Musculoskeletal Musculoskeletal: As Par HPI - Integumentary Integumentary: As Per HPI - Neurological Neurological: As Per HPI - Psychiatric Psychiatric: As Per HPI - Endocrine Endocrine: As Per HPI - Hematologic/Lymphatic Hematologic: As Per HPI Mental Status Examination - Personal Presentation Personal Presentation: Looks older than stated age - Affect Affect: Constricted, Flat - Motor Activity Motor Activity: Psychomotor Agitation - Reliability in Providing Information Reliability in Providing Information: Poor, due to alteration in thoughts, Poor , due to altered mood, Poor, due to cognitve impairment - Speech Speech: Disorganized, Irrelevant, Tangential - Formal Thought Process Formal Thought Process: Delusions, Paranoia, Loosening of associations - Hallucinations/Delusions Delusions: Persecution - Obsessions/Compulsions Obsessions: None Compulsions: None - Cognitive Functions Orientation: Person Sensorium: Alert Attention/Concentration: Easily distracted Abstract Thinking: [place] Estimate of Intelligence: Below average Judgement: Intact, as evidence by: Insight regarding need for hospitalization - Risk Risk: Diminished functioning - Strength & Assets Inventory Strength & Assets Inventory: Family support, Life experience, Cooperative - Limitations Limitations: Other (severe mental illness) DSM 5 DX - DSM 5 DSM 5 Diagnosis: r/o schizoaffective disorder bipolar type r/o bipolar disorder with psychosis r/o schizophrenia - Recommended/Plan of Treatment Treatment Recommendations and Plan of Treatment: milieu/structure/supportive therapy family involved medical consult appreciated Aripiprazole [Abilify] d/c thorazine 25mg po bid and hs for psychosis will consider prolixin Aspirin [Aspirin Chewable] 81 mg PO DAILY will be continued Clonazepam [Klonopin] 1 mg PO DAILY d/c Divalproex Sodium [Divalproex Sodium ER] 750 mg PO Q12 will be continued will monitor depakote level Docusate [Colace] 100 mg PO TID continued Furosemide [Lasix] 40 mg PO continued Levothyroxine Sodium [Levoxyl] 75 mcg PO ACB continued Lisinopril [Zestril] 5 mg PO DAILYcontinued Multivitamin with Minerals [Daily Vitamin Formula-Minerals] continued Pantoprazole Sodium [Protonix] 40 mg PO ACB continued Risperidone [Risperdal] 2 mg PO BID continued SITagliptin [Januvia] 50 mg PO DAILY continued SW evaluation collaterals appreciated from family, Ppsychiatrist, RN from the assisted living Will monitor closely Pt was educated about risk/benefits and alternatives of medications, coping strategies (safety plan, suicide prevention), relapse prevention, importance of follow up with psychiatrist and therapist, stay away from drugs/alcohol/smoking for now pt will continue on 1:1 observation Projected ELOS: 7days Prognosis: guarded Discharge Plan and Discharge Criteria: Pt will be not depressed or manic, will be more hopeful, will be not psychotic or anxious, will be not having thoughts of harming self or others, will be tolerating medications well, will not have major side effects, will be able to function, will not pose threat to self or others. - Smoking Cessation Smoking Cessation Initiated: No Reason for not providing: pt does not smoke
[2018-02-24] MEDS: Levothyroxine 75 MCG TAB PO SCH (06:44)
[2018-02-24] MEDS: Pantoprazole 40 mg EC Tab PO SCH (06:44)
--- NOTE | 2018-02-24 09:44 | PCM.PYCHPN ---
Psychiatric Progress Note - Psychiatric Progress Note Patient seen today, length of contact: 25 Problems Identified/Issues Discussed: Patient is 78 yo Male with long and debilitative history of bipolar disorder with psychosis, vs schizoaffective disorder bipolar type, multiple psychiatric admissions, including state hospitalizations, who was transferred from the medical floor for treatment of disorganization and agitation. Admission was signed by patient's POA, his Latanya Frazier. Patient continues to be unpredictable on the psychiatric unit. Thought process is disorganized with some FOI. Multiple staff have noted his lability and paranoia. Patient has periods of intermittent yelling, swearing and self- escalation. His hygiene is poor and patient has very limited understanding of his current situation. He is pleasant with me this morning however quite confused. His responses are generally not consistent or relevant to questioning though he can be redirected to be more focused sometimes. A productive interview is still difficult to maintain due to his disorganization. Patient denies any current discomfort or pain and he doesn't appear to be in any distress. Insight and judgement remain poor. Diagnostic Results: r/o schizoaffective disorder bipolar type r/o bipolar disorder with psychosis r/o schizophrenia Mental Status Examination - Cognitive Function Orientation: Person Memory: Impaired Attention: Poor Concentration: Poor Association: Loose Fund of Knowledge: Poor - Mood Mood: Other (labile) - Affect Affect: Constricted, Flat, Other (labile) - Speech Speech: Loud - Formal Thought Process Formal Thought Process: Delusions, Paranoia, Loosening of associations - Suicidal Ideation Suicidal Ideation: No - Homicidal Ideation Homicidal Ideation: No Goal/Treatment Plan - Goal/Treatment Plan Progress Toward Problem(s) and Goals/Treatment Plan: * group, milieu and supportive tx as tolerated * c/w 1:1, patient remains unpredictable * thorazine 25/25/50 and risperdal 2 mg po bid for disorganization, agitation and paranoia * depakote ER 750 mg po bid for impulse and mood control 02/19/18 12:40 Valproic Acid 61 * Sontata 5 mg po HS prn: insomnia * Vitals reviewed and noted below: Selected Entries 02/24/18 06:34 Temperature 98.6 F Pulse Rate 73 Respiratory 20 Rate Blood Pressure 147/88 * No new weekend labs thus far
[2018-02-24] MEDS: Divalproex 250 mg ER (ONCE DAILY formulation) PO SCH ×2 (10:20→17:19)
[2018-02-24] MEDS: Multivitamin With Minerals Tab PO SCH (10:22)
[2018-02-25] MEDS: Levothyroxine 75 MCG TAB PO SCH (06:54)
[2018-02-25] MEDS: Pantoprazole 40 mg EC Tab PO SCH (06:54)
[2018-02-25] MEDS: Divalproex 250 mg ER (ONCE DAILY formulation) PO SCH ×2 (08:45→17:56)
[2018-02-25] MEDS: Multivitamin With Minerals Tab PO SCH (08:47)
--- NOTE | 2018-02-25 08:49 | PCM.PYCHPN ---
Psychiatric Progress Note - Psychiatric Progress Note Patient seen today, length of contact: 25 Problems Identified/Issues Discussed: Patient is 78 yo Male with long and debilitative history of bipolar disorder with psychosis, vs schizoaffective disorder bipolar type, multiple psychiatric admissions, including state hospitalizations, who was transferred from the medical floor for treatment of disorganization and agitation. Admission was signed by patient's POA, his Latanya Frazier. Patient continues to be unpredictable on the psychiatric unit. Thought process is disorganized and scattered. Multiple staff have noted his lability and paranoia. Patient still has intermittent periods of yelling, swearing and self- escalation. He can be religiously preoccupied and repeats quotes the bible numerous times when he is very anxious or upset. Patient has very limited understanding of his current situation. His responses are generally not consistent or relevant to questioning though he can be redirected to be more focused sometimes. A productive interview is still difficult to maintain due to his disorganization. Patient did have a noneventful visit with his family yesterday and per staff notes, appeared to enjoy their company. Patient denies any current discomfort or pain and he doesn't appear to be in any distress. Insight and judgement remain poor. Slept overnight per staff report. Diagnostic Results: r/o schizoaffective disorder bipolar type r/o bipolar disorder with psychosis r/o schizophrenia Mental Status Examination - Cognitive Function Orientation: Person Memory: Impaired Attention: Poor Concentration: Poor Association: Loose Fund of Knowledge: Poor - Mood Mood: Other (labile) - Affect Affect: Constricted, Flat, Other (labile) - Speech Speech: Loud - Formal Thought Process Formal Thought Process: Delusions, Paranoia, Loosening of associations - Suicidal Ideation Suicidal Ideation: No - Homicidal Ideation Homicidal Ideation: No Goal/Treatment Plan - Goal/Treatment Plan Progress Toward Problem(s) and Goals/Treatment Plan: * group, milieu and supportive tx as tolerated * c/w 1:1, patient remains unpredictable * thorazine 25/25/50 and risperdal increased to 1 mg AM, 2 mg PM and 2 mg HS for disorganization, agitation and paranoia * Add very small dose of ativan 0.25 mg AMHS for patient's anxiety, mood control and for EPS prophylaxis. Conservative with benzo because of related increased confusion and disinhibition in elderly associated with high doses of these medications. * depakote ER 750 mg po bid for impulse and mood control 02/19/18 12:40 Valproic Acid 61 * Sonata 5 mg po HS prn: insomnia * Vitals reviewed and noted below: Selected Entries 02/25/18 07:17 Temperature 97.2 F L Pulse Rate 77 Respiratory 20 Rate Blood Pressure 117/81 * No new weekend labs
--- NOTE | 2018-02-25 12:55 | PN ---
Copied To: Karlie Green MD Attending MD: Karlie Green MD DATE: 02/24/2018 SUBJECTIVE: This 77-year-old male was at evaluated at his bedside in the [facility]. I examined him in room 508 bed 1. He had a 1:1 sitter at his bedside. The patient is more alert today, less agitated. He denied any fever, chills, chest pain or shortness of breath. PHYSICAL EXAMINATION: VITAL SIGNS: Temperature 98.6, respirations 20, pulse 73 and blood pressure 147/88. HEENT: Head: Normocephalic, atraumatic. Eyes: No icterus. Ears: Clear. Throat: Noninjected. NECK: Supple. HEART: S1, S2. LUNGS: Clear. ABDOMEN: Soft. EXTREMITIES: No edema. SKIN: Without rash. NEUROLOGICAL: Intact. PSYCHOLOGICAL: Alert. VASCULAR: Legs warm to touch. The patient is eating his lunch, in good spirits. with good appetite. IMPRESSION: Chronic bipolar psychosis, chronic paranoid schizophrenia with recent exacerbation and uncontrolled agitation, now improving, after the discontinuation of Abilify and implementation of Thorazine with comorbidities of atherosclerotic heart disease, chronic hypertension, type 2 diabetes mellitus, peptic ulcer disease with gastroesophageal reflux disease, insomnia, hypothyroidism and degenerative arthritis. I did discuss with the Nursing staff to schedule this patient for physical therapy as able and to get him out of bed to chair. He does continue with 1:1 sitter and he will continue on Zestril, Thorazine, multivitamin, Synthroid, Sonata, Risperdal, Protonix, Lasix, Januvia, Ecotrin, Depakote, Colace and Ativan. Once the patient is medically stable, he will be returning to his intermediate at the [facility] rehab in [place], [place]. Karlie Green MD MTDReyes
--- NOTE | 2018-02-25 13:24 | PN ---
Copied To: Karlie Green MD Attending MD: Karlie Green MD DATE: 02/25/2018 SUBJECTIVE: This 77-year-old male remains hospitalized on the psychiatric hinkle for angry, impulsive behavior which is labile in occurrence and this case was reviewed with nurse, Victorino Franklin, registered nurse. The patient requires a one-to-one sitter, but denies any fever, chills, chest pain, or shortness of breath. PHYSICAL EXAMINATION: VITAL SIGNS: Temperature is 98.6, respirations 20, pulse 73, and blood pressure 147/88. HEENT: Head: Normocephalic, atraumatic. Eyes: No icterus. Ears: Clear. Throat: Noninjected. NECK: Supple. HEART: S1 and S2. LUNGS: Clear. ABDOMEN: Soft. EXTREMITIES: No edema. SKIN: Without rash. NEUROLOGIC: Deconditioned. VASCULAR: Legs warm to touch. PSYCHOLOGIC: Alert and confused. IMPRESSION: A 77-year-old male with chronic bipolar psychosis, now with acute agitation, paranoia, and schizophrenic exacerbation with comorbidities of anxiety neurosis, type 2 diabetes mellitus, hypertension, peptic ulcer disease with gastroesophageal reflux disease, insomnia, hypothyroidism, degenerative arthritis, hypertension, and deconditioning. PLAN: Continue Ativan, Colace, Depakote, Ecotrin, Januvia, Lasix, Protonix, Risperdal, Sonata, Synthroid, multivitamin, Thorazine Tylenol, and Zestril. He continues on a heart-healthy diet. I did discuss with Nursing to schedule him for physical therapy for reconditioning and gait training, and the plan will be to return into the [facility] in [place], [place] when medically stable. Karlie Green MD MTDReyes
--- NOTE | 2018-02-25 13:39 | PN ---
Copied To: Karlie Green MD Attending MD: Karlie Green MD DATE: 02/23/2018 SUBJECTIVE: This 77-year-old male was examined at his bedside in the psychiatric hinkle, room 508. He has a one-to-one sitter present at his bedside and the patient is notably less agitated and more sedated on adjusted psychotropic medication. The patient was initially admitted to the medical hinkle under my direction after concerns of a stroke were raised and disproved, but the patient remained extremely agitated and does carry a diagnosis of longstanding history of paranoid schizophrenia and bipolar psychosis. The patient is a [facility], but in not suitable condition for return at this point and family and Psychiatry were in agreement for him to be transferred to inpatient psychiatric hinkle for adjustment of psychotropic medication. At present, Abilify has been discontinued and Thorazine is being implemented. PHYSICAL EXAMINATION: GENERAL: The patient remains alert, but confused. VITAL SIGNS: His temperature was 97.7, respirations 20, pulse 77 and blood pressure 139/84. HEENT: Head, normocephalic, atraumatic. Eyes: No icterus. NECK: Supple. HEART: S1, S2. LUNGS: Clear. ABDOMEN: Soft. EXTREMITIES: No edema. SKIN: Without rash. NEUROLOGICAL: Deconditioned. VASCULAR: Legs warm to touch. LABORATORY DATA: Random blood sugar 100. IMPRESSION: A 77-year-old male with chronic bipolar psychosis, acute, agitated, paranoid, schizophrenia, type 2 diabetes mellitus, hypertension, peptic ulcer disease with gastroesophageal reflux disease, insomnia, hypothyroidism and degenerative arthritis. PLAN: To continue Ativan, Colace, Depakote, Ecotrin, Januvia, Lasix, Protonix, Risperdal, Sonata, Synthroid, multivitamin, Thorazine, Tylenol and Zestril. He is scheduled to have a heart-healthy diet. He is ordered to have physical therapy for reconditioning and gait training and plan will be to return this patient to long term [facility]ci environment at the [facility] in [facility] when medically stable. Karlie Green MD [facility] # [id number] [facility]
[2018-02-25] MEDS: Insulin Reg-LOW-Coverage SC SCH ×2 (18:00→22:00)
[2018-02-26] MEDS: Pantoprazole 40 mg EC Tab PO SCH (06:27)
[2018-02-26] MEDS: Levothyroxine 75 MCG TAB PO SCH (06:27)
[2018-02-26 07:24] LABS: HEMOGLOBIN 12.7 g/dL (14.0-18.0); MEAN CORPUSCULAR HGB CONC 34.4 g/dl (31.0-37.0); MEAN PLATELET VOLUME 10.1 fl (7.0-11.0); RBC 4.1 10^6/uL (3.5-6.1); RED CELL DISTRIBUTION WIDTH 12.4 % (11.5-14.5); WHITE BLOOD COUNT 5.4 10^3/ul (4.5-11.0)
[2018-02-26 07:35] LABS: ALB/GLOB RATIO 0.9 (1.1-1.8); ALBUMIN 2.6 g/dL (3.0-4.8); ALT/SGPT 19 U/L (7-56); AST/SGOT 21 U/L (17-59); BLOOD UREA NITROGEN 23 mg/dL (7-21); CALCIUM 8.7 mg/dL (8.4-10.5); GFR NON-AFRICAN AMERICAN > 60
[2018-02-26] MEDS: Insulin Reg-LOW-Coverage SC SCH ×4 (08:00→21:19)
--- NOTE | 2018-02-26 09:01 | PCM.PYCHPN ---
Psychiatric Progress Note - Psychiatric Progress Note Patient seen today, length of contact: 25 Problems Identified/Issues Discussed: Patient is 78 yo Male with long and debilitative history of bipolar disorder with psychosis, vs schizoaffective disorder bipolar type, multiple psychiatric admissions, including state hospitalizations, who was transferred from the medical floor for treatment of disorganization and agitation. Admission was signed by patient's POA, his Latanya Frazier. Patient has been a little calmer and more predictable on the psychiatric unit. There have been no major outbursts or agitation in the past 24 hours. Thought process remains scattered and responses can be tangential or completely irrelevant. He is pleasant during most of our encounters and responds well to positive redirection. He can be religiously preoccupied and repeats quotes the bible numerous times when he is very anxious, upset or when this behavior is brought up to him during our conversation. A productive interview is still difficult to maintain due to his disorganization however impulse control and memory are improving. He recalls that I am also from "[facility]". Patient did have a noneventful visit with his family on Monday and per staff notes, appeared to enjoy their company. Patient denies any current discomfort or pain and he doesn't appear to be in any distress. Insight and judgement remain poor. Slept overnight per staff report. Diagnostic Results: r/o schizoaffective disorder bipolar type r/o bipolar disorder with psychosis r/o schizophrenia Medication Change: No Medical Record Reviewed: Yes Mental Status Examination - Cognitive Function Orientation: Person Memory: Impaired Attention: Poor Concentration: Poor Association: Loose Fund of Knowledge: Poor - Mood Mood: Other (labile) - Affect Affect: Constricted, Flat, Other (labile) - Speech Speech: Loud - Formal Thought Process Formal Thought Process: Delusions, Paranoia, Loosening of associations - Suicidal Ideation Suicidal Ideation: No - Homicidal Ideation Homicidal Ideation: No Goal/Treatment Plan - Goal/Treatment Plan Progress Toward Problem(s) and Goals/Treatment Plan: * group, milieu and supportive tx as tolerated * c/w 1:1, patient remains unpredictable * thorazine 25//50 and risperdal increased to 1 mg AM, 2 mg PM and 2 mg HS for disorganization, agitation and paranoia on 02/25/18 * Added very small dose of ativan 0.25 mg AMHS for patient's anxiety, mood control and for EPS prophylaxis on 02/25/18. Conservative with benzo because of related increased confusion and disinhibition in elderly associated with high doses of these medications. * depakote ER 750 mg po bid for impulse and mood control 02/19/18 12:40 Valproic Acid 61 * Sonata 5 mg po HS prn: insomnia * Appreciate f/u by Dr. Green on 02/25/18~ordered PT for reconditioning * Vitals reviewed and noted below: Selected Entries 02/26/18 07:00 Temperature 97.5 F L Pulse Rate 86 Respiratory 20 Rate Blood Pressure 122/71 * New lab results noted below: Laboratory Results - last 24 hr 02/26/18 02/26/18 07:00 07:00 WBC 5.4 RBC 4.10 Hgb 12.7 L Hct 36.9 L MCV 90.0 MCH 31.0 MCHC 34.4 RDW 12.4 Plt Count 100 L MPV 10.1 Sodium 142 Potassium 4.0 Chloride 103 Carbon Dioxide 31 Anion Gap 12 BUN 23 H Creatinine 0.9 Est GFR ( Amer) > 60 Est GFR (Non-Af Amer) > 60 Random Glucose 99 Calcium 8.7 Total Bilirubin 0.7 AST 21 ALT 19 Alkaline Phosphatase 45 Total Protein 5.5 L Albumin 2.6 L Globulin 2.9 Albumin/Globulin Ratio 0.9 L
[2018-02-26] MEDS: Divalproex 250 mg ER (ONCE DAILY formulation) PO SCH ×2 (09:23→16:56)
[2018-02-26] MEDS: Multivitamin With Minerals Tab PO SCH (09:24)
[2018-02-27] MEDS: Levothyroxine 75 MCG TAB PO SCH (05:45)
[2018-02-27] MEDS: Pantoprazole 40 mg EC Tab PO SCH (05:45)
[2018-02-27] MEDS: Insulin Reg-LOW-Coverage SC SCH ×4 (07:54→22:36)
[2018-02-27] MEDS: Multivitamin With Minerals Tab PO SCH (09:08)
[2018-02-27] MEDS: Divalproex 250 mg ER (ONCE DAILY formulation) PO SCH ×2 (09:12→16:47)
--- NOTE | 2018-02-27 10:36 | PCM.PYCHPN ---
Psychiatric Progress Note - Psychiatric Progress Note Patient seen today, length of contact: 25 min Problems Identified/Issues Discussed: Patient is 78 yo Male with long and debilitative history of bipolar disorder with psychosis, vs schizoaffective disorder bipolar type, multiple psychiatric admissions, including state hospitalizations, who was transferred from the medical floor for treatment of disorganization and agitation. Admission was signed by patient's POA, his Latanya Frazier. Patient has been a little calmer and more predictable on the psychiatric unit. There have been no major outbursts or agitation in the past 48 hours. Thought process remains scattered and responses can be tangential. He is making irrelevant statements less frequently and focus is improving in this respect. He is pleasant during most of our encounters and responds well to positive redirection. He can be religiously preoccupied and repeats quotes the bible numerous times when he is very anxious, upset or when this behavior is brought up to him during our conversation however I haven't observed this in over 24 hours. . A productive interview is still difficult to maintain due to his disorganization however impulse control and memory are improving. Patient denies any current discomfort or pain and he doesn't appear to be in any distress. Insight and judgement remain poor but improving. Slept overnight per staff report. Diagnostic Results: r/o schizoaffective disorder bipolar type r/o bipolar disorder with psychosis r/o schizophrenia Medication Change: No Medical Record Reviewed: Yes Mental Status Examination - Cognitive Function Orientation: Person Memory: Impaired Attention: Poor Concentration: Poor Association: Loose Fund of Knowledge: Poor - Mood Mood: Other (labile) - Affect Affect: Constricted, Flat, Other (labile) - Speech Speech: Loud - Formal Thought Process Formal Thought Process: Delusions, Paranoia, Loosening of associations - Suicidal Ideation Suicidal Ideation: No - Homicidal Ideation Homicidal Ideation: No Goal/Treatment Plan - Goal/Treatment Plan Progress Toward Problem(s) and Goals/Treatment Plan: * group, milieu and supportive tx as tolerated * c/w 1:1, patient remains unpredictable * thorazine 25/25/50 and risperdal increased to 1 mg AM, 2 mg PM and 2 mg HS for disorganization, agitation and paranoia on 02/25/18 * Added very small dose of ativan 0.25 mg AMHS for patient's anxiety, mood control and for EPS prophylaxis on 02/25/18. Conservative with benzo because of related increased confusion and disinhibition in elderly associated with high doses of these medications. * depakote ER 750 mg po bid for impulse and mood control 02/19/18 12:40 Valproic Acid 61 * Sonata 5 mg po HS prn: insomnia * Appreciate f/u by Dr. Green on 02/25/18~ordered PT for reconditioning * Vitals reviewed and noted below: Selected Entries 02/27/18 07:00 Temperature 97.5 F L Pulse Rate 73 Respiratory 18 Rate Blood Pressure 118/73 * New lab results noted below: Laboratory Results - last 24 hr 02/26/18 02/26/18 07:00 07:00 WBC 5.4 RBC 4.10 Hgb 12.7 L Hct 36.9 L MCV 90.0 MCH 31.0 MCHC 34.4 RDW 12.4 Plt Count 100 L MPV 10.1 Sodium 142 Potassium 4.0 Chloride 103 Carbon Dioxide 31 Anion Gap 12 BUN 23 H Creatinine 0.9 Est GFR ( Amer) > 60 Est GFR (Non-Af Amer) > 60 Random Glucose 99 Calcium 8.7 Total Bilirubin 0.7 AST 21 ALT 19 Alkaline Phosphatase 45 Total Protein 5.5 L Albumin 2.6 L Globulin 2.9 Albumin/Globulin Ratio 0.9 L
--- NOTE | 2018-02-28 00:25 | PN ---
Copied To: Karlie Green MD Attending MD: Karlie Green MD DATE: 02/27/2018 SUBJECTIVE: This 77-year-old male was examined at his bedside in the presence of his 1:1 sitter and case was reviewed with An Martinez, social work therapist at Psychiatry Unit. The patient remains hospitalized due to deconditioning and exacerbation of acute on chronic paranoid schizophrenia and bipolar psychosis. PHYSICAL EXAMINATION: VITAL SIGNS: Temperature 97.5, respirations 18, pulse 73 and blood pressure 118/73. Physical exam is unchanged. LABORATORY DATA: Remained stable. IMPRESSION: He is a gentleman with type 2 diabetes mellitus, agitation, bipolar psychosis, acute on chronic paranoid schizophrenia, hypertension, stable atherosclerotic heart disease, permanent pacemaker placement, insomnia, hypothyroidism, degenerative arthritis and anemia of chronic disease. PLAN: The plan is to continue this patient on Ativan, Colace, Depakote, Ecotrin, Humulin R insulin coverage before meals and at bedtime, Januvia, Lasix, Protonix, Risperdal, Sonata, Synthroid, therapeutic multivitamin, Thorazine, Tylenol and Zestril. He is receiving physical therapy for reconditioning and gait training and once medically cleared by Psychiatry, will return to the [facility] in [place], [place] for his chronic [facility] care. Karlie Green MD MTDD
--- NOTE | 2018-02-28 01:26 | PN ---
Copied To: Karlie Green MD Attending MD: Karlie Green MD DATE: 02/16/2018 SUBJECTIVE: This 77-year-old male remains hospitalized in the psychiatric hinkle in room 508. He remains weak and deconditioned, is ordered to have physical therapy and remains easily agitated with a chronic diagnosis of bipolar psychosis and exacerbation of paranoid schizophrenia. The patient's Abilify has been discontinued and he has been introduced to Thorazine 25 mg b.i.d., 50 mg Thorazine p.o. at bedtime with an order for Thorazine 50 mg IM t.i.d. p.r.n. severe agitation. PHYSICAL EXAMINATION: VITAL SIGNS: Physical exam revealed temperature 97.5, respirations 20, pulse 86 and blood pressure 127/71. Physical exam is unchanged. LABORATORY DATA: Labs showed white count 5400, hemoglobin 12.7, hematocrit 36.9, platelets 100,000. Random blood sugar 183. IMPRESSION: A 77-year-old male with multiple problems including chronic anxiety, bipolar psychosis, acute paranoid schizophrenia with agitation syndrome, type 2 diabetes mellitus, chronic hypertension, atherosclerotic heart disease, pacemaker chronically placed, chronic insomnia, hypothyroidism, degenerative arthritis and deconditioning. PLAN: The plan is to continue Ativan, Depakote, Ecotrin, Humulin R insulin protocol before meals and at bedtime, Januvia, Lasix, Protonix, Risperdal, Sonata, Synthroid, multivitamin, Thorazine, Tylenol and Zestril. The patient is ordered to have a one-to-one psychiatric sitter, heart-healthy soft bland diabetic diet, physical therapy and ultimate plan is to return this patient to care home care at the [facility] in [facility] when medically stable and cleared by Psychiatry. Karlie Green MD MTDD
[2018-02-28] MEDS: Pantoprazole 40 mg EC Tab PO SCH (06:39)
[2018-02-28] MEDS: Levothyroxine 75 MCG TAB PO SCH (06:39)
[2018-02-28] MEDS: Multivitamin With Minerals Tab PO SCH (09:05)
[2018-02-28] MEDS: Divalproex 250 mg ER (ONCE DAILY formulation) PO SCH ×2 (09:05→17:31)
[2018-02-28] MEDS: Insulin Reg-LOW-Coverage SC SCH ×4 (09:08→23:52)
--- NOTE | 2018-02-28 09:52 | PCM.PYCHPN ---
Psychiatric Progress Note - Psychiatric Progress Note Patient seen today, length of contact: 25 min Problems Identified/Issues Discussed: Patient is 78 yo Male with long and debilitative history of bipolar disorder with psychosis, vs schizoaffective disorder bipolar type, multiple psychiatric admissions, including state hospitalizations, who was transferred from the medical floor for treatment of disorganization and agitation. Admission was signed by patient's POA, his Latanya Frazier. Patient has been calmer and more predictable on the psychiatric unit. There have been no major outbursts or agitation in the past 72 hours though he still has episodes of swearing and muttering. And he continues to make irrelevant statements but his tangential ramblings are occurring less frequently and focus is improving in this respect. Thought process still remains a little scattered. He is very pleasant during most of our encounters and smiles readily. He responds well to positive redirection and seems less religiously preoccupied today. It is getting easier to maintain a fulfilling conversation with him. Patient denies any current discomfort or pain and he doesn't appear to be in any distress. Insight and judgement remain poor but improving. Slept overnight per staff report. Diagnostic Results: r/o schizoaffective disorder bipolar type r/o bipolar disorder with psychosis r/o schizophrenia Medication Change: No Medical Record Reviewed: Yes Mental Status Examination - Cognitive Function Orientation: Person Memory: Impaired Attention: Poor Concentration: Poor Association: Loose Fund of Knowledge: Poor - Mood Mood: Other (labile) - Affect Affect: Constricted, Flat, Other (labile) - Speech Speech: Loud - Formal Thought Process Formal Thought Process: Delusions, Paranoia, Loosening of associations - Suicidal Ideation Suicidal Ideation: No - Homicidal Ideation Homicidal Ideation: No Goal/Treatment Plan - Goal/Treatment Plan Progress Toward Problem(s) and Goals/Treatment Plan: * group, milieu and supportive tx as tolerated * c/w 1:1, patient remains unpredictable * thorazine 25/25/50 and risperdal increased to 1 mg AM, 2 mg PM and 2 mg HS for disorganization, agitation and paranoia on 02/25/18 * Added very small dose of ativan 0.25 mg AMHS for patient's anxiety, mood control and for EPS prophylaxis on 02/25/18. Conservative with benzo because of related increased confusion and disinhibition in elderly associated with high doses of these medications. * depakote ER 750 mg po bid for impulse and mood control: CHECK ANOTHER VPA LEVEL TODAY 02/19/18 12:40 Valproic Acid 61 * Sonata 5 mg po HS prn: insomnia * Appreciate f/u by Dr. Green on 02/25/18 and 02/27/18~ordered PT for reconditioning * Vitals reviewed and noted below: Selected Entries 02/27/18 02/27/18 02/27/18 07:00 09:09 09:10 Temperature 97.5 F L Pulse Rate 73 73 Respiratory 18 Rate Blood Pressure 118/73 118/73 118/73 02/27/18 16:00 Temperature Pulse Rate 84 Respiratory Rate Blood Pressure 125/76 * New lab results noted below: Laboratory Results - last 24 hr 02/26/18 02/26/18 07:00 07:00 WBC 5.4 RBC 4.10 Hgb 12.7 L Hct 36.9 L MCV 90.0 MCH 31.0 MCHC 34.4 RDW 12.4 Plt Count 100 L MPV 10.1 Sodium 142 Potassium 4.0 Chloride 103 Carbon Dioxide 31 Anion Gap 12 BUN 23 H Creatinine 0.9 Est GFR ( Amer) > 60 Est GFR (Non-Af Amer) > 60 Random Glucose 99 Calcium 8.7 Total Bilirubin 0.7 AST 21 ALT 19 Alkaline Phosphatase 45 Total Protein 5.5 L Albumin 2.6 L Globulin 2.9 Albumin/Globulin Ratio 0.9 L
[2018-03-01] MEDS: Pantoprazole 40 mg EC Tab PO SCH (07:38)
[2018-03-01] MEDS: Levothyroxine 75 MCG TAB PO SCH (07:39)
[2018-03-01] MEDS: Insulin Reg-LOW-Coverage SC SCH ×4 (08:35→21:36)
[2018-03-01] MEDS: Multivitamin With Minerals Tab PO SCH (08:37)
[2018-03-01] MEDS: Divalproex 250 mg ER (ONCE DAILY formulation) PO SCH ×2 (08:40→17:54)
--- NOTE | 2018-03-01 09:50 | PN ---
Copied To: Karlie Green MD Attending MD: Karlie Green MD DATE: 02/28/2018 SUBJECTIVE: This 77-year-old male remains hospitalized on the psychiatric hinkle in room 508, bed 1. He is being followed daily by Dr. Ankur Chew, psychiatrist for bipolar psychosis and exacerbation of paranoid schizophrenia. The patient requires a one-to-one sitter because of periods of confusion and agitation and physical exam shows temperature 98.1, respirations 20, pulse 66 and blood pressure 127/74. PHYSICAL EXAMINATION: His physical exam is unchanged. LABORATORY DATA: White count 5400, hemoglobin 12.7, hematocrit 36.9, platelets 100,000 with a random blood sugar of 127. IMPRESSION: A 77-year-old male, admitted with inability to ambulate secondary to spinal arthritis and deconditioning requiring physical therapy for reconditioning and gait training with comorbidities of bipolar psychosis, paranoid schizophrenia, type 2 diabetes mellitus, chronic hypertension, peptic ulcer disease with gastroesophageal reflux disease, chronic insomnia, hypothyroidism, degenerative arthritis and anemia of chronic disease. The patient will continue on the psychiatric hinkle until he is cleared for discharge by Psychiatry. He continues on Ativan, Colace, Depakote, Ecotrin, insulin, Januvia, Lasix, Protonix, Risperdal, Sonata, Synthroid, multivitamin, Thorazine and Zestril. Karlie Green MD MTDD
--- NOTE | 2018-03-01 10:06 | PCM.PYCHPN ---
Psychiatric Progress Note - Psychiatric Progress Note Patient seen today, length of contact: 25 min Problems Identified/Issues Discussed: Patient is 78 yo Male with long and debilitative history of bipolar disorder with psychosis, vs schizoaffective disorder bipolar type, multiple psychiatric admissions, including state hospitalizations, who was transferred from the medical floor for treatment of disorganization and agitation. Admission was signed by patient's POA, his Latanya Frazier. Patient has been calmer and more predictable on the psychiatric unit. There have been no major outbursts or agitation in the past 96 hours (x4 days). Though process continues to be tangential but much more relevant than at admission. Focus is improving in this respect. Thought process still remains a little scattered. He is very pleasant during most of our encounters and smiles readily. He responds well to positive redirection and definitely seems less religiously preoccupied in general. He isn't paranoid at this time. It is getting easier to maintain a productive conversation with him. Patient denies any current discomfort or pain and he doesn't appear to be in any distress. Insight and judgement remain poor but improving. Diagnostic Results: r/o schizoaffective disorder bipolar type r/o bipolar disorder with psychosis r/o schizophrenia Medication Change: No Medical Record Reviewed: Yes Mental Status Examination - Cognitive Function Orientation: Person Memory: Impaired Attention: Poor Concentration: Poor Association: Loose Fund of Knowledge: Poor - Mood Mood: Other (labile) - Affect Affect: Constricted, Flat, Other (labile) - Speech Speech: Loud - Formal Thought Process Formal Thought Process: Delusions, Paranoia, Loosening of associations - Suicidal Ideation Suicidal Ideation: No - Homicidal Ideation Homicidal Ideation: No Goal/Treatment Plan - Goal/Treatment Plan Progress Toward Problem(s) and Goals/Treatment Plan: * group, milieu and supportive tx as tolerated * c/w 1:1, patient is a fall risk. * thorazine 25/25/50 and risperdal increased to 1 mg AM, 2 mg PM and 2 mg HS for disorganization, agitation and paranoia on 02/25/18 * Added very small dose of ativan 0.25 mg AMHS for patient's anxiety, mood control and for EPS prophylaxis on 02/25/18. Conservative with benzo because of related increased confusion and disinhibition in elderly associated with high doses of these medications. * depakote ER 750 mg po bid for impulse and mood control: CHECK ANOTHER VPA LEVEL TODAY 02/19/18 12:40 Valproic Acid 61 * Sonata 5 mg po HS prn: insomnia * Appreciate f/u by Dr. Green on 02/25/18 and 02/27/18~ordered PT for reconditioning * Vitals reviewed and noted below: Selected Entries 02/28/18 02/28/18 02/28/18 07:11 08:45 16:00 Temperature 98.1 F Pulse Rate 66 68 69 Respiratory 20 Rate Blood Pressure 127/74 127/74 126/78 * New lab results noted below: Laboratory Results - last 24 hr 02/26/18 02/26/18 07:00 07:00 WBC 5.4 RBC 4.10 Hgb 12.7 L Hct 36.9 L MCV 90.0 MCH 31.0 MCHC 34.4 RDW 12.4 Plt Count 100 L MPV 10.1 Sodium 142 Potassium 4.0 Chloride 103 Carbon Dioxide 31 Anion Gap 12 BUN 23 H Creatinine 0.9 Est GFR ( Amer) > 60 Est GFR (Non-Af Amer) > 60 Random Glucose 99 Calcium 8.7 Total Bilirubin 0.7 AST 21 ALT 19 Alkaline Phosphatase 45 Total Protein 5.5 L Albumin 2.6 L Globulin 2.9 Albumin/Globulin Ratio 0.9 L
[2018-03-02] MEDS: Pantoprazole 40 mg EC Tab PO SCH (06:46)
[2018-03-02] MEDS: Levothyroxine 75 MCG TAB PO SCH (06:46)
[2018-03-02] MEDS: Divalproex 250 mg ER (ONCE DAILY formulation) PO SCH ×2 (08:21→16:09)
[2018-03-02] MEDS: Multivitamin With Minerals Tab PO SCH (08:22)
[2018-03-02] MEDS: Insulin Reg-LOW-Coverage SC SCH ×4 (08:26→22:01)
--- NOTE | 2018-03-02 09:48 | PCM.PYCHPN ---
Psychiatric Progress Note - Psychiatric Progress Note Patient seen today, length of contact: 25 min Problems Identified/Issues Discussed: Patient is 78 yo Male with long and debilitative history of bipolar disorder with psychosis, vs schizoaffective disorder bipolar type, multiple psychiatric admissions, including state hospitalizations, who was transferred from the medical floor for treatment of disorganization and agitation. Admission was signed by patient's POA, his Latanya Frazier. Patient has become calmer and more predictable on the psychiatric unit over the week. There have been no major outbursts or agitation in the past 5 days. Thought process continues to be tangential but much more relevant than at admission. Focus is also improving in this respect. Thought process still remains a little scattered. He is very pleasant during most of our encounters and smiles readily. He responds well to positive redirection and definitely seems less religiously preoccupied in general. He isn't paranoid at this time. It is getting easier to maintain a productive conversation with him and he is better at expressing his needs. Patient denies any current discomfort or pain and he doesn't appear to be in any distress. Insight and judgment remain poor but improving. Diagnostic Results: r/o schizoaffective disorder bipolar type r/o bipolar disorder with psychosis r/o schizophrenia Medication Change: No Medical Record Reviewed: Yes Mental Status Examination - Cognitive Function Orientation: Person Memory: Impaired Attention: Poor Concentration: Poor Association: Loose Fund of Knowledge: Poor - Mood Mood: Other (labile but improving. He denies depression) - Affect Affect: Constricted, Flat, Other (labile) - Speech Speech: Loud - Formal Thought Process Formal Thought Process: Delusions, Paranoia, Loosening of associations ( Improving focus over the week) - Suicidal Ideation Suicidal Ideation: No - Homicidal Ideation Homicidal Ideation: No Goal/Treatment Plan - Goal/Treatment Plan Progress Toward Problem(s) and Goals/Treatment Plan: * group, milieu and supportive tx as tolerated * c/w 1:1, patient is a fall risk. * thorazine 25//50 and risperdal increased to 1 mg AM, 2 mg PM and 2 mg HS for disorganization, agitation and paranoia on 02/25/18 * Added very small dose of ativan 0.25 mg AMHS for patient's anxiety, mood control and for EPS prophylaxis on 02/25/18. Conservative with benzo because of related increased confusion and disinhibition in elderly associated with high doses of these medications. * depakote ER 750 mg po bid for impulse and mood control: CHECK ANOTHER VPA LEVEL TODAY 02/19/18 12:40 Valproic Acid 61 * Sonata 5 mg po HS prn: insomnia * Appreciate f/u by Dr. Green on 02/25/18, 02/27/18 and 03/01/18~ordered PT for reconditioning * Vitals reviewed and noted below: Selected Entries 03/01/18 03/01/18 03/01/18 07:14 08:34 08:35 Temperature 97.5 F L Pulse Rate 69 69 Respiratory 20 Rate Blood Pressure 132/78 132/78 132/78 03/01/18 16:30 Temperature Pulse Rate 63 Respiratory Rate Blood Pressure 126/97 H * New lab results noted below: Laboratory Results - last 24 hr 02/26/18 02/26/18 07:00 07:00 WBC 5.4 RBC 4.10 Hgb 12.7 L Hct 36.9 L MCV 90.0 MCH 31.0 MCHC 34.4 RDW 12.4 Plt Count 100 L MPV 10.1 Sodium 142 Potassium 4.0 Chloride 103 Carbon Dioxide 31 Anion Gap 12 BUN 23 H Creatinine 0.9 Est GFR ( Amer) > 60 Est GFR (Non-Af Amer) > 60 Random Glucose 99 Calcium 8.7 Total Bilirubin 0.7 AST 21 ALT 19 Alkaline Phosphatase 45 Total Protein 5.5 L Albumin 2.6 L Globulin 2.9 Albumin/Globulin Ratio 0.9 L
--- NOTE | 2018-03-02 12:00 | PN ---
Copied To: Karlie Green MD Attending MD: Karlie Green MD DATE: 03/01/2018 SUBJECTIVE: This 77-year-old male remains hospitalized on the psychiatric hinkle in room 508, bed 1. I did review this patient's case in detail with social worker health services, An Martinez. I have signed paperwork for this patient to be transferred to subacute rehab, which she is in the process of establishing. The patient remains weak and deconditioned and is not ready to return to his halfway care at the [facility] in [place], [place] due to deconditioning. Family is aware and in agreement with subacute rehab disposition. PHYSICAL EXAMINATION: VITAL SIGNS: Temperature is 97.5, respirations 20, pulse 69, and blood pressure 132/78. His physical exam remains unchanged. LABORATORY DATA: Show a white count 5400, hemoglobin of 12.7, hematocrit of 36.9, platelets of 100,000 with a random blood sugar of 141 and sodium of 142, K 4, chloride 103, bicarb 31, BUN 23, creatinine 0.9. All liver function testing normal including bilirubin 0.7, AST 21, ALT 19, and alk phos 45. The patient continues to receive physical therapy for reconditioning, gait training, and is one to one, bedside sitter has been discontinued. He continues on heart-healthy diet, fall precautions, and ultimate plan will be for discharge to subacute rehab when stable. Medications were reviewed with Social Service and will continue to include Ativan, Colace, Depakote, Ecotrin, insulin, Januvia, Lasix, Protonix, Risperdal, Sonata, Synthroid, multivitamin, Thorazine, and Zestril. Karlie Green MD MTDD
--- NOTE | 2018-03-02 16:29 | PCM.FALL ---
Post Fall Progress Note - Post Fall Fall Date: 03/02/18 Fall Time: 15:36 Description of Fall: Pt is a 77 yo M with PMH of bipolar disorder, diabetes type 2, [place], hypertension , and pacemaker with unwitnessed fall. Per nursing, patient was in chair watching TV, nurse stepped away for less than a minute and when he came back patient was found on the floor. No other people were in the room, however most staff were nearby and did not hear a fall. Rajeev aviles was called at 3:36 pm. On arrival, patient was lying on the floor with a blanket behind his head. Patient was AOx3. Patient stated that he was trying to get up to go to the bathroom, but somehow ended up on the floor. Patient could not recall how he ended up on the floor. Patient complained of posterior neck pain. However, patient was freely rotating his neck while lying down without pain. Patient denied pain elsewhere. However, according to the nurses patient has chronic neck pain and had been complaining of that prior to fall and that his memory status was baseline. Patient had not taken any medications since the AM. Patient denied CP , SOB, n/v/d, abdominal pain, fever, chills, VALENZUELA, or dizziness. - Post Fall Exam Vital Sign: Temp Pulse Resp BP Pulse Ox 97.8 F 85 16 136/78 03/02/18 16:24 03/02/18 16:24 03/02/18 16:24 03/02/18 16:24 Skull Exam: Negative for: Scalp wound, Scalp hematoma, Scalp depression, Ridge in skull Eye Exam: Negative for: Pupils equal, Pupils reactive Ear Exam: Negative for: Discharge, Bleeding Nose Exam: Negative for: Discharge, Bleeding Mouth Exam: Negative for: Tongue bitten, Teeth dislodge Neck Exam: Positive for: Tenderness (paraspinal) Spinal Exam: Negative for: Tenderness, Tingling, Weakness Chest Exam: Negative for: Difficulty breathing, Tenderness in collar bones, Tenderness in ribs Abdomen Exam: Negative for: Tenderness Pelvic Exam: Negative for: Tenderness, Hematuria Leg Exam: Negative for: Deformity, Alteration in range of movement Impression/Plan: 77 yo M s/p unwitnessed, possible fall. Likely mechanical. Plan: - Cervical collar, will evaluate continued used after CT - Vitals reviewed, stable - Blood glucose 110 - EKG reviewed, unchanged from previous EKG, no acute ST-T wave changes - Head CT - Cervical CT - Troponin - Orthostatic vital signs - Fall precautions
--- NOTE | 2018-03-02 17:46 | CARD ---
APPROVED REPORT Date of service: 03/02/2018 EKG Measurement Heart [id number] <Conclusion> Sinus rhythm with 1st degree AV block with blocked premature atrial complexes Left axis deviation Nonspecific intraventricular block Lateral infarct, age undetermined Inferior infarct, age undetermined Abnormal ECG
--- NOTE | 2018-03-02 18:36 | CT ---
Date of service: 03/02/2018 PROCEDURE: CT HEAD WITHOUT CONTRAST. HISTORY: fall COMPARISON: 02/19/2018 CT head. TECHNIQUE: Axial computed tomography images were obtained through the head/brain without intravenous contrast. Coronal and sagittal reconstructed images. Radiation dose: Total exam DLP = 1453.80 mGy-cm. This CT exam was performed using one or more of the following dose reduction techniques: Automated exposure control, adjustment of the mA and/or kV according to patient size, and/or use of iterative reconstruction technique. FINDINGS: HEMORRHAGE: No intracranial hemorrhage. BRAIN: No mass effect or edema. Cortical and cerebellar atrophy, periventricular small vessel disease. VENTRICLES: Unremarkable. No hydrocephalus. CALVARIUM: Unremarkable. PARANASAL SINUSES: Unremarkable as visualized. No significant inflammatory changes. MASTOID AIR CELLS: Unremarkable as visualized. No inflammatory changes. OTHER FINDINGS: None. IMPRESSION: No acute intracranial abnormalities. No significant findings to account for the clinical presentation. No significant interval change compared to the prior examination(s).
--- NOTE | 2018-03-02 18:39 | CT ---
Date of service: 03/02/2018 PROCEDURE: CT Cervical Spine without contrast HISTORY: fall COMPARISON: None available. TECHNIQUE: Axial computed tomography images were obtained of the cervical spine without the use of intravenous contrast. Coronal and sagittal reformatted images were created and reviewed. Radiation dose: Total exam DLP = 537.49 mGy-cm. This CT exam was performed using one or more of the following dose reduction techniques: Automated exposure control, adjustment of the mA and/or kV according to patient size, and/or use of iterative reconstruction technique. FINDINGS: VERTEBRAE: No fracture. Normal alignment. No destructive bony lesion. DISCS/SPINAL CANAL/NEURAL FORAMINA: No significant central canal or neural foraminal stenosis. Multilevel degenerative changes C5-6, C6-7. Proliferative hypertrophic osteophytic bar formation noted at these levels impressing upon the central canal. Multilevel uncovertebral hypertrophy. PARASPINAL SOFT TISSUES: Unremarkable. OTHER FINDINGS: None. IMPRESSION: No acute findings related to/accounting for the clinical presentation. Multilevel degenerative change.
[2018-03-03] MEDS: Levothyroxine 75 MCG TAB PO SCH (06:50)
[2018-03-03] MEDS: Pantoprazole 40 mg EC Tab PO SCH (06:50)
--- NOTE | 2018-03-03 09:20 | PCM.PYCHPN ---
Psychiatric Progress Note - Psychiatric Progress Note Patient seen today, length of contact: 25 min Problems Identified/Issues Discussed: Patient is 78 yo Male with long and debilitative history of bipolar disorder with psychosis, vs schizoaffective disorder bipolar type, multiple psychiatric admissions, including state hospitalizations, who was transferred from the medical floor for treatment of disorganization and agitation. Admission was signed by patient's POA, his Latanya Frazier. Patient has become calmer and more predictable on the psychiatric unit over the week. There have been no major outbursts or agitation in the past 6 days. Thought process continues to be tangential and a little scattered but much more relevant than at admission. Focus is also improving in this respect. He is very pleasant during most of our encounters and smiles readily. He responds well to positive redirection and definitely seems less religiously preoccupied in general. He isn't paranoid at this time. It is getting easier to maintain a productive conversation with him and he is better at expressing his needs. Code star was called at 3:36 pm on 03/02/18 because patient was found on the floor. Patient could not remember how he ended up on the floor and may have had an unwitnessed fall. His mental status is unchanged and he denies any current discomfort or pain this morning. He doesn't recall the incident when I discuss it this morning and he doesn't appear to be in any distress. As a precaution, patient was evaluated by Dr. Weiss who ordered EKG as well as back/neck CT ( patient reported some neck discomfort at the time). POA was also informed. Diagnostic Results: r/o schizoaffective disorder bipolar type r/o bipolar disorder with psychosis r/o schizophrenia Medication Change: No Medical Record Reviewed: Yes Mental Status Examination - Cognitive Function Orientation: Person Memory: Impaired Attention: Poor Concentration: Poor Association: Loose Fund of Knowledge: Poor - Mood Mood: Other (labile but improving. He denies depression) - Affect Affect: Constricted, Flat, Other (labile) - Speech Speech: Loud - Formal Thought Process Formal Thought Process: Delusions, Paranoia, Loosening of associations ( Improving focus over the week) - Suicidal Ideation Suicidal Ideation: No - Homicidal Ideation Homicidal Ideation: No Goal/Treatment Plan - Goal/Treatment Plan Progress Toward Problem(s) and Goals/Treatment Plan: * group, milieu and supportive tx as tolerated * Appreciate f/u by Dr. Green on 02/25/18, 02/27/18 and 03/01/18~ordered PT for reconditioning * Appreciate f/u by Dr. Weiss on 03/02/18. Code star was called at 3:36 pm on because patient was found on the floor. Patient could not remember how he ended up on the floor and may have had an unwitnessed fall. His mental status is unchanged and he denies any current discomfort or pain this morning. He doesn 't recall the incident when I discuss it this morning and he doesn't appear to be in any distress. As a precaution, patient was evaluated by Dr. Weiss who ordered EKG as well as back/neck CT (patient reported some neck discomfort at the time). POA was also informed. * c/w 1:1, patient is a fall risk. * thorazine 25/25/50 and risperdal increased to 1 mg AM, 2 mg PM and 2 mg HS for disorganization, agitation and paranoia on 02/25/18 * Added very small dose of ativan 0.25 mg AMHS for patient's anxiety, mood control and for EPS prophylaxis on 02/25/18. Conservative with benzo because of related increased confusion and disinhibition in elderly associated with high doses of these medications. * depakote ER 750 mg po bid for impulse and mood control: 02/19/18 12:40 Valproic Acid 61 * Sonata 5 mg po HS prn: insomnia * Vitals reviewed and noted below: Selected Entries 03/02/18 03/02/18 03/02/18 06:53 16:24 20:20 Temperature 97.5 F L 97.8 F Pulse Rate 65 85 Respiratory 20 16 Rate Blood Pressure 126/76 136/78 Lying Blood 96/62 Pressure [Right Arm] Sitting Blood 99/64 Pressure [Right Arm] Standing Blood 107/82 Pressure [Right Arm] * New lab results noted below: Laboratory Results - last 24 hr 02/26/18 02/26/18 07:00 07:00 WBC 5.4 RBC 4.10 Hgb 12.7 L Hct 36.9 L MCV 90.0 MCH 31.0 MCHC 34.4 RDW 12.4 Plt Count 100 L MPV 10.1 Sodium 142 Potassium 4.0 Chloride 103 Carbon Dioxide 31 Anion Gap 12 BUN 23 H Creatinine 0.9 Est GFR ( Amer) > 60 Est GFR (Non-Af Amer) > 60 Random Glucose 99 Calcium 8.7 Total Bilirubin 0.7 AST 21 ALT 19 Alkaline Phosphatase 45 Total Protein 5.5 L Albumin 2.6 L Globulin 2.9 Albumin/Globulin Ratio 0.9 L
[2018-03-03] MEDS: Divalproex 250 mg ER (ONCE DAILY formulation) PO SCH ×2 (09:22→15:40)
[2018-03-03] MEDS: Insulin Reg-LOW-Coverage SC SCH ×4 (09:24→23:04)
[2018-03-03] MEDS: Multivitamin With Minerals Tab PO SCH (09:24)
--- NOTE | 2018-03-03 14:08 | PN ---
Copied To: Karlie Green MD Attending MD: Karlie Green MD DATE: 03/02/2018 SUBJECTIVE: This 77-year-old male remains hospitalized. He is awaiting acceptance to subacute rehab. The patient has multiple medical and psychiatric comorbidities and remains weak and deconditioned. He is no longer receiving a one-to-one sitter. He denies any fever, chills, chest pain or shortness of breath. PHYSICAL EXAMINATION: VITAL SIGNS: On physical exam today, temperature 97.5, respirations 20, pulse 65 and blood pressure 126/76. Physical exam unchanged. LABORATORY DATA: White count 5400, hemoglobin 12.7, hematocrit 36.9, platelets of 100,000. Random blood sugar 155. IMPRESSION: A 77-year-old male with chronic bipolar psychosis; chronic active paranoid schizophrenia; stable atherosclerotic heart disease; insulin-dependent diabetes mellitus; history of atherosclerotic heart disease; permanent pacemaker placement, stable; chronic hypertension; peptic ulcer disease with gastroesophageal reflux disease; hypothyroidism; chronic insomnia; chronic hypertension and stable anemia of chronic disease. PLAN: The plan is to obtain and secure subacute rehab placement for this patient who is not a candidate to return to his fci care at the [facility] in [place], [place] at this time. He does continue on Ativan, Colace, Depakote, Ecotrin, Humulin R insulin coverage, Januvia, Lasix, Protonix, Risperdal, Sonata, Synthroid, multivitamin, Thorazine, Tylenol and Zestril. He continues on a heart-healthy diet and physical therapy for reconditioning and gait training and will be readied for discharge to subacute rehab once a facility is identified. Karlie Green MD
[2018-03-04] MEDS: Levothyroxine 75 MCG TAB PO SCH (06:54)
[2018-03-04] MEDS: Pantoprazole 40 mg EC Tab PO SCH (06:54)
[2018-03-04] MEDS: Multivitamin With Minerals Tab PO SCH (08:36)
[2018-03-04] MEDS: Divalproex 250 mg ER (ONCE DAILY formulation) PO SCH ×2 (08:37→16:42)
[2018-03-04] MEDS: Insulin Reg-LOW-Coverage SC SCH ×3 (08:50→23:08)
--- NOTE | 2018-03-04 09:13 | PCM.PYCHPN ---
Psychiatric Progress Note - Psychiatric Progress Note Patient seen today, length of contact: 25 min Problems Identified/Issues Discussed: Patient is 78 yo Male with long and debilitative history of bipolar disorder with psychosis, vs schizoaffective disorder bipolar type, multiple psychiatric admissions, including state hospitalizations, who was transferred from the medical floor for treatment of disorganization and agitation. Admission was signed by patient's POA, his Latanya Frazier. Patient has become calmer and more predictable on the psychiatric unit over the week. There were no major outbursts or agitation for 5 days and then on the 6th day (Monday03/03/18) patient required thorazine IM prn because of agitation. Apparently patient was acutely disorganized, combative and attacking staff as they were trying to change him. Thought process continues to be tangential and scattered but much more relevant than at admission. Focus is also improving in this respect. He is very pleasant during most of our encounters and smiles readily. He responds well to positive redirection and definitely seems less religiously preoccupied in general. He isn't paranoid at this time. It is getting easier to maintain a productive conversation with him and he is better at expressing his needs. OF NOTE: Code star was called at 3:36 pm on 03/02/18 because patient was found on the floor. Patient could not remember how he ended up on the floor and may have had an unwitnessed fall. His mental status is unchanged and he denies any current discomfort or pain this morning. He doesn't recall the incident when I discuss it this morning and he doesn't appear to be in any distress. As a precaution, patient was evaluated by Dr. Weiss who ordered EKG as well as back/ neck CT (patient reported some neck discomfort at the time). POA was also informed. There have been no further incidents. Diagnostic Results: r/o schizoaffective disorder bipolar type r/o bipolar disorder with psychosis r/o schizophrenia Medication Change: Yes (increased thorazine) Medical Record Reviewed: Yes Mental Status Examination - Cognitive Function Orientation: Person Memory: Impaired Attention: Poor Concentration: Poor Association: Loose Fund of Knowledge: Poor - Mood Mood: Other (labile but improving. He denies depression) - Affect Affect: Constricted, Flat, Other (labile) - Speech Speech: Loud - Formal Thought Process Formal Thought Process: Delusions, Paranoia, Loosening of associations ( Improving focus over the week) - Suicidal Ideation Suicidal Ideation: No - Homicidal Ideation Homicidal Ideation: No Goal/Treatment Plan - Goal/Treatment Plan Progress Toward Problem(s) and Goals/Treatment Plan: * group, milieu and supportive tx as tolerated * Appreciate f/u by Dr. Green on 02/25/18, 02/27/18, 03/01/18 and 03/03/18~ordered PT for reconditioning on 02/25/18, no new recommendations today * Appreciate f/u by Dr. Weiss on 03/02/18 due to Code star that was called at 3:36 pm on 03/02/18 because patient was found on the floor. Patient could not remember how he ended up on the floor and may have had an unwitnessed fall. His mental status is unchanged and he denies any current discomfort or pain this morning. He doesn't recall the incident when I discuss it this morning and he doesn't appear to be in any distress. As a precaution, patient was evaluated by Dr. Weiss who ordered EKG as well as back/neck CT (patient reported some neck discomfort at the time). POA was also informed. 03/02/[address] No acute intracranial abnormalities 03/02/[address] No acute findings * c/w 1:1, patient is a fall risk. * thorazine 25/25/50 increased to 25/50/50 on 03/04/18 for agitation. * Risperdal was increased to 1 mg AM, 2 mg PM and 2 mg HS for disorganization, agitation and paranoia on 02/25/18 * Added very small dose of ativan 0.25 mg AMHS for patient's anxiety, mood control and for EPS prophylaxis on 02/25/18. Conservative with benzo because of related increased confusion and disinhibition in elderly associated with high doses of these medications. * depakote ER 750 mg po bid for impulse and mood control: 02/19/18 12:40 Valproic Acid 61 * Sonata 5 mg po HS prn: insomnia * Vitals reviewed and noted below: Selected Entries 03/03/18 03/03/18 03/03/18 07:00 09:23 15:00 Temperature 98.5 F Pulse Rate 63 84 Respiratory 20 20 Rate Blood Pressure 116/64 116/96 H 118/91 H * New lab results noted below: Laboratory Results - last 24 hr 02/26/18 02/26/18 07:00 07:00 WBC 5.4 RBC 4.10 Hgb 12.7 L Hct 36.9 L MCV 90.0 MCH 31.0 MCHC 34.4 RDW 12.4 Plt Count 100 L MPV 10.1 Sodium 142 Potassium 4.0 Chloride 103 Carbon Dioxide 31 Anion Gap 12 BUN 23 H Creatinine 0.9 Est GFR ( Amer) > 60 Est GFR (Non-Af Amer) > 60 Random Glucose 99 Calcium 8.7 Total Bilirubin 0.7 AST 21 ALT 19 Alkaline Phosphatase 45 Total Protein 5.5 L Albumin 2.6 L Globulin 2.9 Albumin/Globulin Ratio 0.9 L
--- NOTE | 2018-03-04 16:18 | PN ---
Copied To: Karlie Green MD Attending MD: Karlie Green MD DATE: 03/04/2018 SUBJECTIVE: This 77-year-old male remains hospitalized. He has a one-to-one sitter because of a recent fall, confusional mental status, and marked deconditioning. PHYSICAL EXAMINATION: GENERAL: He is alert, tolerating diet and medication, and cooperating with nursing staff. Denying fever, chills, chest pain, or shortness of breath. VITAL SIGNS: Temperature is 98.8, respirations 18, pulse 87, and blood pressure 116/89. Physical exam remains unchanged. LABORATORY DATA: Random blood sugar 110 with troponin less than 0.01. IMPRESSION: A deconditioned 77-year-old male awaiting subacute rehab. PLAN: Continue current medications and stay in the psychiatric hinkle with one-to-one sitter and heart-healthy diabetic diet and medications as outlined. Karlie Green MD MTDReyes
[2018-03-05] MEDS: Levothyroxine 75 MCG TAB PO SCH (05:58)
[2018-03-05] MEDS: Pantoprazole 40 mg EC Tab PO SCH (05:58)
[2018-03-05] MEDS: Divalproex 250 mg ER (ONCE DAILY formulation) PO SCH ×2 (08:20→17:52)
[2018-03-05] MEDS: Multivitamin With Minerals Tab PO SCH (08:22)
[2018-03-05] MEDS: Insulin Reg-LOW-Coverage SC SCH ×4 (08:30→22:15)
--- NOTE | 2018-03-05 08:37 | PN ---
Copied To: Karlie Green MD Attending MD: Karlie Green MD DATE: 03/03/2018 SUBJECTIVE: This 77-year-old male was examined and case was reviewed with nurse, Winston Cohen, registered nurse. The patient was out of bed to chair, now with a one-to-one sitter after a fall last evening, for which he underwent head CT with unremarkable findings. At present, he is alert, communicative. Denying any fever, chills, chest pain, shortness of breath, or physical complaints. PHYSICAL EXAMINATION: VITAL SIGNS: Temperature 98.5, respirations 20, pulse 63, and blood pressure 116/64 with pulse ox not recorded on room air. Physical exam stable. LABORATORY DATA: White count 5400, hemoglobin 12.7, hematocrit 36.9, and platelets 100,000. Random blood sugar 155. Troponin less than 0.01. IMPRESSION: A 77-year-old male awaiting transfer to subacute rehab for reconditioning and gait training secondary to marked deconditioning with comorbidities of chronic bipolar psychosis, anxiety neurosis, type 2 diabetes mellitus, stable atherosclerotic heart disease, peptic ulcer disease with gastroesophageal reflux disease, chronic hypothyroidism, insomnia, degenerative arthritis, and deconditioning. He will continue on Ativan, Colace, Depakote, Ecotrin, insulin, Januvia, Lasix, Protonix, Risperdal, Sonata, Synthroid, multivitamin, Thorazine, Tylenol, and Zestril. As discussed with nurseSherrie registered nurse. He continues with a one-to-one sitter, he remains on moderate fall risk prevention protocol, heart-healthy soft bland diabetic diet, and is scheduled for physical therapy for reconditioning and gait training. Once cleared by Psychiatry, he will be readied for transfer to subacute rehab and all of the above was discussed with the patient, Nursing. All questions were answered. Karlie Green MD MTD
--- NOTE | 2018-03-05 15:14 | PCM.PYCHPN ---
Psychiatric Progress Note - Psychiatric Progress Note Patient seen today, length of contact: 30min Patient Chief Complaint: "I feel much better, thank you" Problems Identified/Issues Discussed: Suicide/ homicide prevention, past psychiatric h/o, current psychiatric symptoms , medical problems, risk/benefits and alternatives of medications, medications compliance, coping strategies, substance abuse h/o, relapse prevention, importance of follow up with psychiatrist and therapist, discharge plan. Medical Problems: please see medical team note for more detailed info Diagnostic Results: 02/26/18 07:00 02/26/18 07:00 Lab Results 03/03/18 17:07: POC Glucose (mg/dL) 112 H 03/03/18 11:29: POC Glucose (mg/dL) 194 H 03/03/18 07:32: POC Glucose (mg/dL) 96 03/02/18 20:55: POC Glucose (mg/dL) 136 H 03/02/18 16:32: Troponin I < 0.01 03/02/18 15:42: POC Glucose (mg/dL) 110 03/02/18 11:28: POC Glucose (mg/dL) 155 H 03/02/18 07:29: POC Glucose (mg/dL) 87 03/01/18 21:20: POC Glucose (mg/dL) 166 H 03/01/18 16:14: POC Glucose (mg/dL) 168 H 03/01/18 11:34: POC Glucose (mg/dL) 141 H 03/01/18 07:27: POC Glucose (mg/dL) 101 02/28/18 16:24: POC Glucose (mg/dL) 131 H 02/28/18 11:15: POC Glucose (mg/dL) 127 H 02/28/18 07:13: POC Glucose (mg/dL) 119 H 02/27/18 21:18: POC Glucose (mg/dL) 157 H 02/27/18 16:12: POC Glucose (mg/dL) 130 H 02/27/18 11:27: POC Glucose (mg/dL) 199 H 02/27/18 07:19: POC Glucose (mg/dL) 111 H 02/26/18 21:04: POC Glucose (mg/dL) 131 H 02/26/18 16:15: POC Glucose (mg/dL) 183 H 02/26/18 12:01: POC Glucose (mg/dL) 204 H 02/26/18 07:56: POC Glucose (mg/dL) 102 02/26/18 07:00: Sodium 142, Potassium 4.0, Chloride 103, Carbon Dioxide 31, Anion Gap 12, BUN 23 H, Creatinine 0.9, Est GFR ( Amer) > 60, Est GFR ( Non-Af Amer) > 60, Random Glucose 99, Calcium 8.7, Total Bilirubin 0.7, AST 21, ALT 19, Alkaline Phosphatase 45, Total Protein 5.5 L, Albumin 2.6 L, Globulin 2.9, Albumin/Globulin Ratio 0.9 L 02/26/18 07:00: WBC 5.4, RBC 4.10, Hgb 12.7 L, Hct 36.9 L, MCV 90.0, MCH 31.0, MCHC 34.4, RDW 12.4, Plt Count 100 L, MPV 10.1 02/25/18 21:27: POC Glucose (mg/dL) 129 H 02/25/18 16:11: POC Glucose (mg/dL) 155 H 02/25/18 11:42: POC Glucose (mg/dL) 153 H 02/25/18 07:30: POC Glucose (mg/dL) 137 H 02/24/18 22:09: POC Glucose (mg/dL) 119 H 02/24/18 16:27: POC Glucose (mg/dL) 145 H 02/24/18 11:15: POC Glucose (mg/dL) 179 H 02/24/18 07:34: POC Glucose (mg/dL) 100 02/23/18 21:20: POC Glucose (mg/dL) 153 H 02/23/18 16:25: POC Glucose (mg/dL) 123 H 02/23/18 07:43: POC Glucose (mg/dL) 100 02/22/18 21:12: POC Glucose (mg/dL) 119 H Vital Signs Temp Pulse Pulse Resp BP 03/05/18 08:20 112/66 03/05/18 08:19 72 112/66 03/05/18 06:55 98.6 F 62 20 109/60 03/04/18 16:00 79 113/76 03/04/18 08:38 116/89 03/04/18 07:00 98.8 F 87 18 116/68 03/03/18 15:00 84 20 118/91 H 03/03/18 09:23 116/96 H 03/03/18 07:00 98.5 F 63 20 116/64 03/03/18 06:58 98.5 F 63 20 116/64 03/02/18 16:24 97.8 F 85 16 136/78 03/02/18 08:24 126/76 03/02/18 06:53 97.5 F L 65 20 126/76 03/01/18 16:30 63 126/97 H 03/01/18 08:35 132/78 03/01/18 08:34 69 132/78 03/01/18 07:14 97.5 F L 69 20 132/78 02/28/18 16:00 69 126/78 02/28/18 08:45 68 127/74 02/28/18 07:11 98.1 F 66 20 127/74 02/27/18 16:00 84 125/76 02/27/18 09:10 73 118/73 02/27/18 09:09 118/73 02/27/18 07:00 97.5 F L 73 18 118/73 02/26/18 16:30 90 99/57 L 02/26/18 09:22 86 127/71 02/26/18 09:00 127/71 02/26/18 07:00 97.5 F L 86 20 122/71 02/25/18 15:00 82 18 98/61 L 02/25/18 08:44 77 117/81 02/25/18 08:43 117/81 02/25/18 07:17 97.2 F L 77 20 117/81 02/24/18 16:30 89 121/80 02/24/18 10:21 147/85 02/24/18 10:20 73 147/85 02/24/18 06:34 98.6 F 73 20 147/88 02/23/18 21:00 86 124/80 02/23/18 09:00 77 139/84 02/23/18 07:00 97.7 F 77 20 139/84 02/23/18 06:56 97.6 F 77 20 139/84 02/22/18 17:53 75 18 DSM 5 Symptoms Update: shortly pt is 78 yo Male with long and debilitative history of bipolar disorder with psychosis, vs schizoaffective disorder bipolar type, multiple psychiatric admissions, including state hospitalizations, who was transferred from the medical floor for treatment of disorganization and agitation. Admission was signed by patient's POA, his Latanya Frazier. as per 's report: oatient has become calmer and more predictable on the psychiatric unit over the week. There were no major outbursts or agitation for 5 days and then on the 6th day (Monday03/03/18) patient required thorazine IM prn because of agitation. Apparently patient was acutely disorganized, combative and attacking staff as they were trying to change him. pt was seen at the dinning area, pt was calm, cooperative, socially appropriate , affect was bright. pt does not remember this functional tester typewriters, but reported that I look familiar. pt said "I feel better, thank you". pt did not curse, was polite (of note at the time of admission pt exhibited disinhibited behavior, was cursing, was making sexual comments" At the same time pt still has thought process to be tangential and scattered but much more relevant than at admission. Focus is also improving in this respect. He is very pleasant during most of our encounters and smiles readily. He responds well to positive redirection and definitely seems less religiously preoccupied in general. no acute psychosis. OF NOTE: pt fell on 3:36 pm on 03/02/18 because patient was found on the floor. PT evaluated pt today. patient tolerates medications well, no side effects observed or reported, aims 0 , no EPS. Diagnostic Results: r/o schizoaffective disorder bipolar type r/o bipolar disorder with psychosis r/o schizophrenia Medication Change: No Medical Record Reviewed: Yes Consults ordered or reviewed: patient is seen by medical team on daily basis Mental Status Examination - Cognitive Function Orientation: Person Memory: Impaired Attention: Poor Concentration: Poor Association: Loose Fund of Knowledge: Poor - Mood Mood: Other (labile but improving. He denies depression) - Affect Affect: Constricted (but more reactive) - Speech Speech: Loud - Formal Thought Process Formal Thought Process: Delusions, Paranoia, Loosening of associations ( Improving focus over the week) - Suicidal Ideation Suicidal Ideation: No - Homicidal Ideation Homicidal Ideation: No Goal/Treatment Plan - Goal/Treatment Plan Need for Continued Stay: Remain at risks for inpatient hospitalization, Severe depression anxiety, Discharge may exacerbated symptoms, Severe functional impairment Progress Toward Problem(s) and Goals/Treatment Plan: milieu/structure/supportive therapy family involved, POA signed consent medical consult appreciated c/w 1:1, patient is a fall risk. thorazine 25/25/50 increased to 25/50/50 on 03/04/18 for agitation. Risperdal was increased to 1 mg AM, 2 mg PM and 2 mg HS for disorganization, agitation and paranoia on 02/25/18 Added very small dose of ativan 0.25 mg AMHS for patient's anxiety, mood control and for EPS prophylaxis on 02/25/18. Conservative with benzo because of related increased confusion and disinhibition in elderly associated with high doses of these medications. depakote ER 750 mg po bid for impulse and mood control: 02/19/18 12:40 Valproic Acid 61 Sonata 5 mg po HS prn: insomnia Will monitor closely Pt was educated about risk/benefits and alternatives of medications, coping strategies (safety plan, suicide prevention), relapse prevention, importance of follow up with psychiatrist and therapist, stay away from drugs/alcohol/smoking for now pt will continue on 1:1 observation will check depakote level 03/06/18 Estimated Date of D/C: 03/07/18
--- NOTE | 2018-03-05 20:50 | PN ---
Copied To: Karlie Green MD Attending MD: Karlie Green MD DATE: 03/05/2018 SUBJECTIVE: This 77-year-old male remains hospitalized, awaiting subacute rehab acceptance and placement. He is at high risk for falls and has a one-to-one sitter to ensure the patient's safety as indicated. PHYSICAL EXAMINATION: VITAL SIGNS: At present, vital signs show temperature 98.6, respirations 20, pulse 62 and blood pressure 109/60. Physical exam remains stable. LABORATORY DATA: White count 5400, hemoglobin 12.7, hematocrit 36.9, platelets 100,000. Random blood sugar was 140. IMPRESSION: A 77-year-old male with multiple medical problems including deconditioning, chronic paranoid schizophrenia and bipolar psychosis, confusional state, type 2 diabetes mellitus, hypertension, peptic ulcer disease with gastroesophageal reflux disease, chronic insomnia, hypothyroidism, degenerative arthritis and chronic hypertension. PLAN: We will await subacute rehab placement while being hospitalized and monitor closely in the psychiatric hinkle while continuing Ativan, Colace, Depakote, Ecotrin, Humulin R low-dose insulin coverage, Januvia, Lasix, Protonix, Risperdal, Sonata, Synthroid, multivitamin, Thorazine, Tylenol p.r.n. and Zestril. He is scheduled for a valproic acid level and I will also add a repeat basic metabolic panel and CBC. He continues on a heart-healthy diet, moderate fall risk for fall. Moderate fall risk fall prevention precautions and is receiving physical therapy for reconditioning and gait training and once the patient is stabilized and a subacute rehab center is identified, he will be ready for discharge. Karlie Green MD : 03/05/2018 19:43:49 MTDD
[2018-03-06] MEDS: Levothyroxine 75 MCG TAB PO SCH (06:27)
[2018-03-06] MEDS: Pantoprazole 40 mg EC Tab PO SCH (06:27)
[2018-03-06 07:13] LABS: HEMOGLOBIN 12.5 g/dL (14.0-18.0); MEAN CELL VOLUME 90.2 fl (80.0-105.0); MEAN CORPUSCULAR HEMOGLOBIN 31.5 pg (25.0-35.0); MEAN CORPUSCULAR HGB CONC 34.9 g/dl (31.0-37.0); MEAN PLATELET VOLUME 9.5 fl (7.0-11.0); RBC 3.97 10^6/uL (3.5-6.1); RED CELL DISTRIBUTION WIDTH 12.3 % (11.5-14.5); WHITE BLOOD COUNT 5.3 10^3/ul (4.5-11.0)
[2018-03-06 07:22] LABS: BLOOD UREA NITROGEN 27 mg/dL (7-21); CALCIUM 8.6 mg/dL (8.4-10.5); GFR NON-AFRICAN AMERICAN > 60
[2018-03-06] MEDS: Insulin Reg-LOW-Coverage SC SCH ×4 (09:58→21:18)
[2018-03-06] MEDS: Multivitamin With Minerals Tab PO SCH (10:07)
[2018-03-06] MEDS: Divalproex 250 mg ER (ONCE DAILY formulation) PO SCH ×2 (10:10→17:11)
--- NOTE | 2018-03-06 15:45 | PCM.PYCHPN ---
Psychiatric Progress Note - Psychiatric Progress Note Patient seen today, length of contact: 30min Patient Chief Complaint: "I feel much better, thank you" Problems Identified/Issues Discussed: Suicide/ homicide prevention, past psychiatric h/o, current psychiatric symptoms , medical problems, risk/benefits and alternatives of medications, medications compliance, coping strategies, substance abuse h/o, relapse prevention, importance of follow up with psychiatrist and therapist, discharge plan. Medical Problems: please see medical team note for more detailed info Diagnostic Results: 02/26/18 07:00 02/26/18 07:00 Lab Results 03/03/18 17:07: POC Glucose (mg/dL) 112 H 03/03/18 11:29: POC Glucose (mg/dL) 194 H 03/03/18 07:32: POC Glucose (mg/dL) 96 03/02/18 20:55: POC Glucose (mg/dL) 136 H 03/02/18 16:32: Troponin I < 0.01 03/02/18 15:42: POC Glucose (mg/dL) 110 03/02/18 11:28: POC Glucose (mg/dL) 155 H 03/02/18 07:29: POC Glucose (mg/dL) 87 03/01/18 21:20: POC Glucose (mg/dL) 166 H 03/01/18 16:14: POC Glucose (mg/dL) 168 H 03/01/18 11:34: POC Glucose (mg/dL) 141 H 03/01/18 07:27: POC Glucose (mg/dL) 101 02/28/18 16:24: POC Glucose (mg/dL) 131 H 02/28/18 11:15: POC Glucose (mg/dL) 127 H 02/28/18 07:13: POC Glucose (mg/dL) 119 H 02/27/18 21:18: POC Glucose (mg/dL) 157 H 02/27/18 16:12: POC Glucose (mg/dL) 130 H 02/27/18 11:27: POC Glucose (mg/dL) 199 H 02/27/18 07:19: POC Glucose (mg/dL) 111 H 02/26/18 21:04: POC Glucose (mg/dL) 131 H 02/26/18 16:15: POC Glucose (mg/dL) 183 H 02/26/18 12:01: POC Glucose (mg/dL) 204 H 02/26/18 07:56: POC Glucose (mg/dL) 102 02/26/18 07:00: Sodium 142, Potassium 4.0, Chloride 103, Carbon Dioxide 31, Anion Gap 12, BUN 23 H, Creatinine 0.9, Est GFR ( Amer) > 60, Est GFR ( Non-Af Amer) > 60, Random Glucose 99, Calcium 8.7, Total Bilirubin 0.7, AST 21, ALT 19, Alkaline Phosphatase 45, Total Protein 5.5 L, Albumin 2.6 L, Globulin 2.9, Albumin/Globulin Ratio 0.9 L 02/26/18 07:00: WBC 5.4, RBC 4.10, Hgb 12.7 L, Hct 36.9 L, MCV 90.0, MCH 31.0, MCHC 34.4, RDW 12.4, Plt Count 100 L, MPV 10.1 02/25/18 21:27: POC Glucose (mg/dL) 129 H 02/25/18 16:11: POC Glucose (mg/dL) 155 H 02/25/18 11:42: POC Glucose (mg/dL) 153 H 02/25/18 07:30: POC Glucose (mg/dL) 137 H 02/24/18 22:09: POC Glucose (mg/dL) 119 H 02/24/18 16:27: POC Glucose (mg/dL) 145 H 02/24/18 11:15: POC Glucose (mg/dL) 179 H 02/24/18 07:34: POC Glucose (mg/dL) 100 02/23/18 21:20: POC Glucose (mg/dL) 153 H 02/23/18 16:25: POC Glucose (mg/dL) 123 H 02/23/18 07:43: POC Glucose (mg/dL) 100 02/22/18 21:12: POC Glucose (mg/dL) 119 H Vital Signs Temp Pulse Pulse Resp BP 03/05/18 08:20 112/66 03/05/18 08:19 72 112/66 03/05/18 06:55 98.6 F 62 20 109/60 03/04/18 16:00 79 113/76 03/04/18 08:38 116/89 03/04/18 07:00 98.8 F 87 18 116/68 03/03/18 15:00 84 20 118/91 H 03/03/18 09:23 116/96 H 03/03/18 07:00 98.5 F 63 20 116/64 03/03/18 06:58 98.5 F 63 20 116/64 03/02/18 16:24 97.8 F 85 16 136/78 03/02/18 08:24 126/76 03/02/18 06:53 97.5 F L 65 20 126/76 03/01/18 16:30 63 126/97 H 03/01/18 08:35 132/78 03/01/18 08:34 69 132/78 03/01/18 07:14 97.5 F L 69 20 132/78 02/28/18 16:00 69 126/78 02/28/18 08:45 68 127/74 02/28/18 07:11 98.1 F 66 20 127/74 02/27/18 16:00 84 125/76 02/27/18 09:10 73 118/73 02/27/18 09:09 118/73 02/27/18 07:00 97.5 F L 73 18 118/73 02/26/18 16:30 90 99/57 L 02/26/18 09:22 86 127/71 02/26/18 09:00 127/71 02/26/18 07:00 97.5 F L 86 20 122/71 02/25/18 15:00 82 18 98/61 L 02/25/18 08:44 77 117/81 02/25/18 08:43 117/81 02/25/18 07:17 97.2 F L 77 20 117/81 02/24/18 16:30 89 121/80 02/24/18 10:21 147/85 02/24/18 10:20 73 147/85 02/24/18 06:34 98.6 F 73 20 147/88 02/23/18 21:00 86 124/80 02/23/18 09:00 77 139/84 02/23/18 07:00 97.7 F 77 20 139/84 02/23/18 06:56 97.6 F 77 20 139/84 02/22/18 17:53 75 18 DSM 5 Symptoms Update: shortly pt is 78 yo Male with long and debilitative history of bipolar disorder with psychosis, vs schizoaffective disorder bipolar type, multiple psychiatric admissions, including state hospitalizations, who was transferred from the medical floor for treatment of disorganization and agitation. Admission was signed by patient's POA, his Latanya Frazier. patient has become calmer and more predictable on the psychiatric unit over the the last week. There were no major outbursts or agitation. Pt recommended ASHA, 9 ASHA rejected pt. pt is seen by PT daily to improve strength. pt was seen at the dinning area, pt was calm, cooperative, socially appropriate , affect was bright. pt does not remember what he had for lunch, but reported "food was delicious". pt said "I feel better, thank you". pt did not curse, was polite (of note at the time of admission pt exhibited disinhibited behavior, was cursing, was making sexual comments) Treatment course was discussed with pt's POA Latanya Frazier today, POA was appreciative. At the same time pt still has thought process to be tangential and scattered but much more relevant than at admission. Focus is also improving in this respect. He is very pleasant during most of our encounters and smiles readily. He responds well to positive redirection and definitely seems less religiously preoccupied in general. no acute psychosis. OF NOTE: pt fell on 3:36 pm on 03/02/18 because patient was found on the floor. PT evaluated pt today. patient tolerates medications well, no side effects observed or reported, aims 0 , no EPS. Diagnostic Results: r/o schizoaffective disorder bipolar type r/o bipolar disorder with psychosis r/o schizophrenia Medication Change: No Medical Record Reviewed: Yes Mental Status Examination - Cognitive Function Orientation: Person Memory: Impaired Attention: Poor Concentration: Poor Association: Loose Fund of Knowledge: Poor - Mood Mood: Other (labile but improving. He denies depression) - Affect Affect: Constricted (but more reactive) - Speech Speech: Loud - Formal Thought Process Formal Thought Process: Delusions, Paranoia, Loosening of associations ( Improving focus over the week) - Suicidal Ideation Suicidal Ideation: No - Homicidal Ideation Homicidal Ideation: No Goal/Treatment Plan - Goal/Treatment Plan Need for Continued Stay: Remain at risks for inpatient hospitalization, Severe depression anxiety, Discharge may exacerbated symptoms, Severe functional impairment Progress Toward Problem(s) and Goals/Treatment Plan: milieu/structure/supportive therapy family involved, POA signed consent medical consult appreciated c/w 1:1, patient is a fall risk. thorazine 25/25/50 increased to 25/50/50 on 03/04/18 for agitation. Risperdal was increased to 1 mg AM, 2 mg PM and 2 mg HS for disorganization, agitation and paranoia on 02/25/18 Added very small dose of ativan 0.25 mg AMHS for patient's anxiety, mood control and for EPS prophylaxis on 02/25/18. Conservative with benzo because of related increased confusion and disinhibition in elderly associated with high doses of these medications. depakote ER 750 mg po bid for impulse and mood control: 02/19/18 12:40 Valproic Acid 61 Sonata 5 mg po HS prn: insomnia Will monitor closely Pt was educated about risk/benefits and alternatives of medications, coping strategies (safety plan, suicide prevention), relapse prevention, importance of follow up with psychiatrist and therapist, stay away from drugs/alcohol/smoking for now pt will continue on 1:1 observation will check depakote level 03/06/18 Estimated Date of D/C: 03/07/18
[2018-03-07] MEDS: Levothyroxine 75 MCG TAB PO SCH (06:19)
[2018-03-07] MEDS: Pantoprazole 40 mg EC Tab PO SCH (06:19)
--- NOTE | 2018-03-07 08:18 | PN ---
Copied To: Karlie Green MD Attending MD: Karlie Green MD DATE: 03/06/2018 SUBJECTIVE: This 77-year-old male remains hospitalized, awaiting subacute rehab placement for marked deconditioning and instability with ambulation and this patient remains at high risk of fall. When I examined the patient on the Psychiatric Unit, he had a 1:1 sitter present because of issues with behavioral disturbance, agitation and aggression as well as risk for fall. This case was reviewed with his nurse, Belén Black and An Martinez, psychosocial rehabilitation counselor. The patient remains calm at present. He is denying any fever, chills, chest pain or shortness of breath. PHYSICAL EXAMINATION: VITAL SIGNS: Temperature was 97.7, respirations 20, pulse 76 and blood pressure 126/67. His physical exam was unchanged. LABORATORY DATA: His labs show a white count of 5300, hemoglobin 12.5, hematocrit 35.8, platelets 114,000. Sodium 140, K 4, chloride 103, bicarb 30, BUN 27, creatinine 0.9 with a random blood sugar of 158 and calcium level of 8.6. IMPRESSION: A 77-year-old male with stable atherosclerotic heart disease, history of permanent pacemaker placement with marked deconditioning and comorbidities of paranoid schizophrenia, bipolar psychosis, type 2 diabetes mellitus, peptic ulcer disease with gastroesophageal reflux disease, insomnia, hypothyroidism, degenerative arthritis and anemia of chronic disease. PLAN: The plan at present is to continue current medications which were reviewed and include Ativan, Colace, Depakote, Ecotrin, Humulin R low-dose insulin coverage, Januvia, Lasix, Protonix, Risperdal, Sonata, Synthroid, multivitamin, Thorazine and Zestril. I have medically cleared this patient for discharge to subacute rehab when bed available. I have completed the necessary social service forms for this discharge. He remains at moderate fall risk prevention protocol and continues on heart-healthy diabetic diet and is ordered to have physical therapy for reconditioning and gait training. All of the above was reviewed with nursing, psychosocial rehabilitation counselor and lead case manager. All questions were answered. Karlie Green MD [facility] # [id number] BALA
[2018-03-07] MEDS: Divalproex 250 mg ER (ONCE DAILY formulation) PO SCH ×2 (08:30→16:54)
[2018-03-07] MEDS: Insulin Reg-LOW-Coverage SC SCH ×4 (08:31→23:11)
[2018-03-07] MEDS: Multivitamin With Minerals Tab PO SCH (12:24)
--- NOTE | 2018-03-07 13:49 | PN ---
Copied To: Karlie rGeen MD Attending MD: Karlie Green MD DATE: 03/07/2018 SUBJECTIVE: This 77-year-old male is awaiting approval for transfer to subacute rehab. He remains hospitalized with multiple comorbidities and was admitted, status post inability to ambulate secondary to bilateral lower extremity weakness. He was found to have exacerbation of his chronic paranoid psychosis and bipolar psychological disorder and is now in the psychiatric hinkle under the direction of Dr. Kaci Richter. At present, he is denying fever, chills, chest pain or shortness of breath and feeling better on adjusted psychotropic medication. Today, temperature is 97.6, respirations 17, pulse 68 and blood pressure 118/65. Physical exam is stable. Current labs show white count 5300, hemoglobin 12.5, hematocrit 35.8, platelets 114,000. Random sugar 118 with a sodium of 140, K 4, chloride 103, bicarb 30, BUN 27, creatinine 0.9 and calcium level of 8.6. Most recent valproic acid level was 37, therapeutic being 50 to 100. IMPRESSION: A 77-year-old male with exacerbation of bipolar and paranoid psychoses with comorbidities of anxiety neurosis, type 2 diabetes mellitus, chronic hypertension, stable, permanent pacemaker placement, peptic ulcer disease with gastroesophageal reflux disease, chronic anxiety, insomnia, hypothyroidism, degenerative arthritis and hypertension. PLAN: At present is to continue medication including Ativan, Colace, Depakote, which has been recently increased to 750 mg p.o. b.i.d. He continues on Ecotrin, Humulin R low-dose insulin coverage before meals and at bedtime, Januvia, Lasix, Protonix, Risperdal, Sonata, Synthroid, therapeutic multivitamin, Thorazine, Tylenol and Zestril. Social Service is diligently trying to have this patient placed in subacute rehab. He will continue on moderate fall risk protocol, heart-healthy diabetic diet with physical therapy ordered for ambulation and gait training. Once the patient is accepted to subacute rehab, he is medically cleared for discharge. This was reviewed with the patient, Nursing and Social Service. All questions were answered. Karlie Green MD [facility] # [id number] MTDReyes
--- NOTE | 2018-03-07 16:21 | PCM.PYCHPN ---
Psychiatric Progress Note - Psychiatric Progress Note Patient seen today, length of contact: 30min Patient Chief Complaint: "I feel much better, thank you" Problems Identified/Issues Discussed: Suicide/ homicide prevention, past psychiatric h/o, current psychiatric symptoms , medical problems, risk/benefits and alternatives of medications, medications compliance, coping strategies, substance abuse h/o, relapse prevention, importance of follow up with psychiatrist and therapist, discharge plan. Medical Problems: please see medical team note for more detailed info Diagnostic Results: 02/26/18 07:00 02/26/18 07:00 Lab Results 03/03/18 17:07: POC Glucose (mg/dL) 112 H 03/03/18 11:29: POC Glucose (mg/dL) 194 H 03/03/18 07:32: POC Glucose (mg/dL) 96 03/02/18 20:55: POC Glucose (mg/dL) 136 H 03/02/18 16:32: Troponin I < 0.01 03/02/18 15:42: POC Glucose (mg/dL) 110 03/02/18 11:28: POC Glucose (mg/dL) 155 H 03/02/18 07:29: POC Glucose (mg/dL) 87 03/01/18 21:20: POC Glucose (mg/dL) 166 H 03/01/18 16:14: POC Glucose (mg/dL) 168 H 03/01/18 11:34: POC Glucose (mg/dL) 141 H 03/01/18 07:27: POC Glucose (mg/dL) 101 02/28/18 16:24: POC Glucose (mg/dL) 131 H 02/28/18 11:15: POC Glucose (mg/dL) 127 H 02/28/18 07:13: POC Glucose (mg/dL) 119 H 02/27/18 21:18: POC Glucose (mg/dL) 157 H 02/27/18 16:12: POC Glucose (mg/dL) 130 H 02/27/18 11:27: POC Glucose (mg/dL) 199 H 02/27/18 07:19: POC Glucose (mg/dL) 111 H 02/26/18 21:04: POC Glucose (mg/dL) 131 H 02/26/18 16:15: POC Glucose (mg/dL) 183 H 02/26/18 12:01: POC Glucose (mg/dL) 204 H 02/26/18 07:56: POC Glucose (mg/dL) 102 02/26/18 07:00: Sodium 142, Potassium 4.0, Chloride 103, Carbon Dioxide 31, Anion Gap 12, BUN 23 H, Creatinine 0.9, Est GFR ( Amer) > 60, Est GFR ( Non-Af Amer) > 60, Random Glucose 99, Calcium 8.7, Total Bilirubin 0.7, AST 21, ALT 19, Alkaline Phosphatase 45, Total Protein 5.5 L, Albumin 2.6 L, Globulin 2.9, Albumin/Globulin Ratio 0.9 L 02/26/18 07:00: WBC 5.4, RBC 4.10, Hgb 12.7 L, Hct 36.9 L, MCV 90.0, MCH 31.0, MCHC 34.4, RDW 12.4, Plt Count 100 L, MPV 10.1 02/25/18 21:27: POC Glucose (mg/dL) 129 H 02/25/18 16:11: POC Glucose (mg/dL) 155 H 02/25/18 11:42: POC Glucose (mg/dL) 153 H 02/25/18 07:30: POC Glucose (mg/dL) 137 H 02/24/18 22:09: POC Glucose (mg/dL) 119 H 02/24/18 16:27: POC Glucose (mg/dL) 145 H 02/24/18 11:15: POC Glucose (mg/dL) 179 H 02/24/18 07:34: POC Glucose (mg/dL) 100 02/23/18 21:20: POC Glucose (mg/dL) 153 H 02/23/18 16:25: POC Glucose (mg/dL) 123 H 02/23/18 07:43: POC Glucose (mg/dL) 100 02/22/18 21:12: POC Glucose (mg/dL) 119 H Vital Signs Temp Pulse Pulse Resp BP 03/05/18 08:20 112/66 03/05/18 08:19 72 112/66 03/05/18 06:55 98.6 F 62 20 109/60 03/04/18 16:00 79 113/76 03/04/18 08:38 116/89 03/04/18 07:00 98.8 F 87 18 116/68 03/03/18 15:00 84 20 118/91 H 03/03/18 09:23 116/96 H 03/03/18 07:00 98.5 F 63 20 116/64 03/03/18 06:58 98.5 F 63 20 116/64 03/02/18 16:24 97.8 F 85 16 136/78 03/02/18 08:24 126/76 03/02/18 06:53 97.5 F L 65 20 126/76 03/01/18 16:30 63 126/97 H 03/01/18 08:35 132/78 03/01/18 08:34 69 132/78 03/01/18 07:14 97.5 F L 69 20 132/78 02/28/18 16:00 69 126/78 02/28/18 08:45 68 127/74 02/28/18 07:11 98.1 F 66 20 127/74 02/27/18 16:00 84 125/76 02/27/18 09:10 73 118/73 02/27/18 09:09 118/73 02/27/18 07:00 97.5 F L 73 18 118/73 02/26/18 16:30 90 99/57 L 02/26/18 09:22 86 127/71 02/26/18 09:00 127/71 02/26/18 07:00 97.5 F L 86 20 122/71 02/25/18 15:00 82 18 98/61 L 02/25/18 08:44 77 117/81 02/25/18 08:43 117/81 02/25/18 07:17 97.2 F L 77 20 117/81 02/24/18 16:30 89 121/80 02/24/18 10:21 147/85 02/24/18 10:20 73 147/85 02/24/18 06:34 98.6 F 73 20 147/88 02/23/18 21:00 86 124/80 02/23/18 09:00 77 139/84 02/23/18 07:00 97.7 F 77 20 139/84 02/23/18 06:56 97.6 F 77 20 139/84 02/22/18 17:53 75 18 DSM 5 Symptoms Update: shortly pt is 78 yo Male with long and debilitative history of bipolar disorder with psychosis, vs schizoaffective disorder bipolar type, multiple psychiatric admissions, including state hospitalizations, who was transferred from the medical floor for treatment of disorganization and agitation. Admission was signed by patient's POA, his Latanya Frazier. patient has become calmer and more predictable on the psychiatric unit over the the last week. There were no major outbursts or agitation. Pt recommended ASHA, one potential ASHA acceptance. pt was seen at the dinning area, pt was calm, cooperative, socially appropriate , affect was bright. pt does not remember what he had for lunch, but reported "food was delicious". pt said "I feel better, thank you". pt did not curse, was polite (of note at the time of admission pt exhibited disinhibited behavior, was cursing, was making sexual comments) Treatment course was discussed with pt's POA Latanya Frazier 03/06/18, POA was appreciative. At the same time pt still has thought process to be tangential and scattered but much more relevant than at admission. Focus is also improving in this respect. He is very pleasant during most of our encounters and smiles readily. He responds well to positive redirection and definitely seems less religiously preoccupied in general. no acute psychosis. OF NOTE: pt fell on 3:36 pm on 03/02/18 because patient was found on the floor. PT evaluated pt today. patient tolerates medications well, no side effects observed or reported, aims 0 , no EPS. Diagnostic Results: r/o schizoaffective disorder bipolar type r/o bipolar disorder with psychosis r/o schizophrenia Medication Change: No Medical Record Reviewed: Yes Mental Status Examination - Cognitive Function Orientation: Person Memory: Impaired Attention: Poor Concentration: Poor Association: Loose Fund of Knowledge: Poor - Mood Mood: Other (labile but improving. He denies depression) - Affect Affect: Constricted (but more reactive) - Speech Speech: Loud - Formal Thought Process Formal Thought Process: Delusions, Paranoia, Loosening of associations ( Improving focus over the week) - Suicidal Ideation Suicidal Ideation: No - Homicidal Ideation Homicidal Ideation: No Goal/Treatment Plan - Goal/Treatment Plan Need for Continued Stay: Remain at risks for inpatient hospitalization, Severe depression anxiety, Discharge may exacerbated symptoms, Severe functional impairment Progress Toward Problem(s) and Goals/Treatment Plan: milieu/structure/supportive therapy family involved, POA signed consent medical consult appreciated c/w 1:1, patient is a fall risk. thorazine 25//50 increased to 25/50/50 on 03/04/18 for agitation. Risperdal 1 mg AM, 2 mg PM and 2 mg HS for disorganization, agitation and paranoia on 02/25/18 ativan 0.25 mg AMHS for patient's anxiety, mood control and for EPS prophylaxis on 02/25/18. Conservative with benzo because of related increased confusion and disinhibition in elderly associated with high doses of these medications. depakote ER 750 mg po bid for impulse and mood control: 02/19/18 12:40 Valproic Acid 61 Sonata 5 mg po HS prn: insomnia Will monitor closely Pt was educated about risk/benefits and alternatives of medications, coping strategies (safety plan, suicide prevention), relapse prevention, importance of follow up with psychiatrist and therapist, stay away from drugs/alcohol/smoking for now pt will continue on 1:1 observation will check depakote level 03/06/18 Estimated Date of D/C: 03/08/18
[2018-03-08] MEDS: Levothyroxine 75 MCG TAB PO SCH (05:40)
[2018-03-08] MEDS: Pantoprazole 40 mg EC Tab PO SCH (05:40)
[2018-03-08 07:24] VITALS: BP 132/78; PULSE 73; RESP 20; TEMP 98.1
[2018-03-08] MEDS: Insulin Reg-LOW-Coverage SC SCH ×2 (07:30→12:19)
[2018-03-08] MEDS: Multivitamin With Minerals Tab PO SCH (10:17)
[2018-03-08] MEDS: Divalproex 250 mg ER (ONCE DAILY formulation) PO SCH (10:17)
--- NOTE | 2018-03-08 12:45 | PN ---
Copied To: Karlie Green MD Attending MD: Karlie Green MD DATE: 03/08/2018 SUBJECTIVE: This 77-year-old male remains hospitalized with multiple comorbidities including deconditioning, spinal arthritis, bipolar psychosis, paranoid psychosis, type 2 diabetes mellitus, chronic hypertension, stable atherosclerotic heart disease, permanent pacemaker placement, chronic insomnia, hypothyroidism, degenerative arthritis, hypertension and anemia of chronic disease. PHYSICAL EXAMINATION: On physical exam today, temperature 98.1, respirations 20, pulse 73, blood pressure 132/78. Physical exam remains unchanged. LABORATORY DATA: White count 5300, hemoglobin 12.5, hematocrit 35.8, platelets 114,000. Random blood sugar 113. Sodium 140, K 4, chloride 103, bicarb 30, BUN 27, creatinine 0.9, calcium 8.6. IMPRESSION: This is an 77-year-old male with multiple medical problems as outlined above, being medically treated as well as psychiatrically treated and monitored on the psychiatric hinkle while awaiting subacute rehab for reconditioning and gait training. The patient is cleared for medical discharge. According to Social Service, he will be transferred 03:00 p.m. this afternoon to the [facility] for additional physical therapy, upon which completion he will return to the [facility] in [place], [place] for his shelter care for his multiple medical comorbidities as listed above. Karlie Green MD
--- NOTE | 2018-03-08 15:24 | PCM.PYCHDC ---
Mental Status Examination - Mental Status Examination Orientation: Person, Place Memory: Impaired (as a low he meeting with you) Mood: Neutral Affect: Constricted (but reactive and mood congruent) Speech: Appropriate (ttimes patient confabulates but it seems to be chronic) Attention: Poor (but with much improvement) Concentration: Poor (bbut with much improvement) Association: Loose (baseline and with much improvement) Fund of Knowledge: WNL Formal Thought Process: Delusions (chronic), Loosening of associations (chronic) , Circumstantial (chronic) Description of patient's judgement and insight: seems to be improved but chronically impaired Psychotic Thoughts and Behaviors: patient has chronic delusions, paranoia, disorganized thoughts and behavior, but patient improved very much so, no aggression, no agitation, patient calm and corporative, no cursing, socially appropriate Suicidal Ideation: No Current Homicidal Ideation?: No Plan: adamantly denied thoughts of harming himself or others, no signs of agitation or aggression Discharge Summary - Discharge Note Reason for Hospitalization: pt was transferred from the medical floor for evaluation of disinhibited behavior, delusions, not be able to be redirected. Psychiatric History (includes Medical, Family, Personal Hx): see HPI Laboratory Data: Abnormal Lab Results 03/07/18 03/07/18 03/08/18 16:12 21:25 07:22 POC Glucose (mg/dL) 138 H 132 H 113 H 03/08/18 11:35 POC Glucose (mg/dL) 154 H Consultations:: List each consultation separately and include: 1. Reason for request. 2. Findings. 3. Follow-up Consultations: patient is seen by medical team on daily basis Summary of Hospital Course include:: 1. Description of specific treatment plan utilized for patients during their course of treatmen. 2. Summarize the time- course for resolution of acute symptoms and/or regressed behaviors. 3. Describe issues identified and worked on during hospitalization. 4. Describe medication utilized. 5. Describe medical problems identified and treated. 6. Reassessment of suicide risk Summary of Hospital Course: shortly pt is 78yo Male with long and debilitated h/o bipolar disorder with psychosis, vs schizoaffective disorder bipolar type, multiple psychiatric admissions, including state hospitalizations, see consultation for more detailed information, pt currently lives in [place] assisted living facility, initially was admitted on the medical site for evaluation of fall and AMS, psych consult was called for evaluation of AMS, agitation, aggression, pt needed to have multiple PRNs on the medical floor, discussed with pt's POA Latanya Reilly, brother as well, today discussed with pt's psychiatrist , pt requires further evaluation and stabilization, meds adjustment. pt was seen in his room, pt presented to be disorganized, was randomly answering for the questions, pt would scream "f...ck you, f...ck you all", then would smile then scream "other hospitals feed you sh...t, leave you in sh...t, cover you with sh...t", but reported he likes food in [place], pt also was fixated on the lip chopstick, was keep asking and asking for it, staff was advised to check supply and provide it to the pt. pt presented with poor personal hygiene, poor ADLs, wears diapers, as per report from the 1:1 sitter, pt ate. pt presented to be disorganized chronic delusions, disorganized thoughts and behavior. pt tolerates med well so far, no side effects observed or reported, AIMS 0, no EPS. discussed with pt's family: no h/o abuse, no h/o drug use, pt has multiple psychiatric admissions, see consult notes for more detailed info. as per family baseline pt will be quiet, pt loves singing, enjoys karaoke. as per RN at the assisted living facility, pt was disorganized, was delusional that he was touched inappropriately (it is not true), was offering sexual favors to others were not able to be redirected. discussed with pt's psychiatrist today 02/23/18, pt was on abilify , depakote, risperdal, one dose of klonopin was given and pt had AMS and almost fell. no benzos recommended, discussed option of thorazine/prolixin. Lab Results 02/23/18 07:43: POC Glucose (mg/dL) 100 02/22/18 21:12: POC Glucose (mg/dL) 119 H Vital Signs Temp Pulse Pulse Resp BP 02/23/18 09:00 77 139/84 02/23/18 06:56 97.6 F 77 20 139/84 02/22/18 17:53 75 18 patient was stabilized on the following medications: Thorazine 25 mg at the morning time 50 mg at 4 PM and 50 mg at the nighttime for mood stabilization and psychosis Depakote 750 twice a day for mood stabilization Risperdal 1 mg at the morning time 2 mg at the known and 2 mg at the nighttime Patient was on 2 antipsychotic medication Abilify and Risperdal before but this clinical writer change it to first generation of antipsychotic medication such Thorazine and Risperdal as second-generation antipsychotic, patient tolerated medications well, no side effects observed or reported, aims 0, no EPS.considering the fact that patient is having chronic psychosis, long history of mental illness patient required to continue to antipsychotic medication as of now Over the course of this hospitalization pt was attending groups, pt also had medication management, had therapeutic milieu. Overall pt improved significantly, ppatient does not have agitated or aggressive behavior, patient was not making inappropriate sexual comments, pt's affect became brighter, pt was less depressed, patient has residual psychosis and disorganized thoughts but seems to be at his baseline, denied being anxious , patient was seen by physical therapy, recommended subacute rehabilitation, patient was accepted, was transferred today, family was notified by nursing staff, family was appreciated.. At the time of the discharge pt denied been depressed, denied thoughts of harming self or others, denied been anxious, pt is not in imminent danger to self or others, will be following up with his private psychiatrist , pt needs to be f/u with psychiatrist at [facility] within 72hrs. after completion of [facility] it is the assisted living responsibility to provide pt with follow up with outpatient clinic, PMD as well as specialists ( see medical team note for more detailed information). In case pt will need to obtain results of studies pending at discharge pt was provided with contact information of Psychiatric Inpatient unit [phone] as well as Medical Record Department [phone]. pt did not required prescriptions, med list was transferred by [facility] by [facility]. Pt was educated about safety plan in case of worsening of symptoms or in case of suicidal or homicidal ideation call 911 or go to the nearest ER, also was educated to take meds as prescribed and stay away from drugs, pt verbalized understanding. - Diagnosis (1) Schizoaffective disorder Current Visit: Yes Status: Chronic Priority: High - Final Diagnosis (DSM 5) Condition upon Discharge: IMPROVED Disposition: REHAB FACILITY/REHAB UNIT Follow-up Treatment Plan: At the time of the discharge pt denied been depressed, denied thoughts of harming self or others, denied been anxious, pt is not in imminent danger to self or others, will be following up with his private psychiatrist , pt needs to be f/u with psychiatrist at [facility] within 72hrs. after completion of [facility] it is the assisted living responsibility to provide pt with follow up with outpatient clinic, PMD as well as specialists ( see medical team note for more detailed information). In case pt will need to obtain results of studies pending at discharge pt was provided with contact information of Psychiatric Inpatient unit [phone] as well as Medical Record Department [phone]. pt did not required prescriptions, med list was transferred by [facility] by [facility]. Pt was educated about safety plan in case of worsening of symptoms or in case of suicidal or homicidal ideation call 911 or go to the nearest ER, also was educated to take meds as prescribed and stay away from drugs, pt verbalized understanding. - Smoking Cessation Smoking Cessation Medication prescribed: No Reason for not providing: denied smoking - Antipsychotic Medications Pt discharged on 2 or more routine antipsychotic medications: Yes - Justification for 2 or more meds Failed 3 or more trials of Monotherapy: List medications: patient has chronic schizophrenia, patient was on 2 antipsychotic medications before, at present moment patient is on Thorazine as well as on Risperdal, as of now patient is to be continued on 2 antipsychotic medication because of severety of his symptoms. Justification other than those listed above:: not indicated at this time
== END 2018-03-08 15:45 | DRG 885 ==
LOC: PSYC 16:05
PROVIDERS: ADMIT Psychiatry & Neurology Psychiatry; ATTEND Psychiatry & Neurology Psychiatry
DX: F25.9 Schizoaffective disorder, unspecified (principal); D63.8 Anemia in other chronic diseases classified elsewhere; E03.9 Hypothyroidism, unspecified; E11.9 Type 2 diabetes mellitus without complications; F31.9 Bipolar disorder, unspecified; F41.1 Generalized anxiety disorder; F51.04 Psychophysiologic insomnia; I10 Essential (primary) hypertension; I25.10 Atherosclerotic heart disease of native coronary artery without angina pectoris; K21.9 Gastro-esophageal reflux disease without esophagitis; M46.90 Unspecified inflammatory spondylopathy, site unspecified; M19.90 Unspecified osteoarthritis, unspecified site; I25.2 Old myocardial infarction; Z79.4 Long term (current) use of insulin; Z79.899 Other long term (current) drug therapy; Z87.11 Personal history of peptic ulcer disease; Z91.81 History of falling; Z95.0 Presence of cardiac pacemaker

== ENCOUNTER 2018-10-20 14:06 | Inpatient (IN) | payer MEDICARE, OTHER ==
[2018-10-20 14:09] VITALS: BMI 24.3
--- NOTE | 2018-10-20 15:00 | ED PDOC ---
Arrival/HPI - General Chief Complaint: Trauma Historian: Skilled Nursing - History of Present Illness Narrative History of Present Illness (Text): 10/20/18 14:57 A 78 year old male, whose past medical history includes bipolar disorder, diabetes type 2, NV, dementia, hypertension, and pacemaker, presents to the emergency department via ambulance from [facility] w/report of fall from chair. Per transfer document, patient hit head but did not have LOC. Patient reports he feels pain to mid and lower back. Patient denies any LOC, or any other complaints at this time. Limited HPI and ROS due to patient being a poor historian. Past Medical History - Provider Review Nursing Documentation Reviewed: Yes - Cardiac Hx Cardiac Disorders: Yes Hx Hypertension: Yes - Pulmonary Hx Respiratory Disorders: No - Neurological Hx Neurological Disorder: Yes Other/Comment: TREMORS - HEENT Hx HEENT Disorder: Yes - Renal Hx Renal Disorder: No - Endocrine/Metabolic Hx Diabetes Mellitus Type 2: Yes - Hematological/Oncological Hx Blood Disorders: No - Integumentary Hx Dermatological Disorder: No - Musculoskeletal/Rheumatological Hx Musculoskeletal Disorders: No - Gastrointestinal Hx Gastrointestinal Disorders: No - Genitourinary/Gynecological Hx Genitourinary Disorders: No - Psychiatric Hx Psychophysiologic Disorder: Yes Hx Substance Use: No - Surgical History Other/Comment: PACEMAKER - Anesthesia Hx Anesthesia: Yes Hx Anesthesia Reactions: No Hx Malignant Hyperthermia: No Family/Social History - Physician Review Nursing Documentation Reviewed: Yes Family/Social History: No Known Family HX Smoking Status: Former Smoker Hx Alcohol Use: No Hx Substance Use: No Allergies/Home Meds Allergies/Adverse Reactions: Allergies Penicillins Allergy (Verified 10/20/18 14:32) SWELLING valsartan [From Diovan] Allergy (Verified 10/20/18 14:32) URTICARIA Dye used in Cat Scans Allergy (Uncoded 10/20/18 14:32) URTICARIA Sulfa Drugs Allergy (Uncoded 10/20/18 14:32) URTICARIA Home Medications: Home Meds Medication Instructions Recorded Confirmed Benztropine Mesylate 1 mg PO BID 10/20/18 10/20/18 Divalproex [Depakote ER(ONCE 500 mg PO BID 10/20/18 10/20/18 DAILY)] Furosemide [Lasix] 20 mg PO DAILY 10/20/18 10/20/18 Linagliptin [Tradjenta] 5 mg PO DAILY 10/20/18 10/20/18 Metoprolol Succinate [Kapspargo 25 mg PO DAILY 10/20/18 10/20/18 Sprinkle] Peg 400/Hypromellose/Glycerin 15 ml OU BID 10/20/18 10/20/18 [Artificial Tears 0.2%-0.2%-1% 15 ml] Potassium Chloride [Klor-Con 10] 10 meq PO DAILY 10/20/18 10/20/18 clonazePAM [clonAZEPAM] 1 mg PO BID 10/20/18 10/20/18 risperiDONE [RisperDAL Tab] 2 mg PO BID 10/20/18 10/20/18 Review of Systems - Review of Systems Systems not reviewed;Unavailable: Other (patient is a poor historian) Physical Exam Vital Signs Reviewed: Yes Vital Signs Temp Pulse Resp BP Pulse Ox 10/20/18 14:07 97.7 F 61 18 132/73 93 L Temperature: Afebrile Blood Pressure: Normal Pulse: Regular Respiratory Rate: Normal Appearance: Positive for: Well-Appearing, Non-Toxic, Comfortable Pain Distress: None Mental Status: No: Alert and Oriented X 3 (alert and oriented x 1 (uncertain if baseline or not)) - Systems Exam Head: Present: Atraumatic, Normocephalic Pupils: Present: PERRL Extroacular Muscles: Present: EOMI Conjunctiva: Present: Normal Ears: No: Fluid Mouth: Present: Dry Pharnyx: Present: Normal Nose (External): Present: Atraumatic Nose (Internal): No: Septal Hematoma Neck: Present: Trachea Midline. No: MIDLINE TENDERNESS Respiratory/Chest: Present: Clear to Auscultation, Good Air Exchange. No: Respiratory Distress Cardiovascular: Present: Regular Rate and Rhythm, Normal S1, S2. No: Murmurs Abdomen: Present: Tenderness (mild LLQ), Normal Bowel Sounds. No: Distention, Peritoneal Signs Back: Present: Normal Inspection, Paraspinal Tenderness (lower thoracic and lumbar area). No: CVA Tenderness Upper Extremity: Present: Normal Inspection Lower Extremity: Present: Edema Neurological: Present: GCS=15, CN II-XII Intact, Speech Normal, Motor Func Grossly Intact, Normal Sensory Function Medical Decision Making ED Course and Treatment: 10/20/18 15:01 Impression: 78 year old male with head trauma and lower back pain s/p fall. Physical exam shows tenderness to palpation to LLQ region; mid-lower thoracic and lower lumbar tenderness; trace edema bilaterally. Plan: -- EKG -- Chest CT -- Head CT -- Lumbar Spinal CT -- Thoracic Spinal CT -- Cervical Spinal CT -- Labs -- Urinalysis -- Reassess and disposition Progress Notes: EKG: Ordered, reviewed, and independently interpreted the EKG. Rate : 62 BPM Rhythm : NSR Interpretation : Left axis deviation, LBBB. Comparison : similar to previous. 10/20/18 18:[address], reviewed by radiologist: Impression: Advanced hypertrophic and degenerative changes lower cervical spine. Mild anterolisthesis at the C2-C3 C3-C4 and C4-C5 levels. No acute fracture. Cardiac pacer pacing wires are noted. Clinical correlation advised. Electronically signed on Oct 20, 2018 6:26:39 PM EDT by: Jayson Weiss M.D., Certified by [employer], Diagnostic Radiology CT Chest, reviewed by radiologist: Impression: Diffuse moderately advanced hypertrophic and degenerative change thoracic spine. No acute fracture. Mild consolidation and/or atelectasis at the lung bases. Minimal pleural thickening bilaterally. Left cardiac pacer pacing wires. Electronically signed on Oct 20, 2018 6:31:07 PM EDT by: Jayson Weiss M.D., Certified by [employer], Diagnostic Radiology Lumbar Spine CT, reviewed by radiologist: Impression: Hypertrophic and degenerative change with chronic disc disease at the L5-S1 level. No acute fracture identified. Minimal anterolisthesis L4-L5 level. Clinical correlation advised. Electronically signed on Oct 20, 2018 6:22:37 PM EDT by: Jayson Weiss M.D., Certified by [employer], Diagnostic Radiology 10/20/18 18:58 arrived and states that patient lives in assisted living and falls frequently. Case discussed with , who accepts patient for syncope and frequent falls. Dr. Bergman requests CT abd/pelvis w/o PO contrast. UA pending at time of dispo. 10/21/18 13:29 - Lab Interpretations I have reviewed the lab results: Yes - RAD Interpretation Radiology Orders: 10/20/18 14:45 CERVICAL SPINE W/O CONTRAST [CT] Stat CHEST W/O CONTRAST [CT] Stat HEAD W/O CONTRAST [CT] Stat LUMBAR SPINE W/O CONTRAST [CT] Stat THORACIC SPINE W/O CONT [CT] Stat - EKG Interpretation EKG Interpretation (Text): Paced Comparison: Similar to previous EKG - Scribe Statement The provider has reviewed the documentation as recorded by the Katie Egan Provider Scribe Attestation: All medical record entries made by the Scribe were at my direction and personally dictated by me. I have reviewed the chart and agree that the record accurately reflects my personal performance of the history, physical exam, medical decision making, and the department course for this patient. I have also personally directed, reviewed, and agree with the discharge instructions and disposition. Disposition/Present on Arrival - Present on Arrival Any Indicators Present on Arrival: Yes History of DVT/PE: No History of Uncontrolled Diabetes: Yes Urinary Catheter: No History of Decub. Ulcer: No History Surgical Site Infection Following: None - Disposition Have Diagnosis and Disposition been Completed?: Yes Diagnosis: Frequent falls Disposition: HOSPITALIZED Disposition Time: 18:55 Patient Plan: Admission Patient Problems: Current Active Problems Problem Status Onset Frequent falls Acute Condition: STABLE
[2018-10-20 16:00] LABS: BASO # 0.02 K/mm3 (0.0-2.0); BASO % 0.3 % (0.0-3.0); EOS # 0.1 (0.0-0.7); EOS % 1.2 % (1.5-5.0); LYMPH # 2.3 (1.2-3.4); LYMPH % 29.5 % (22.0-35.0); MEAN CORPUSCULAR HEMOGLOBIN 31.1 pg (25.0-35.0); MEAN CORPUSCULAR HGB CONC 33.8 g/dl (31.0-37.0); MEAN PLATELET VOLUME 10.1 fl (7.0-11.0); MONO # 1.2 (0.1-0.6); MONO % 14.9 % (1.0-6.0); RBC 4.5 10^6/uL (3.5-6.1); RED CELL DISTRIBUTION WIDTH 12.5 % (11.5-14.5); WHITE BLOOD COUNT 7.8 10^3/uL (4.5-11.0)
[2018-10-20 16:04] LABS: ALBUMIN 3.3 g/dL (3.0-4.8); ALT/SGPT 12 U/L (7-56); AST/SGOT 21 U/L (17-59); BLOOD UREA NITROGEN 32 mg/dL (7-21); CALCIUM 9.2 mg/dL (8.4-10.5); GFR NON-AFRICAN AMERICAN > 60
[2018-10-20 16:15] LABS: TROPONIN I < 0.01 ng/mL
--- NOTE | 2018-10-20 17:42 | CT ---
Date of service: 10/20/2018 PROCEDURE: CT HEAD WITHOUT CONTRAST. HISTORY: fall/head injury COMPARISON: Noncontrast head CT performed 03/02/18 TECHNIQUE: Axial computed tomography images were obtained through the head/brain without intravenous contrast. Radiation dose: Total exam DLP = 940.21 mGy-cm. This CT exam was performed using one or more of the following dose reduction techniques: Automated exposure control, adjustment of the mA and/or kV according to patient size, and/or use of iterative reconstruction technique. FINDINGS: HEMORRHAGE: No intracranial hemorrhage. BRAIN: Diffuse atrophy with prominence of the ventricles and sulci noted. No mass effect or edema. Intracranial atherosclerosis. Scattered periventricular and subcortical white matter hypodensities, which are nonspecific, but often seen with chronic microvascular ischemic disease. Please note that MRI with diffusion imaging is more sensitive in the detection of acute ischemic event. VENTRICLES: No hydrocephalus. CALVARIUM: Unremarkable. PARANASAL SINUSES: Unremarkable as visualized. No significant inflammatory changes. MASTOID AIR CELLS: Unremarkable as visualized. No inflammatory changes. OTHER FINDINGS: None. IMPRESSION: No acute intracranial pathology identified. Generalized atrophy. Nonspecific white matter changes.
[2018-10-20] MEDS ORDERED: Sodium Chloride 0.9% 500 ML IV STA (19:10)
[2018-10-20] MEDS ORDERED: Morphine 2 mg/ml ISec IVP STA (20:41)
--- NOTE | 2018-10-20 21:29 | CT ---
Date of service: 10/20/2018 CT chest without IV contrast Indication: fall/abd pain Technique: Contiguous axial images were obtained through the chest without intravenous contrast enhancement. Sagittal and coronal reconstructions were generated and reviewed. This CT exam was performed using 1 or more of the following dose reduction techniques: Automated exposure control, adjustment of the MAA and/or kV according to patient size, and/or use of iterative reconstruction technique. Radiation dose (DLP): 864.07 MGy-cm. Comparison: Chest x-ray performed 02/18/18 Findings: Visualized portions of the inferior thyroid gland demonstrates 10 mm hypodense nodule at the right lower pole. The mediastinal and hilar vascular structures appear within normal limits. Dual lead left-sided pacemaker. Cardiomegaly. Biapical pleural thickening. Scattered atelectasis/scarring. No focal consolidation. No pleural effusion. No pneumothorax. Limited visualization of the noncontrast upper abdomen: Cholelithiasis. 1.9 cm exophytic hypodense right renal mass measures approximately 19 Hounsfield units, possibly complex cyst. Punctate, approximately 2 mm left renal calculus. Mild fullness of the left renal collecting system. Hepatomegaly. Left 5th and 6th posterior rib fracture deformities appear chronic; correlate with physical exam. Diffuse osseous demineralization. Multilevel degenerative changes. Impression: Biapical pleural thickening. Scattered atelectasis/scarring. Dual lead left-sided pacemaker. Cardiomegaly. Limited visualization of the noncontrast upper abdomen: Cholelithiasis. 1.9 cm exophytic hypodense right renal mass measures approximately 19 Hounsfield units, possibly complex cyst. Punctate, approximately 2 mm left renal calculus. Mild fullness of the left renal collecting system. Hepatomegaly. Left 5th and 6th posterior rib fracture deformities appear chronic; correlate with physical exam. 10 mm hypodense nodule inferior lower pole thyroid gland. Preliminary impression was provided by [employer].
--- NOTE | 2018-10-20 22:04 | CT ---
Date of service: 10/20/2018 CT lumbar spine without IV contrast Indication: fall/back pain Comparison: Lumbar spine CT without and with IV contrast performed 02/18/18 Technique: Noncontrast axial images of the lumbar spine were provided. Sagittal and coronal reformatted images were generated and reviewed. This CT exam was performed using 1 or more of the following dose reduction techniques: Automated exposure control, adjustment of the MAA and/or kV according to patient size, and/or use of iterative reconstruction technique. Total exam DLP: 1815.09 MGy-cm Findings: Multilevel degenerative changes including osteophyte formation and intervertebral disc space narrowing. Grade 1 anterolisthesis of L4 on L5. Evidence of spinal stenosis at L4-L5. Alignment appears otherwise satisfactory. Osseous demineralization limits evaluation for acute fracture lines. Facet hypertrophy. Paraspinal soft tissues appear unremarkable. Limited visualization of the intra-abdominal and intrapelvic contents demonstrates atherosclerotic calcifications of the aorta. Exophytic 2.2 cm right renal hypodense lesion measuring approximately 15 Hounsfield units, likely cyst. The prostate gland measures approximately 3.2 x 4.3 cm and contains calcifications. Impression: Osseous demineralization. Multilevel degenerative changes. Grade 1 anterolisthesis of L4 on L5. Evidence of spinal stenosis again seen at L4-L5. No acute fracture or subluxation identified. Limited visualization of the intra-abdominal and intrapelvic contents demonstrates atherosclerotic calcifications of the aorta. Exophytic 2.2 cm right renal hypodense lesion measuring approximately 15 HU, likely cyst. The prostate gland measures approximately 3.2 x 4.3 cm and contains calcifications; suggest correlation with PSA. Preliminary impression was provided by [employer].
[2018-10-21 09:43] LABS: HEMOGLOBIN 13.3 g/dL (14.0-18.0); MEAN CELL VOLUME 92.5 fl (80.0-105.0); MEAN CORPUSCULAR HEMOGLOBIN 30.3 pg (25.0-35.0); MEAN CORPUSCULAR HGB CONC 32.8 g/dl (31.0-37.0); MEAN PLATELET VOLUME 9.9 fl (7.0-11.0); RBC 4.39 10^6/uL (3.5-6.1); RED CELL DISTRIBUTION WIDTH 12.5 % (11.5-14.5); WHITE BLOOD COUNT 10.3 10^3/uL (4.5-11.0)
[2018-10-21 09:53] LABS: ALBUMIN 2.9 g/dL (3.0-4.8); ALT/SGPT 12 U/L (7-56); AST/SGOT 21 U/L (17-59); BLOOD UREA NITROGEN 33 mg/dL (7-21); CALCIUM 8.9 mg/dL (8.4-10.5); GFR NON-AFRICAN AMERICAN > 60
[2018-10-21] MEDS: Divalproex 500 mg DR(BID formulation) PO SCH ×2 (09:55→17:39)
[2018-10-21] MEDS: Enoxaparin 40 mg Syringe SC SCH (09:55)
[2018-10-21] MEDS: Lubricant Eye Drops UD OU SCH ×2 (09:56→17:41)
[2018-10-21] MEDS: Potassium Chloride 10 mEq ER Tab PO SCH (09:59)
[2018-10-21] MEDS: Metoprolol Succinate 25 mg XL Tab PO SCH (09:59)
[2018-10-21] MEDS ORDERED: METOPROLOL SUCCINATE 25 MG PO SCH (10:00)
[2018-10-21] MEDS: Sodium Chloride 0.45% 1,000 ML IV SCH (10:01)
[2018-10-21] MEDS: Linagliptin [Tradjenta] 5 MG (HOME MED) PO SCH (10:01)
[2018-10-21 10:03] LABS: TROPONIN I < 0.01 ng/mL
--- NOTE | 2018-10-21 10:16 | CARD ---
APPROVED REPORT Date of service: 10/20/2018 EKG Measurement Heart [id number] <Conclusion> Electronic atrial pacemaker Left axis deviation Left bundle branch block Abnormal ECG
--- NOTE | 2018-10-21 10:34 | CP.PCM.CON ---
History of Present Illness - History of Present Illness History of Present Illness: 78 year old male with PMH of bipolar disorder, dementia, DM, HTN, S/P pacemaker placement [facility] because [facility] a [facility]. There was no note of fever in the [facility], no diarrhea, no vomiting. Currently the patient is sleeping but easily arousable and answers simple questions. He was apparently noted to be warm by the PMD and Infectious diseases consult is requested to evaluate for possible fever. Currently the patient states he does not have chills, no headache, no cough, no sore throat, no abdominal pain, no chest pain. Review of Systems - Review of Systems All systems: reviewed and no additional remarkable complaints except (as per HPI) Past Patient History - Past Social History Smoking Status: Former Smoker - CARDIAC Hx Cardiac Disorders: Yes Hx Hypertension: Yes - PULMONARY Hx Respiratory Disorders: No - NEUROLOGICAL Hx Neurological Disorder: Yes Other/Comment: TREMORS - HEENT Hx HEENT Problems: Yes - RENAL Hx Chronic Kidney Disease: No - ENDOCRINE/METABOLIC Hx Diabetes Mellitus Type 2: Yes - HEMATOLOGICAL/ONCOLOGICAL Hx Blood Disorders: No - INTEGUMENTARY Hx Dermatological Problems: No - MUSCULOSKELETAL/RHEUMATOLOGICAL Hx Falls: Yes - GASTROINTESTINAL Hx Gastrointestinal Disorders: No - GENITOURINARY/GYNECOLOGICAL Hx Genitourinary Disorders: No - PSYCHIATRIC Hx Psychophysiologic Disorder: Yes Hx Substance Use: No - SURGICAL HISTORY Other/Comment: PACEMAKER - ANESTHESIA Hx Anesthesia: Yes Hx Anesthesia Reactions: No Hx Malignant Hyperthermia: No Meds Allergies/Adverse Reactions: Allergies Allergy/AdvReac Type Severity Reaction Status Date / Time Penicillins Allergy SWELLING Verified 10/20/18 14:32 valsartan [From Diovan] Allergy URTICARIA Verified 10/20/18 14:32 Dye used in Cat Scans Allergy URTICARIA Uncoded 10/20/18 14:32 Sulfa Drugs Allergy URTICARIA Uncoded 10/20/18 14:32 - Medications Medications: Current Medications Acetaminophen (Tylenol 325mg Tab) 650 mg PO Q6H PRN PRN Reason: Pain, moderate (4-7) Artificial Tears (Refresh Opth Soln) 0.3 ml OU BID [facility] Aspirin (Ecotrin) 81 mg PO DAILY [facility] Benztropine Mesylate (Cogentin) 1 mg PO BID [facility] Clonazepam (Klonopin) 1 mg PO BID [facility]; Protocol Divalproex Sodium (Depakote Dr(*Bid*)) 500 mg PO BID [facility]; Protocol Docusate Sodium (Colace) 100 mg PO HS [facility] Enoxaparin Sodium (Lovenox) 40 mg SC DAILY [facility]; Protocol Furosemide (Lasix) 20 mg PO DAILY [facility] Sodium Chloride (Sodium Chloride 0.45%) 1,000 mls @ 60 mls/hr IV .[id number] [facility] Levothyroxine Sodium (Synthroid) 75 mcg PO 0600 [facility] Lisinopril (Zestril) 5 mg PO DAILY [facility] Metoprolol Succinate (Toprol Xl) 25 mg PO DAILY [facility] Multivitamins/Minerals (Therapeutic-M Tab) 1 tab PO 0800 [facility] Linagliptin [ Tradjenta] 5 Mg ( Home Med) 5 mg PO DAILY [facility] Pantoprazole Sodium (Protonix Inj) 40 mg IVP DAILY [facility] Potassium Chloride (Klor-Con 10) 10 meq PO DAILY [facility] Risperidone (Risperdal Tab) 2 mg PO BID [facility]; Protocol Physical Exam - Constitutional Appears: No Acute Distress, Chronically Ill - Head Exam Head Exam: NORMAL INSPECTION - ENT Exam ENT Exam: Mucous Membranes Moist - Neck Exam Neck exam: Negative for: Lymphadenopathy, Meningismus - Respiratory Exam Respiratory Exam: Decreased Breath Sounds - Cardiovascular Exam Cardiovascular Exam: +S1, +S2 - GI/Abdominal Exam GI & Abdominal Exam: Soft. absent: Tenderness Results - Vital Signs Recent Vital Signs: Last Vital Signs Temp 99.6 F 10/21/18 06:00 Pulse 81 10/21/18 06:00 Resp 20 10/21/18 06:00 BP 155/82 H 10/21/18 06:00 Pulse Ox 95 10/21/18 06:00 - Labs Result Diagrams: 10/21/18 09:30 10/21/18 09:30 Labs: Laboratory Results - last 24 hr 10/20/18 10/20/18 15:37 15:37 WBC 7.8 RBC 4.50 Hgb 14.0 Hct 41.4 L MCV 92.0 MCH 31.1 MCHC 33.8 RDW 12.5 Plt Count 134 MPV 10.1 Neut % (Auto) 54.1 Lymph % (Auto) 29.5 [place] % (Auto) 14.9 H Eos % (Auto) 1.2 L Baso % (Auto) 0.3 Lymph # (Auto) 2.3 [place] # (Auto) 1.2 H Eos # (Auto) 0.1 Baso # (Auto) 0.02 Absolute Neuts (auto) 4.21 Sodium 142 Potassium 4.3 Chloride 106 Carbon Dioxide 30 Anion Gap 10 BUN 32 H Creatinine 0.8 Est GFR ( Amer) > 60 Est GFR (Non-Af Amer) > 60 Random Glucose 87 Calcium 9.2 Total Bilirubin 0.5 AST 21 ALT 12 Alkaline Phosphatase 56 Troponin I < 0.01 Total Protein 6.5 Albumin 3.3 Globulin 3.2 Albumin/Globulin Ratio 1.0 L Assessment & Plan - Assessment and Plan (Free Text) Assessment: Assessment Possible hyperthermia, source not clear S/P fall bipolar disorder dementia DM HTN S/P pacemaker placement Plan Will observe off antibiotics for now; will get blood, urine cx, follow up on CT chest/abdomen/pelvis CT head shows generalized atrophy of the brain but no acute pathology will monitor clinically follow up recommendations of Cardiology
--- NOTE | 2018-10-21 10:48 | CT ---
Date of service:2018-10-20 17:24:32 CT cervical spine without IV contrast Indication: fall/head injury Comparison: Cervical spine CT without contrast performed 03/02/18 Technique: Axial computed tomography images were obtained of the cervical spine without the use of intravenous contrast. Coronal and sagittal reformatted images were created and reviewed. This CT exam was performed using 1 or more of the following dose reduction techniques: Automated exposure control, adjustment of the MAA and/or kV according to patient size, and/or use of iterative reconstruction technique. Radiation dose: Total exam DLP = 502.1 mGy-cm. Findings: Straightening of the normal cervical lordosis may be related to muscle spasm or positioning. Scoliosis. Multilevel degenerative changes including intervertebral disc space narrowing and osteophyte formation. Degenerative changes most severe at C5-C6 and C6-C7. Facet hypertrophy. Osseous demineralization. No acute displaced fracture identified. The prevertebral soft tissues and spinolaminar lines appear intact. The lateral masses are preserved. The dens tip is intact. There is proper alignment of the lateral masses of C1 with the C2 vertebral body. Included portions of the thyroid gland demonstrates 8 mm hypodense nodule at the right lower pole. Included portions of lung apices appear clear. Partially imaged left-sided pacemaker. Impression: Straightening of the normal cervical lordosis may be related to muscle spasm or positioning. Scoliosis. Diffuse osseous demineralization limits evaluation for acute fracture lines. Multilevel degenerative changes. No acute displaced fracture appreciated. 8 mm hypodense thyroid nodule, right lower pole. No evidence of acute fracture or subluxation. Preliminary impression was provided by [employer].
--- NOTE | 2018-10-21 11:23 | CP.PCM.CON ---
History of Present Illness - History of Present Illness History of Present Illness: CONSULT for DR. CONCHITA MIKE Awake, alert, disoriented, no distress Reason for consultation: Cardiac evaluation of cause of fall, post fall, history of Permanent pacemaker Brief history of present illness: A 78 year old male who was brought to the ER from detention due to head trauma due to fall. He also complains of lower susan k pain. History of bipolar disorder, diabetes , DE, dementia, hypertension, and permanent pacemaker. Poor historian. Seen and examined by me and Dr. Fink Review of Systems - Review of Systems All systems: reviewed and no additional remarkable complaints except Review of Systems: as per HPI Past Patient History - Past Social History Smoking Status: Former Smoker - CARDIAC Hx Cardiac Disorders: Yes Hx Hypertension: Yes - PULMONARY Hx Respiratory Disorders: No - NEUROLOGICAL Hx Neurological Disorder: Yes Other/Comment: TREMORS - HEENT Hx HEENT Problems: Yes - RENAL Hx Chronic Kidney Disease: No - ENDOCRINE/METABOLIC Hx Diabetes Mellitus Type 2: Yes - HEMATOLOGICAL/ONCOLOGICAL Hx Blood Disorders: No - INTEGUMENTARY Hx Dermatological Problems: No - MUSCULOSKELETAL/RHEUMATOLOGICAL Hx Falls: Yes - GASTROINTESTINAL Hx Gastrointestinal Disorders: No - GENITOURINARY/GYNECOLOGICAL Hx Genitourinary Disorders: No - PSYCHIATRIC Hx Psychophysiologic Disorder: Yes Hx Substance Use: No - SURGICAL HISTORY Other/Comment: PACEMAKER - ANESTHESIA Hx Anesthesia: Yes Hx Anesthesia Reactions: No Hx Malignant Hyperthermia: No Meds Allergies/Adverse Reactions: Allergies Allergy/AdvReac Type Severity Reaction Status Date / Time Penicillins Allergy SWELLING Verified 10/20/18 14:32 valsartan [From Diovan] Allergy URTICARIA Verified 10/20/18 14:32 Dye used in Cat Scans Allergy URTICARIA Uncoded 10/20/18 14:32 Sulfa Drugs Allergy URTICARIA Uncoded 10/20/18 14:32 - Medications Medications: Current Medications Acetaminophen (Tylenol 325mg Tab) 650 mg PO Q6H PRN PRN Reason: Pain, moderate (4-7) Artificial Tears (Refresh Opth Soln) 0.3 ml OU BID [facility] Last Admin: 10/21/18 09:56 Dose: 1 applic Aspirin (Ecotrin) 81 mg PO DAILY [facility] Last Admin: 10/21/18 10:00 Dose: 81 mg Benztropine Mesylate (Cogentin) 1 mg PO BID [facility] Last Admin: 10/21/18 10:00 Dose: 1 mg Clonazepam (Klonopin) 1 mg PO BID [facility]; Protocol Last Admin: 10/21/18 09:59 Dose: 1 mg Divalproex Sodium (Depakote Dr(*Bid*)) 500 mg PO BID [facility]; Protocol Last Admin: 10/21/18 09:55 Dose: 500 mg Docusate Sodium (Colace) 100 mg PO [facility] Enoxaparin Sodium (Lovenox) 40 mg SC DAILY [facility]; Protocol Last Admin: 10/21/18 09:55 Dose: 40 mg Furosemide (Lasix) 20 mg PO DAILY [facility] Last Admin: 10/21/18 10:00 Dose: 20 mg Sodium Chloride (Sodium Chloride 0.45%) 1,000 mls @ 60 mls/hr IV .[id number] [facility] Last Admin: 10/21/18 10:01 Dose: 60 mls/hr Levothyroxine Sodium (Synthroid) 75 mcg PO 0600 [facility] Lisinopril (Zestril) 5 mg PO DAILY [facility] Last Admin: 10/21/18 09:59 Dose: 5 mg Metoprolol Succinate (Toprol Xl) 25 mg PO DAILY [facility] Last Admin: 10/21/18 09:59 Dose: 25 mg Multivitamins/Minerals (Therapeutic-M Tab) 1 tab PO 0800 [facility] Linagliptin [ Tradjenta] 5 Mg ( Home Med) 5 mg PO DAILY [facility] Last Admin: 10/21/18 10:01 Dose: Not Given Pantoprazole Sodium (Protonix Inj) 40 mg IVP DAILY [facility] Last Admin: 10/21/18 09:55 Dose: 40 mg Potassium Chloride (Klor-Con 10) 10 meq PO DAILY [facility] Last Admin: 10/21/18 09:59 Dose: 10 meq Risperidone (Risperdal Tab) 2 mg PO BID [facility]; Protocol Last Admin: 10/21/18 09:56 Dose: 2 mg Physical Exam - Constitutional Appears: Non-toxic, No Acute Distress - Head Exam Head Exam: NORMAL INSPECTION, NORMOCEPHALIC - Eye Exam Eye Exam: Normal appearance Pupil Exam: NORMAL ACCOMODATION - ENT Exam ENT Exam: Mucous Membranes Moist - Respiratory Exam Respiratory Exam: Decreased Breath Sounds, Clear to Auscultation Bilateral, NORMAL BREATHING PATTERN - Cardiovascular Exam Cardiovascular Exam: REGULAR RHYTHM, +S1, +S2 Additional comments: PPM - GI/Abdominal Exam GI & Abdominal Exam: Normal Bowel Sounds, Soft - Extremities Exam Extremities exam: Positive for: full ROM Additional comments: trace edema - Neurological Exam Neurological exam: Alert - Psychiatric Exam Psychiatric exam: Normal Affect, Normal Mood - Skin Skin Exam: Dry, Normal Color, Warm Results - Vital Signs Recent Vital Signs: Last Vital Signs Temp 99.6 F 10/21/18 06:00 Pulse 65 10/21/18 09:59 Resp 20 10/21/18 06:00 BP 111/61 10/21/18 10:00 Pulse Ox 95 10/21/18 06:00 - Labs Result Diagrams: 10/21/18 09:30 10/21/18 09:30 Labs: Laboratory Results - last 24 hr 10/20/18 10/20/18 10/21/18 15:37 15:37 09:30 WBC 7.8 10.3 D RBC 4.50 4.39 Hgb 14.0 13.3 L Hct 41.4 L 40.6 L MCV 92.0 92.5 MCH 31.1 30.3 MCHC 33.8 32.8 RDW 12.5 12.5 Plt Count 134 126 MPV 10.1 9.9 Neut % (Auto) 54.1 Lymph % (Auto) 29.5 [place] % (Auto) 14.9 H Eos % (Auto) 1.2 L Baso % (Auto) 0.3 Lymph # (Auto) 2.3 [place] # (Auto) 1.2 H Eos # (Auto) 0.1 Baso # (Auto) 0.02 Absolute Neuts (auto) 4.21 Sodium 142 Potassium 4.3 Chloride 106 Carbon Dioxide 30 Anion Gap 10 BUN 32 H Creatinine 0.8 Est GFR ( Amer) > 60 Est GFR (Non-Af Amer) > 60 Random Glucose 87 Calcium 9.2 Total Bilirubin 0.5 AST 21 ALT 12 Alkaline Phosphatase 56 Troponin I < 0.01 Total Protein 6.5 Albumin 3.3 Globulin 3.2 Albumin/Globulin Ratio 1.0 L 10/21/18 09:30 WBC RBC Hgb Hct MCV MCH MCHC RDW Plt Count MPV Neut % (Auto) Lymph % (Auto) [place] % (Auto) Eos % (Auto) Baso % (Auto) Lymph # (Auto) [place] # (Auto) Eos # (Auto) Baso # (Auto) Absolute Neuts (auto) Sodium 140 Potassium 4.2 Chloride 106 Carbon Dioxide 30 Anion Gap 8 L BUN 33 H Creatinine 0.9 Est GFR ( Amer) > 60 Est GFR (Non-Af Amer) > 60 Random Glucose 140 H Calcium 8.9 Total Bilirubin 0.6 AST 21 ALT 12 Alkaline Phosphatase 54 Troponin I < 0.01 Total Protein 6.0 Albumin 2.9 L Globulin 3.1 Albumin/Globulin Ratio 1.0 L Assessment & Plan - Assessment and Plan (Free Text) Assessment: A 78 year old male who was brought to the ER from detention due to head trauma due to fall. He also complains of lower back pain. History of bipolar disorder, diabetes , DE, dementia, hypertension, and permanent pacemaker. Poor historian. Chart reviewed from previous admissions. history of depression, bipolar psychosis, hyperlipidemia, degenarrative arthritis, hypothyroidism, GERD, falls,tremors, former smoker. Echo done on 03/01/18 and showed moderate to severe concentric LVH, LVEF normal. Recent EKG in ER showed atrially pacing at 60's. T[address]onin normal. CT of head showed no evidence of bleeding/hemorrhage. Lumbar CT no evidence of fracture. Multilevel degenerative changes. Orthostatic vital signs to rule out orthostatic hypotension. Will order for the pacemaker to be interrogated for arrythmias. Plan: No distress, denies chest pain Heart rate stable Blood pressure stable Orthostatic vital signs Will order for the pacemaker to be interrogated for arrythmias. On ASA 81 mg daily,Lasix 20 mg daily, Synthroid 75 mcg daily, Toprol XL 25 mg daily, Potassium 10 meq daily. Continue current treatment Continue current medications Lipid profile, TSH, HgbA1C Further recommendations during hospital course Plan and treatment discussed with Dr. Aleks Mike will resume care in the morning. Thank you Dr. Bergman for the opportunity of taking care of Jhonatan Marissa - Date & Time Date: 10/21/18 Time: 10:00
--- NOTE | 2018-10-21 11:55 | US ---
HISTORY: Leg pain and swelling. Evaluate for DVT PHYSICIAN(S): Davian Hoover MD. TECHNIQUE: Duplex sonography and color-flow Doppler with graded compression were used to evaluate the deep venous systems of both lower extremities. FINDINGS: The visualized deep venous systems of both lower extremities are sonographically normal and compressible. Normal wave forms and augmentation are seen. There is no sonographic evidence for deep venous thrombosis in the visualized segments of both lower extremities. IMPRESSION: No sonographic evidence for deep venous thrombosis in the visualized segments of both lower extremities.
--- NOTE | 2018-10-21 11:59 | CT ---
PROCEDURE: CT Abdomen and Pelvis without Oral or IV contrast. HISTORY: fall/abd pain COMPARISON: None available. TECHNIQUE: Contiguous axial images of the abdomen and pelvis. No oral or IV contrast administered. Coronal and Sagittal reformats generated and reviewed. Radiation dose: Total exam DLP = 974.63 mGy-cm. This CT exam was performed using one or more of the following dose reduction techniques: Automated exposure control, adjustment of the mA and/or kV according to patient size, and/or use of iterative reconstruction technique. FINDINGS: There is limited evaluation of the solid organs without the administration of IV contrast. LOWER THORAX: Patchy bibasilar atelectasis/infiltrates and trace effusions. No visible pneumothorax. Partially imaged cardiomegaly. Partially imaged pacer wires. LIVER: Unremarkable unenhanced appearance. GALLBLADDER AND BILE DUCTS: Gallstone in the gallbladder. PANCREAS: Unremarkable unenhanced appearance. SPLEEN: Unremarkable unenhanced appearance. ADRENALS: Unremarkable unenhanced appearance. KIDNEYS AND URETERS: No hydronephrosis or obstructing renal calculus. Exophytic 1.9 cm right renal hypodensity measures approximately 21 Hounsfield units, higher than expected for simple cyst. BLADDER: The urinary bladder appears unremarkable. REPRODUCTIVE: The prostate gland measures approximately 3.6 x 4.4 cm and contains calcifications. APPENDIX: The appendix appears within normal limits of caliber. No secondary signs of acute appendicitis. BOWEL: The stomach is nondistended. Lack of oral contrast limits evaluation for bowel pathology. The bowel loops appear within normal limits of caliber without evidence of intestinal obstruction. Moderate diffuse constipation. PERITONEUM: No significant free fluid. No definite free air. LYMPH NODES: No bulky lymphadenopathy identified. VASCULATURE: Atherosclerotic calcifications of the aorta branches. No aortic aneurysm. BONES: Osseous demineralization. Multilevel degenerative changes. Chronic appearing fracture deformities involving posterior left 6th and 7th ribs. OTHER FINDINGS: Small fat containing umbilical hernia. IMPRESSION: Cholelithiasis. Exophytic 1.9 cm right renal hypodensity measures approximately 21 HU, higher than expected for simple cyst. Renal ultrasound may be considered for further evaluation. Bibasilar atelectasis/infiltrates. Additional findings as above. Preliminary impression was provided by [employer].
[2018-10-21] MEDS ORDERED: Bisacodyl 5mg EC Tab PO ONE (16:02)
--- NOTE | 2018-10-21 16:07 | CP.PCM.CON ---
<Maurice Ponce - Last Filed: 10/21/18 16:03> History of Present Illness - History of Present Illness History of Present Illness: GI fellow PGY 4, consult note Patient is a 78-year-old male with history of bipolar, type 2 diabetes, dementia, permanent pacemaker who presented to the emergency department with a fall and possible head trauma. Patient came from [facility]. Gastroente rology was consulted for "abdominal pain". Patient is demented and unable to give proper history. Most of the history is from chart and nursing staff. At this time, patient is in no pain no complaints of abdominal discomfort, nausea, vomiting. Workup in the emergency department showed normal labs. CT abdomen and pelvis showed retained stool and possible fecal impaction and benign looking gall stones. Past Patient History - Past Social History Smoking Status: Former Smoker - CARDIAC Hx Cardiac Disorders: Yes Hx Hypertension: Yes - PULMONARY Hx Respiratory Disorders: No - NEUROLOGICAL Hx Neurological Disorder: Yes Other/Comment: TREMORS - HEENT Hx HEENT Problems: Yes - RENAL Hx Chronic Kidney Disease: No - ENDOCRINE/METABOLIC Hx Diabetes Mellitus Type 2: Yes - HEMATOLOGICAL/ONCOLOGICAL Hx Blood Disorders: No - INTEGUMENTARY Hx Dermatological Problems: No - MUSCULOSKELETAL/RHEUMATOLOGICAL Hx Musculoskeletal Disorders: No - GASTROINTESTINAL Hx Gastrointestinal Disorders: No - GENITOURINARY/GYNECOLOGICAL Hx Genitourinary Disorders: No - PSYCHIATRIC Hx Psychophysiologic Disorder: Yes Hx Substance Use: No - SURGICAL HISTORY Other/Comment: PACEMAKER - ANESTHESIA Hx Anesthesia: Yes Hx Anesthesia Reactions: No Hx Malignant Hyperthermia: No Meds Allergies/Adverse Reactions: Allergies Allergy/AdvReac Type Severity Reaction Status Date / Time Penicillins Allergy SWELLING Verified 10/20/18 14:32 valsartan [From Diovan] Allergy URTICARIA Verified 10/20/18 14:32 Dye used in Cat Scans Allergy URTICARIA Uncoded 10/20/18 14:32 Sulfa Drugs Allergy URTICARIA Uncoded 10/20/18 14:32 - Medications Medications: Current Medications Acetaminophen (Tylenol 325mg Tab) 650 mg PO Q6H PRN PRN Reason: Pain, moderate (4-7) Artificial Tears (Refresh Opth Soln) 0.3 ml OU BID [facility] Last Admin: 10/21/18 09:56 Dose: 1 applic Aspirin (Ecotrin) 81 mg PO DAILY [facility] Last Admin: 10/21/18 10:00 Dose: 81 mg Benztropine Mesylate (Cogentin) 1 mg PO BID [facility] Last Admin: 10/21/18 10:00 Dose: 1 mg Bisacodyl (Dulcolax) 10 mg PO ONCE ONE Stop: 10/21/18 16:03 Clonazepam (Klonopin) 1 mg PO BID [facility]; Protocol Last Admin: 10/21/18 09:59 Dose: 1 mg Divalproex Sodium (Depakote Dr(*Bid*)) 500 mg PO BID [facility]; Protocol Last Admin: 10/21/18 09:55 Dose: 500 mg Docusate Sodium (Colace) 100 mg PO [facility] Enoxaparin Sodium (Lovenox) 40 mg SC DAILY [facility]; Protocol Last Admin: 10/21/18 09:55 Dose: 40 mg Furosemide (Lasix) 20 mg PO DAILY [facility] Last Admin: 10/21/18 10:00 Dose: 20 mg Sodium Chloride (Sodium Chloride 0.45%) 1,000 mls @ 60 mls/hr IV .[id number] [facility] Last Admin: 10/21/18 10:01 Dose: 60 mls/hr Levothyroxine Sodium (Synthroid) 75 mcg PO 0600 [facility] Lisinopril (Zestril) 5 mg PO DAILY [facility] Last Admin: 10/21/18 09:59 Dose: 5 mg Metoprolol Succinate (Toprol Xl) 25 mg PO DAILY [facility] Last Admin: 10/21/18 09:59 Dose: 25 mg Multivitamins/Minerals (Therapeutic-M Tab) 1 tab PO 0800 [facility] Linagliptin [ Tradjenta] 5 Mg ( Home Med) 5 mg PO DAILY [facility] Last Admin: 10/21/18 10:01 Dose: Not Given Pantoprazole Sodium (Protonix Inj) 40 mg IVP DAILY [facility] Last Admin: 10/21/18 09:55 Dose: 40 mg Polyethylene Glycol (Miralax) 17 gm PO BID [facility] Potassium Chloride (Klor-Con 10) 10 meq PO DAILY [facility] Last Admin: 10/21/18 09:59 Dose: 10 meq Risperidone (Risperdal Tab) 2 mg PO BID [facility]; Protocol Last Admin: 10/21/18 09:56 Dose: 2 mg Physical Exam - Constitutional Appears: Non-toxic, No Acute Distress, Confused - Eye Exam Eye Exam: EOMI, Normal appearance - ENT Exam ENT Exam: Mucous Membranes Moist, Normal Exam - Respiratory Exam Respiratory Exam: Clear to Auscultation Bilateral, NORMAL BREATHING PATTERN - Cardiovascular Exam Cardiovascular Exam: REGULAR RHYTHM, +S1, +S2 Additional comments: Permanent pacemaker present - GI/Abdominal Exam GI & Abdominal Exam: Normal Bowel Sounds, Soft. absent: Distended, Organomegaly, Tenderness - Rectal Exam Rectal Exam: Deferred - Extremities Exam Extremities exam: Positive for: normal inspection. Negative for: pedal edema - Neurological Exam Neurological exam: Altered - Psychiatric Exam Psychiatric exam: Flat Affect - Skin Skin Exam: Dry, Warm Results - Vital Signs Recent Vital Signs: Last Vital Signs Temp 98.1 F 10/21/18 12:00 Pulse 76 10/21/18 12:00 Resp 19 10/21/18 12:00 BP 122/75 10/21/18 12:00 Pulse Ox 95 10/21/18 06:00 - Labs Result Diagrams: 10/21/18 09:30 10/21/18 09:30 Labs: Laboratory Results - last 24 hr 10/20/18 10/21/18 10/21/18 15:37 09:30 09:30 WBC 10.3 D RBC 4.39 Hgb 13.3 L Hct 40.6 L MCV 92.5 MCH 30.3 MCHC 32.8 RDW 12.5 Plt Count 126 MPV 9.9 Sodium 142 140 Potassium 4.3 4.2 Chloride 106 106 Carbon Dioxide 30 30 Anion Gap 10 8 L BUN 32 H 33 H Creatinine 0.8 0.9 Est GFR ( Amer) > 60 > 60 Est GFR (Non-Af Amer) > 60 > 60 Random Glucose 87 140 H Calcium 9.2 8.9 Total Bilirubin 0.5 0.6 AST 21 21 ALT 12 12 Alkaline Phosphatase 56 54 Troponin I < 0.01 < 0.01 Total Protein 6.5 6.0 Albumin 3.3 2.9 L Globulin 3.2 3.1 Albumin/Globulin Ratio 1.0 L 1.0 L Assessment & Plan - Assessment and Plan (Free Text) Assessment: #Constipation #Fecal impaction #Dementia #Bipolar #Type 2 diabetes #Status post permanent pacemaker Plan: CT reviewed and showing fecal impaction and retained colonic stool. Start a bowel regimen and tapwater enema Follow-up urinalysis No planned endoscopic procedures at this time Reevaluate tomorrow a.m. Case discussed with Dr. Garduno, see attestation - Date & Time Date: 10/21/18 Time: 16:08 <Ish Garduno V - Last Filed: 10/21/18 23:47> Meds - Medications Medications: Current Medications Acetaminophen (Tylenol 325mg Tab) 650 mg PO Q6H PRN PRN Reason: Pain, moderate (4-7) Artificial Tears (Refresh Opth Soln) 0.3 ml OU BID [facility] Last Admin: 10/21/18 17:41 Dose: 1 applic Aspirin (Ecotrin) 81 mg PO DAILY [facility] Last Admin: 10/21/18 10:00 Dose: 81 mg Benztropine Mesylate (Cogentin) 1 mg PO BID [facility] Last Admin: 10/21/18 17:38 Dose: Not Given Clonazepam (Klonopin) 0.5 mg PO TID [facility]; Protocol Divalproex Sodium (Depakote Dr(*Bid*)) 500 mg PO BID [facility]; Protocol Last Admin: 10/21/18 17:39 Dose: Not Given Docusate Sodium (Colace) 100 mg PO HS [facility] Last Admin: 10/21/18 21:47 Dose: 100 mg Enoxaparin Sodium (Lovenox) 40 mg SC DAILY [facility]; Protocol Last Admin: 10/21/18 09:55 Dose: 40 mg Furosemide (Lasix) 20 mg PO DAILY [facility] Last Admin: 10/21/18 10:00 Dose: 20 mg Sodium Chloride (Sodium Chloride 0.45%) 1,000 mls @ 60 mls/hr IV .[id number] [facility] Last Admin: 10/21/18 10:01 Dose: 60 mls/hr Levothyroxine Sodium (Synthroid) 75 mcg PO 0600 [facility] Lisinopril (Zestril) 5 mg PO DAILY [facility] Last Admin: 10/21/18 09:59 Dose: 5 mg Metoprolol Succinate (Toprol Xl) 25 mg PO DAILY [facility] Last Admin: 10/21/18 09:59 Dose: 25 mg Multivitamins/Minerals (Therapeutic-M Tab) 1 tab PO 0800 [facility] Linagliptin [ Tradjenta] 5 Mg ( Home Med) 5 mg PO DAILY [facility] Last Admin: 10/21/18 10:01 Dose: Not Given Pantoprazole Sodium (Protonix Inj) 40 mg IVP DAILY [facility] Last Admin: 10/21/18 09:55 Dose: 40 mg Polyethylene Glycol (Miralax) 17 gm PO BID [facility] Last Admin: 10/21/18 17:39 Dose: Not Given Potassium Chloride (Klor-Con 10) 10 meq PO DAILY [facility] Last Admin: 10/21/18 09:59 Dose: 10 meq Risperidone (Risperdal Tab) 2 mg PO BID [facility]; Protocol Last Admin: 10/21/18 17:39 Dose: Not Given Results - Vital Signs Recent Vital Signs: Last Vital Signs Temp 98.4 F 10/21/18 18:00 Pulse 62 10/21/18 22:00 Resp 19 10/21/18 18:00 BP 117/74 10/21/18 18:00 Pulse Ox 97 10/21/18 18:00 - Labs Result Diagrams: 10/21/18 09:30 10/21/18 09:30 Labs: Laboratory Results - last 24 hr 10/21/18 10/21/18 10/21/18 09:30 09:30 09:30 WBC 10.3 D RBC 4.39 Hgb 13.3 L Hct 40.6 L MCV 92.5 MCH 30.3 MCHC 32.8 RDW 12.5 Plt Count 126 MPV 9.9 Sodium 140 Potassium 4.2 Chloride 106 Carbon Dioxide 30 Anion Gap 8 L BUN 33 H Creatinine 0.9 Est GFR ( Amer) > 60 Est GFR (Non-Af Amer) > 60 Random Glucose 140 H Calcium 8.9 Total Bilirubin 0.6 AST 21 ALT 12 Alkaline Phosphatase 54 Troponin I < 0.01 Total Protein 6.0 Albumin 2.9 L Globulin 3.1 Albumin/Globulin Ratio 1.0 L Procalcitonin < 0.05 L Urine Color Urine Appearance Urine pH Ur Specific Squires Urine Protein Urine Glucose (UA) Urine Ketones Urine Blood Urine Nitrate Urine Bilirubin Urine Urobilinogen Ur Leukocyte Esterase Urine RBC Urine WBC Ur Epithelial Cells 10/21/18 20:30 WBC RBC Hgb Hct MCV MCH MCHC RDW Plt Count MPV Sodium Potassium Chloride Carbon Dioxide Anion Gap BUN Creatinine Est GFR ( Amer) Est GFR (Non-Af Amer) Random Glucose Calcium Total Bilirubin AST ALT Alkaline Phosphatase Troponin I Total Protein Albumin Globulin Albumin/Globulin Ratio Procalcitonin Urine Color Yellow Urine Appearance Clear Urine pH 6.0 Ur Specific Squires 1.025 Urine Protein Negative Urine Glucose (UA) Negative Urine Ketones Trace H Urine Blood Negative Urine Nitrate Negative Urine Bilirubin Small H Urine Urobilinogen 1.0 H Ur Leukocyte Esterase Trace H Urine RBC TEST NOT PERFORMED Urine WBC 5 - 10 H Ur Epithelial Cells 4 - 5 Attending/Attestation - Attestation I have personally seen and examined this patient.: Yes I have fully participated in the care of the patient.: Yes I have reviewed all pertinent clinical information: Yes Notes (Text): This is an addendum to the GI progress consultation report dictated by the GI fellow the patient was seen and evaluated along with the fellow earlier today. Discussed with the nursing staff. Patient was more alert denied any abdominal pain at the time of examination CT scan was reviewed. We would start the patient on bowel clearance regimen. We will check a urine culture and analysis. We will give a tap water enema. Start the patient on MiraLAX so we will slowly advance the diet as tolerated after the bowel clearance. Further GI workup will be based on the clinical course of the patient 10/21/18 23:45
[2018-10-21] MEDS: POLYETHYLENE GLYCOL 3350 17 GM/Dose PACKET PO SCH (17:39)
--- NOTE | 2018-10-21 17:52 | CP.PCM.PN ---
Subjective - Date & Time of Evaluation Date of Evaluation: 10/21/18 Time of Evaluation: 17:43 - Subjective Subjective: I, PGY-2 on house call, was paged by nurse who noticed patient was lethargic/solmnolent. I went to see patient and patient appeared drows y/lethargic/somnolent, opens eyes on command but then closes eyes immediately. Patient's at bedside, she stated this is not patient's baseline. Patient was given depakote, risperidone and klonopin, all three administered at 10AM. Earlier in the day he was talkative per nurse and conversational - although a poor historian. Likely his current state is due to these medications. Patient lives at [facility] in [place]. Even though these are his home meds the dosages likely need to be reconciled with what he was receiving at the [facility] to verify the dosages are correct. Nurse will try to get in touch with primary attending, Dr Bergman, to notify him. Advice to nurse is to hold evening administration of depakote, risperadone and klonopin (he is also to receive cogentin which will also be held). Meds should be reconciled with assisted living center. Vitals were normal - BP normal, ekg reviewed - atrial paced via pacemaker - there is no indication his presentation is due to infection. A head CT performed yesterday did not show any acute pathology. Keep head of bed at 30 degrees to avoid aspiration. Objective - Vital Signs/Intake and Output Vital Signs (last 24 hours): Temp Pulse Resp BP Pulse Ox 98.1 F 76 19 122/75 95 10/21/18 12:00 10/21/18 12:00 10/21/18 12:00 10/21/18 12:00 10/21/18 06:00 Intake and Output: 10/21/18 10/21/18 06:59 18:59 Intake Total 300 Output Total 2 Balance 298 - Medications Medications: Current Medications Acetaminophen (Tylenol 325mg Tab) 650 mg PO Q6H PRN PRN Reason: Pain, moderate (4-7) Artificial Tears (Refresh Opth Soln) 0.3 ml OU BID [facility] Last Admin: 10/21/18 09:56 Dose: 1 applic Aspirin (Ecotrin) 81 mg PO DAILY [facility] Last Admin: 10/21/18 10:00 Dose: 81 mg Benztropine Mesylate (Cogentin) 1 mg PO BID [facility] Last Admin: 10/21/18 10:00 Dose: 1 mg Clonazepam (Klonopin) 1 mg PO BID [facility]; Protocol Last Admin: 10/21/18 09:59 Dose: 1 mg Divalproex Sodium (Depakote Dr(*Bid*)) 500 mg PO BID [facility]; Protocol Last Admin: 10/21/18 09:55 Dose: 500 mg Docusate Sodium (Colace) 100 mg PO HS [facility] Enoxaparin Sodium (Lovenox) 40 mg SC DAILY [facility]; Protocol Last Admin: 10/21/18 09:55 Dose: 40 mg Furosemide (Lasix) 20 mg PO DAILY [facility] Last Admin: 10/21/18 10:00 Dose: 20 mg Sodium Chloride (Sodium Chloride 0.45%) 1,000 mls @ 60 mls/hr IV .[id number] [facility] Last Admin: 10/21/18 10:01 Dose: 60 mls/hr Levothyroxine Sodium (Synthroid) 75 mcg PO 0600 [facility] Lisinopril (Zestril) 5 mg PO DAILY [facility] Last Admin: 10/21/18 09:59 Dose: 5 mg Metoprolol Succinate (Toprol Xl) 25 mg PO DAILY [facility] Last Admin: 10/21/18 09:59 Dose: 25 mg Multivitamins/Minerals (Therapeutic-M Tab) 1 tab PO 0800 [facility] Linagliptin [ Tradjenta] 5 Mg ( Home Med) 5 mg PO DAILY [facility] Last Admin: 10/21/18 10:01 Dose: Not Given Pantoprazole Sodium (Protonix Inj) 40 mg IVP DAILY [facility] Last Admin: 10/21/18 09:55 Dose: 40 mg Polyethylene Glycol (Miralax) 17 gm PO BID [facility] Potassium Chloride (Klor-Con 10) 10 meq PO DAILY [facility] Last Admin: 10/21/18 09:59 Dose: 10 meq Risperidone (Risperdal Tab) 2 mg PO BID [facility]; Protocol Last Admin: 10/21/18 09:56 Dose: 2 mg - Labs Labs: 10/21/18 09:30 10/21/18 09:30
[2018-10-21 21:00] LABS: URINE BILIRUBIN SMALL (NEGATIVE); URINE BLOOD NEGATIVE (NEGATIVE); URINE GLUCOSE (UA) NEGATIVE (NEGATIVE); URINE LEUKOCYTE ESTERASE TRACE Leu/uL (NEGATIVE); URINE PROTEIN NEGATIVE mg/dL (<30 mg/dL)
[2018-10-21 21:06] LABS: URINE APPEARANCE CLEAR (CLEAR); URINE COLOR YELLOW (YELLOW)
--- NOTE | 2018-10-22 03:35 | HP ---
DATE OF EXAM: 10/21/2018 The patient was seen in the emergency room on bed 17. REASON FOR ADMISSION: The patient has recurrent falls. HISTORY OF PRESENT ILLNESS: The patient is a 78-year-old male, he lives at home. He takes lot of psych medications, history of diabetes, hypertension, hypothyroidism, brought in because he fell. He did have some pain in his rib area right side and back pain. He denied any fever or chills. No sweating. No chest pain. No other complaint. The patient did have a history of recurrent falls 2 to 3 times before as per family. There is no nausea, vomiting or diarrhea. No focal weakness. PAST MEDICAL HISTORY: As I mentioned, he has a history of psychiatric disorder. It is quite unclear whether he is getting antipsychotic and mood stabilizing drugs including Depakote and Klonopin. History of diabetes, hypertension, and hypothyroidism. ALLERGIES: PENICILLIN, VALSARTAN, IV DYE, AND SULFA DRUGS. MEDICATIONS AT HOME: He takes Cogentin 1 mg b.i.d., Colace 100 b.i.d., Depakote 500 mg b.i.d., aspirin 81 mg, Klonopin; he takes 1 mg b.i.d. He takes also potassium 10 mEq once a day, Lasix 20 mg p.o. daily, Tradjenta 5 mg daily, MiraLax b.i.d., Protonix 40, Refresh ophthalmic solution, Risperdal 2 mg b.i.d., also Synthroid 75 mcg once a day, multivitamins, Toprol-XL 25 once a day, Tylenol p.r.n., and Zestril 5 mg p.o. daily. FAMILY HISTORY: Noncontributory. REVIEW OF SYSTEMS: As in the present illness. The patient has dementia. He has problem walking. He does have dysuria and sometimes losing urine control. He has no other symptoms except above in the present illness. PHYSICAL EXAMINATION GENERAL: The patient is lying in the bed. He is alert, awake and he is talkative, in no distress. He wants to go home, but he seems weak. VITAL SIGNS: Please be advised that notes where I saw the patient in the ER was on 10/20/2018. Temperature is 97.7, heart rate 60, blood pressure 155/92, respiration 18, saturating 97% on room air. HEAD AND NECK: Normal. No JVD. No thyromegaly. CARDIOPULMONARY: First sound and second sound normal. There is systolic murmur. LUNGS: Clear bilateral. ABDOMEN: Generalized tenderness in epigastric and lower abdomen. EXTREMITIES: Mild edema. NEUROLOGIC: The patient moves all extremities. LABORATORY STUDIES: He had white count 7.8, hemoglobin 14, hematocrit 41.4, and platelets 134. Chemistry; sodium 142, potassium 4.3, chloride 106, bicarb 30, BUN 32, creatinine 0.8. Liver function test is normal. Troponin is negative. The patient also had a CT scan done for his head. No active bleed. Lumbar spine shows degenerative joint disease. A CT was done, which shows negative for any pneumonias. CT abdomen and pelvis is ordered and to be followed. IMPRESSION: 1. This is a 78-year-old male came in because of recurrent fall, etiology of the fall unclear, whether imbalance . We will get the Cardiology consultation to see the patient. We are going to get also a Neurology consultation plus Gastroenterology consultation. So, recurrent falls, possible syncope. We will get cardiac enzymes. Cardiology and Neurology consults. 2. Abdominal pain. We will get a Gastroenterology consult; CT abdomen and pelvis, no contrast. 3. Hypertension, diabetes and hypothyroidism, resume medications. PLAN: Continue current therapy. Continue GI and DVT prophylaxis. We will follow up. We will give the patient clear liquid diet and we will review of the CT scan result of the abdomen and follow up with the other bridal sales consultant in the morning. Please consider this note was done on 10/20/2018. We will get labs in the morning. Michael Bergman MD
[2018-10-22] MEDS: Levothyroxine 75 MCG TAB PO SCH (05:06)
[2018-10-22 06:57] LABS: HDL CHOLESTEROL 22 mg/dL (29-60)
[2018-10-22 07:09] LABS: LDL CHOLESTEROL 92 mg/dL (0-129)
[2018-10-22] MEDS: Sodium Chloride 0.45% 1,000 ML IV SCH ×3 (08:28→22:00)
[2018-10-22] MEDS: Multivitamin With Minerals Tab PO SCH (08:28)
--- NOTE | 2018-10-22 08:32 | CT ---
Date of service: 10/21/2018 PROCEDURE: CT HEAD WITHOUT CONTRAST. HISTORY: lethargic/solmnolent COMPARISON: None available. TECHNIQUE: Axial computed tomography images were obtained through the head/brain without intravenous contrast. Radiation dose: Total exam DLP = 846.71 mGy-cm. This CT exam was performed using one or more of the following dose reduction techniques: Automated exposure control, adjustment of the mA and/or kV according to patient size, and/or use of iterative reconstruction technique. FINDINGS: HEMORRHAGE: No intracranial hemorrhage. BRAIN: No mass effect or edema. Mild diffuse age-appropriate cerebral atrophy. Minimal periventricular white matter lucency consistent with chronic microvascular ischemic change. No evidence of acute infarct. VENTRICLES: Unremarkable. No hydrocephalus. CALVARIUM: Unremarkable. PARANASAL SINUSES: Unremarkable as visualized. No significant inflammatory changes. MASTOID AIR CELLS: Unremarkable as visualized. No inflammatory changes. OTHER FINDINGS: None. IMPRESSION: No intracranial mass, hemorrhage or evidence of acute infarct. The preliminary findings for this examination were reported by [facility] at 7:43 p.m. on 10/21/2017. There is concurrence of this report with the preliminary findings.
--- NOTE | 2018-10-22 09:32 | CP.PCM.PN ---
<Roshni Chambers - Last Filed: 10/22/18 11:54> Subjective - Date & Time of Evaluation Date of Evaluation: 10/22/18 Time of Evaluation: 09:29 - Subjective Subjective: Roshni Chambers, PGY-1, GI Progress Note for Dr. Garduno Patient seen and evaluated at bedside. Patient had no acute overnight events. Patient is AAOx1 at bedside and has no complaint today. Nurse reports he had 2 normal bowel movements last night and has not had any episodes of nausea or vomiting. Objective - Vital Signs/Intake and Output Vital Signs (last 24 hours): Temp Pulse Resp BP Pulse Ox 97.4 F L 62 19 129/72 96 10/22/18 06:00 10/22/18 06:00 10/22/18 06:00 10/22/18 06:00 10/22/18 06:00 Intake and Output: 10/22/18 10/22/18 06:59 18:59 Intake Total 1567 Output Total 300 Balance 1267 - Medications Medications: Current Medications Acetaminophen (Tylenol 325mg Tab) 650 mg PO Q6H PRN PRN Reason: Pain, moderate (4-7) Artificial Tears (Refresh Opth Soln) 0.3 ml OU BID [facility] Last Admin: 10/21/18 17:41 Dose: 1 applic Aspirin (Ecotrin) 81 mg PO DAILY [facility] Last Admin: 10/21/18 10:00 Dose: 81 mg Benztropine Mesylate (Cogentin) 1 mg PO BID [facility] Last Admin: 10/21/18 17:38 Dose: Not Given Clonazepam (Klonopin) 0.5 mg PO TID [facility]; Protocol Divalproex Sodium (Depakote Dr(*Bid*)) 500 mg PO BID [facility]; Protocol Last Admin: 10/21/18 17:39 Dose: Not Given Docusate Sodium (Colace) 100 mg PO HS [facility] Last Admin: 10/21/18 21:47 Dose: 100 mg Enoxaparin Sodium (Lovenox) 40 mg SC DAILY [facility]; Protocol Last Admin: 10/21/18 09:55 Dose: 40 mg Furosemide (Lasix) 20 mg PO DAILY [facility] Last Admin: 10/21/18 10:00 Dose: 20 mg Sodium Chloride (Sodium Chloride 0.45%) 1,000 mls @ 60 mls/hr IV .[id number] [facility] Last Admin: 10/22/18 08:28 Dose: Not Given Levothyroxine Sodium (Synthroid) 75 mcg PO 0600 [facility] Last Admin: 10/22/18 05:06 Dose: 75 mcg Lisinopril (Zestril) 5 mg PO DAILY [facility] Last Admin: 10/21/18 09:59 Dose: 5 mg Metoprolol Succinate (Toprol Xl) 25 mg PO DAILY [facility] Last Admin: 10/21/18 09:59 Dose: 25 mg Multivitamins/Minerals (Therapeutic-M Tab) 1 tab PO 0800 [facility] Last Admin: 10/22/18 08:28 Dose: 1 tab Linagliptin [ Tradjenta] 5 Mg ( Home Med) 5 mg PO DAILY [facility] Last Admin: 10/21/18 10:01 Dose: Not Given Pantoprazole Sodium (Protonix Inj) 40 mg IVP DAILY [facility] Last Admin: 10/21/18 09:55 Dose: 40 mg Polyethylene Glycol (Miralax) 17 gm PO BID [facility] Last Admin: 10/21/18 17:39 Dose: Not Given Potassium Chloride (Klor-Con 10) 10 meq PO DAILY [facility] Last Admin: 10/21/18 09:59 Dose: 10 meq Risperidone (Risperdal Tab) 2 mg PO BID [facility]; Protocol Last Admin: 10/21/18 17:39 Dose: Not Given - Labs Labs: 10/21/18 09:30 10/21/18 09:30 - Constitutional Appears: Well, Non-toxic, No Acute Distress - Head Exam Head Exam: ATRAUMATIC, NORMAL INSPECTION, NORMOCEPHALIC - Eye Exam Eye Exam: EOMI, PERRL - ENT Exam ENT Exam: Mucous Membranes Moist - Respiratory Exam Respiratory Exam: Clear to Ausculation Bilateral, NORMAL BREATHING PATTERN - Cardiovascular Exam Cardiovascular Exam: REGULAR RHYTHM, RRR, +S1, +S2 - GI/Abdominal Exam GI & Abdominal Exam: Guarding (voluntary), Soft, Tenderness (diffuse), Normal Bowel Sounds - Extremities Exam Extremities Exam: Full ROM, Normal Inspection. absent: Pedal Edema - Neurological Exam Neurological Exam: Alert, Awake, CN II-XII Intact - Skin Skin Exam: Dry, Intact Assessment and Plan - Assessment and Plan (Free Text) Assessment: 78 year old male with past medical history of DM II, dementia, pacemaker placement presents status post fall and head trauma. GI was consulted for abdominal pain and constipation. Abdominal CT shows evidence of retained stool and cholelithiasis. #Constipation #Fecal impaction #Dementia #Bipolar #Type 2 diabetes #Status post permanent pacemaker Plan: #Constipation #Fecal impaction #Dementia #Bipolar #Type 2 diabetes #Status post permanent pacemaker -Patient is status post 2 bowel movements -Patient will need enema if he continues to be impacted -UA shows likely contaminated sample with trace LE and no nitrate. -No plan for endoscopy at this time. Patient plan discussed with Dr. Garduno. <Ish Garduno V - Last Filed: 10/23/18 00:00> Objective - Vital Signs/Intake and Output Vital Signs (last 24 hours): Temp Pulse Resp BP Pulse Ox 97.9 F 58 L 18 154/75 H 96 10/22/18 17:39 10/22/18 18:00 10/22/18 17:39 10/22/18 17:39 10/22/18 17:39 Intake and Output: 10/22/18 10/23/18 18:59 06:59 Intake Total 1320 641 Balance 1320 641 - Medications Medications: Current Medications Acetaminophen (Tylenol 325mg Tab) 650 mg PO Q6H PRN PRN Reason: Pain, moderate (4-7) Artificial Tears (Refresh Opth Soln) 0.3 ml OU BID [facility] Last Admin: 10/22/18 17:22 Dose: 1 applic Aspirin (Ecotrin) 81 mg PO DAILY [facility] Last Admin: 10/22/18 11:17 Dose: 81 mg Benztropine Mesylate (Cogentin) 1 mg PO BID [facility] Last Admin: 10/22/18 12:12 Dose: Not Given Clonazepam (Klonopin) 0.5 mg PO TID [facility]; Protocol Last Admin: 10/22/18 12:13 Dose: Not Given Divalproex Sodium (Depakote Dr(*Bid*)) 500 mg PO BID [facility]; Protocol Last Admin: 10/22/18 12:12 Dose: Not Given Docusate Sodium (Colace) 100 mg PO HS [facility] Last Admin: 10/22/18 22:01 Dose: 100 mg Enoxaparin Sodium (Lovenox) 40 mg SC DAILY [facility]; Protocol Last Admin: 10/22/18 11:17 Dose: 40 mg Furosemide (Lasix) 20 mg PO DAILY [facility] Last Admin: 10/22/18 11:18 Dose: 20 mg Sodium Chloride (Sodium Chloride 0.45%) 1,000 mls @ 60 mls/hr IV .[id number] [facility] Last Admin: 10/22/18 22:00 Dose: 60 mls/hr Levothyroxine Sodium (Synthroid) 75 mcg PO 0600 [facility] Last Admin: 10/22/18 05:06 Dose: 75 mcg Lisinopril (Zestril) 5 mg PO DAILY [facility] Last Admin: 10/22/18 11:18 Dose: 5 mg Metoprolol Succinate (Toprol Xl) 25 mg PO DAILY [facility] Last Admin: 10/22/18 11:18 Dose: 25 mg Multivitamins/Minerals (Therapeutic-M Tab) 1 tab PO 0800 [facility] Last Admin: 10/22/18 08:28 Dose: 1 tab Linagliptin [ Tradjenta] 5 Mg ( Home Med) 5 mg PO DAILY [facility] Last Admin: 10/22/18 11:19 Dose: Not Given Pantoprazole Sodium (Protonix Ec Tab) 40 mg PO B [facility] Polyethylene Glycol (Miralax) 17 gm PO BID [facility] Last Admin: 10/22/18 17:23 Dose: 17 gm Potassium Chloride (Klor-Con 10) 10 meq PO DAILY [facility] Last Admin: 10/22/18 11:18 Dose: 10 meq Risperidone (Risperdal Tab) 2 mg PO BID [facility]; Protocol Last Admin: 10/22/18 12:13 Dose: Not Given - Labs Labs: 10/21/18 09:30 10/21/18 09:30 Attending/Attestation - Attestation I have personally seen and examined this patient.: Yes I have fully participated in the care of the patient.: Yes I have reviewed all pertinent clinical information, including history, physical exam and plan: Yes Notes (Text): This patient was seen and evaluated here earlier with residents. This is an addendum to the GI progress report dictated earlier by the resident. Patient did have a good bowel movements. We will continue the laxative regimen. patient's was at bedside on clear liquid we will advance the diet to pured diet. No plan for endoscopy procedure now 10/22/18 23:58
[2018-10-22] MEDS: POLYETHYLENE GLYCOL 3350 17 GM/Dose PACKET PO SCH ×2 (11:17→17:23)
[2018-10-22] MEDS: Enoxaparin 40 mg Syringe SC SCH (11:17)
[2018-10-22] MEDS: Metoprolol Succinate 25 mg XL Tab PO SCH (11:18)
[2018-10-22] MEDS: Potassium Chloride 10 mEq ER Tab PO SCH (11:18)
[2018-10-22] MEDS: Linagliptin [Tradjenta] 5 MG (HOME MED) PO SCH (11:19)
[2018-10-22] MEDS: Divalproex 500 mg DR(BID formulation) PO SCH (12:12)
[2018-10-22] MEDS: Lubricant Eye Drops UD OU SCH ×2 (12:42→17:22)
--- NOTE | 2018-10-22 13:48 | CON ---
DATE OF CONSULTATION: 10/22/2018 CARDIOLOGY CONSULTATION HISTORY: The patient is a 78-year-old male with bipolar disease, who presents after a fall while in the longterm. PAST MEDICAL HISTORY: The patient's past medical history includes a history of pacemaker placement for questionable reasons. The patient cannot give a history. He suffers from diabetes mellitus, hypertension as well as bipolar disease. He is unable to give any answers to any history. He denies chest pain, denies shortness of breath. PHYSICAL EXAMINATION: VITAL SIGNS: Blood pressure is 128/73, the heart rate is in the 60s. NECK: Negative JVD. LUNGS without rales. HEART: Reveals S1, S2. EXTREMITIES: Without edema. EKG is paced rhythm. LABORATORY DATA: Hemoglobin is 13.3, glucose 152, troponin are negative x2. IMPRESSION: 1. Status post recurrent falls. 2. Echocardiogram 9 months ago reveals good LV function without LV outflow obstruction. 3. Diabetes mellitus. 4. Hypertension. 5. History of bipolar disease. 6. History of pacemaker placement. PLAN: Given these findings, it is unlikely that the patient's recurrent falls are cardiac related. However, we will do a pacemaker check to rule out any significant arrhythmias, to keep on the monitor and storage bin tender for 24 hours. Davian Robins MD
--- NOTE | 2018-10-22 16:07 | CARD ---
APPROVED REPORT Date of service: 10/22/2018 EKG Measurement Heart [id number] <Conclusion> Dual chamber paced rhythm Abnormal ECG
--- NOTE | 2018-10-22 16:13 | CON ---
DATE: 10/22/2018 NEUROLOGY CONSULT CHIEF COMPLAINT: Frequent falls. HISTORY OF PRESENT ILLNESS: This is 78-year-old man with past medical history of type II diabetes mellitus, cognitive impairment, pacemaker placement, status post fall and head trauma and had abdominal pain and constipation for which GI is on board. He was consulted for frequent falls. The patient has features of diabetic peripheral neuropathy and the patient has bilateral tremors of his hands consistent with essential tremors which we could consider placing the patient on Inderal if needed or reduce the dose of risperidone to reduce the amount of tremors in his hands. His diabetic peripheral neuropathy on Neuro examination. His pacemaker will be interrogated as per Cardiology. PAST MEDICAL HISTORY: As above. ALLERGIES: ALLERGIC TO PENICILLIN, LOSARTAN AND SULFA DRUGS. REVIEW OF SYSTEMS: A 14-point review of systems is negative except as per the HPI. MEDICATIONS: Reviewed by nurse reconciliation sheet. FAMILY HISTORY: Noncontributory. LABORATORY DATA: Today's blood sugar is 152. PHYSICAL EXAMINATION: VITAL SIGNS: Temperature 97.7, pulse rate 62, blood pressure 128/73 and respiratory rate 18. GENERAL: The patient is lying in bed, in no acute distress. HEENT: Atraumatic and normocephalic. PERRLA. Extraocular muscles intact. NECK: Supple. No JVD. No adenopathy noted. LUNGS: Clear to auscultation. No adventitious sounds. HEART: S1 and S2. Normal rate and rhythm. No murmurs, rubs, or gallops. ABDOMEN: Soft, nontender and nondistended. Bowel sounds present. EXTREMITIES: No clubbing. No cyanosis. Peripheral pulses are 2+ felt bilaterally. NEURO: The patient is alert and oriented to person and place not much of month or year. Recall after 5 minutes is 0/3. Poor attention span. Slow thought process. Cranial nerves II through XII are intact. Motor exam; moves all extremities equally. Toes are downgoing bilaterally. Sensory exam; decreased light touch, pinprick up to the calves bilaterally. Decreased vibration of the toes. DTRs are 2+ and 1 at both knees and ankles. Coordination; [id number] is intact. No dysmetria noted. Has bilateral tremors seen on [id number] when hands are stretched. IMPRESSION: Frequent falls, likely secondary to deconditioned diabetic peripheral neuropathy. He also has some essential tremors of both hands which could benefit from Inderal 40 mg p.o. daily if cleared by Cardiology for his underlying bilateral essential tremors and needs Psych to adjust his psychiatric meds to bipolar disease in regards to may be reduce his Risperidone given that he has worsening hand tremors and continue to use Cogentin, clonazepam and Depakote. At this time physical therapy/occupational therapy evaluation, subacute rehab could be considered for his underlying deconditioning and poor gait imbalance. Javier Young MD
--- NOTE | 2018-10-22 17:02 | US ---
PROCEDURE: Bilateral carotid artery duplex ultrasound HISTORY: Carotid stenosis syncope PHYSICIAN(S): Davian Hoover MD. TECHNIQUE: Duplex sonography and color-flow Doppler were used to evaluate the carotid bifurcations and limited segments of the vertebral arteries bilaterally. FINDINGS: There is mild smooth heterogeneous echogenic plaque noted at the carotid bifurcations bilaterally. The peak systolic velocity in the proximal right internal carotid artery is 66 cm/sec. This corresponds to a 20 to 39% proximal right ICA stenosis. Normal systolic velocities are noted in the proximal right external carotid artery. There is antegrade flow in the right vertebral artery. The peak systolic velocity in the proximal left internal carotid artery is 59 cm/sec. This corresponds to a 20 to 39% proximal left ICA stenosis. Normal systolic velocities are noted in the proximal left external carotid artery. There is antegrade flow in the left vertebral artery. IMPRESSION: 1. Bilateral 20-39% proximal ICA stenoses. 2. Antegrade flow in both vertebral arteries.
--- NOTE | 2018-10-23 02:53 | PN ---
DATE: 10/22/2018 SUBJECTIVE: The patient was seen earlier today in 263, bed 1. No fevers. No chills. PHYSICAL EXAMINATION: VITAL SIGNS: Temperature is 97, blood pressure is 150/70, respiratory rate of 18. HEENT: Unremarkable. NECK: Supple. LUNGS: Decreased breath sounds. HEART: Normal S1 and S2. ABDOMEN: Soft, nontender. LABORATORY DATA: Laboratory examination reveals a white count of 10, hemoglobin of 13. Chemistries are noted. The patient's creatinine is reported to be 0.9. Urinalysis is noted, and microbiology are reviewed. Review of orders revealed the patient to be on no antibiotics. ASSESSMENT AND PLAN: A 78-year-old male, seen earlier today with bipolar disorder, dementia, diabetes, hypertension, pacemaker. Came from a [place] [facility] after a fall with a possible hyperthermia, source not clear. Currently off of antibiotics although he has not had any temperature elevations here. Pending mendez culture results. Avel Paulino MD
[2018-10-23] MEDS: Levothyroxine 75 MCG TAB PO SCH (06:17)
[2018-10-23 06:58] VITALS: O2SAT 97
[2018-10-23] MEDS ORDERED: Pantoprazole 40 mg EC Tab PO SCH (07:30)
--- NOTE | 2018-10-23 08:51 | CP.PCM.PN ---
<Roshni Chambers - Last Filed: 10/23/18 11:59> Subjective - Date & Time of Evaluation Date of Evaluation: 10/23/18 Time of Evaluation: 08:48 - Subjective Subjective: Roshni Chambers, PGY-1, GI Progress Note for Dr. Garduno Patient seen and evaluated at bedside. Patient had no acute overnight events. Patient is AAOx1 at bedside and pleasant. He has no complaints at this time. He was reported to have 5 bowel movement in the past 24 hours. Objective - Vital Signs/Intake and Output Vital Signs (last 24 hours): Temp Pulse Resp BP Pulse Ox 98.2 F 58 L 20 133/79 97 10/23/18 06:00 10/23/18 06:00 10/23/18 06:00 10/23/18 06:00 10/23/18 06:00 Intake and Output: 10/23/18 10/23/18 06:59 18:59 Intake Total 1361 Balance 1361 - Medications Medications: Current Medications Acetaminophen (Tylenol 325mg Tab) 650 mg PO Q6H PRN PRN Reason: Pain, moderate (4-7) Artificial Tears (Refresh Opth Soln) 0.3 ml OU BID [facility] Last Admin: 10/22/18 17:22 Dose: 1 applic Aspirin (Ecotrin) 81 mg PO DAILY [facility] Last Admin: 10/22/18 11:17 Dose: 81 mg Benztropine Mesylate (Cogentin) 1 mg PO BID [facility] Last Admin: 10/22/18 12:12 Dose: Not Given Clonazepam (Klonopin) 0.5 mg PO TID [facility]; Protocol Last Admin: 10/22/18 12:13 Dose: Not Given Divalproex Sodium (Depakote Dr(*Bid*)) 500 mg PO BID [facility]; Protocol Last Admin: 10/22/18 12:12 Dose: Not Given Docusate Sodium (Colace) 100 mg PO HS [facility] Last Admin: 10/22/18 22:01 Dose: 100 mg Enoxaparin Sodium (Lovenox) 40 mg SC DAILY [facility]; Protocol Last Admin: 10/22/18 11:17 Dose: 40 mg Furosemide (Lasix) 20 mg PO DAILY [facility] Last Admin: 10/22/18 11:18 Dose: 20 mg Sodium Chloride (Sodium Chloride 0.45%) 1,000 mls @ 60 mls/hr IV .[id number] [facility] Last Admin: 10/22/18 22:00 Dose: 60 mls/hr Levothyroxine Sodium (Synthroid) 75 mcg PO 0600 [facility] Last Admin: 10/23/18 06:17 Dose: 75 mcg Lisinopril (Zestril) 5 mg PO DAILY [facility] Last Admin: 10/22/18 11:18 Dose: 5 mg Metoprolol Succinate (Toprol Xl) 25 mg PO DAILY [facility] Last Admin: 10/22/18 11:18 Dose: 25 mg Multivitamins/Minerals (Therapeutic-M Tab) 1 tab PO 0800 [facility] Last Admin: 10/22/18 08:28 Dose: 1 tab Linagliptin [ Tradjenta] 5 Mg ( Home Med) 5 mg PO DAILY [facility] Last Admin: 10/22/18 11:19 Dose: Not Given Pantoprazole Sodium (Protonix Ec Tab) 40 mg PO B [facility] Polyethylene Glycol (Miralax) 17 gm PO BID [facility] Last Admin: 10/22/18 17:23 Dose: 17 gm Potassium Chloride (Klor-Con 10) 10 meq PO DAILY [facility] Last Admin: 10/22/18 11:18 Dose: 10 meq Risperidone (Risperdal Tab) 2 mg PO BID [facility]; Protocol Last Admin: 10/22/18 12:13 Dose: Not Given - Labs Labs: 10/21/18 09:30 10/21/18 09:30 - Constitutional Appears: Well, Non-toxic, No Acute Distress - Head Exam Head Exam: ATRAUMATIC, NORMAL INSPECTION, NORMOCEPHALIC - Eye Exam Eye Exam: EOMI, PERRL - ENT Exam ENT Exam: Mucous Membranes Moist - Respiratory Exam Respiratory Exam: Clear to Ausculation Bilateral, NORMAL BREATHING PATTERN - Cardiovascular Exam Cardiovascular Exam: REGULAR RHYTHM, RRR, +S1, +S2 - GI/Abdominal Exam GI & Abdominal Exam: Guarding (voluntary), Soft, Tenderness (diffuse), Normal Bowel Sounds - Extremities Exam Extremities Exam: Full ROM, Normal Inspection. absent: Pedal Edema - Neurological Exam Neurological Exam: Alert, Awake, CN II-XII Intact - Skin Skin Exam: Dry, Intact Assessment and Plan - Assessment and Plan (Free Text) Assessment: 78 year old male with past medical history of DM II, dementia, pacemaker placement presents status post fall and head trauma. GI was consulted for abdominal pain and constipation. Abdominal CT shows evidence of retained stool and cholelithiasis. #Constipation #Fecal impaction #Dementia #Bipolar #Type 2 diabetes #Status post permanent pacemaker Plan: -Patient is status post multiple bowel movements -Will reduce laxative regimen to miralax 17 gm daily. -Patient advanced to pureed diet. -No plans for EGD at this time. -UA shows likely contaminated sample with trace LE and no nitrate. -No plan for endoscopy at this time. Patient plan discussed with Dr. Garduno. <Ish Garduno V - Last Filed: 10/24/18 01:05> Objective - Vital Signs/Intake and Output Vital Signs (last 24 hours): Temp Pulse Resp BP Pulse Ox 98.5 F 62 18 149/72 97 10/23/18 18:00 10/23/18 18:00 10/23/18 18:00 10/23/18 18:00 10/23/18 06:00 - Labs Labs: 10/21/18 09:30 10/21/18 09:30 Attending/Attestation - Attestation I have personally seen and examined this patient.: Yes I have fully participated in the care of the patient.: Yes I have reviewed all pertinent clinical information, including history, physical exam and plan: Yes Notes (Text): This addendum to the GI progress report dictated by the resident. Patient is moving his bowels. Tolerating the diet. Patient planned to be transferred back to the nursing. Discussed to the patient's yesterday. Titrate the dose of laxatives 10/24/18 01:04
--- NOTE | 2018-10-23 09:04 | CON ---
DATE: 10/22/2018 CONSULTATION IDENTIFYING INFORMATION: The patient is a 78-year-old white male with a past psychiatric history that includes dementia. He also has a history of diabetes, hypertension, hypothyroidism, and most recently falls (which is the reason for admission). He was complaining of pain in his right rib area and back. HOME MEDICATIONS: His home medications include Cogentin, Depakote, Klonopin, Risperdal, Synthroid. He was most recently on the psychiatric unit from 02/22 to 03/08/2018. At that time, it was noted that he had a history of chronic delusions, paranoia, and disorganized thinking and behavior, but improved on the psychiatric unit at that time. He reportedly has a history of bipolar disorder with psychotic features versus schizoaffective disorder. He has had multiple psychiatric admissions including his stay at hospitals. At that time, he had been living at the [facility]. He was referred back to the rehab facility in an improved state at that time. I had seen this patient in consultation in February 2018. At that time, it was noted that he was . He had come to the emergency room and reported bilateral lower extremity weakness. At that time, he was a resident at the [facility] and [facility] in [place]. At that time, upon exiting a restaurant, with his and brother, he suddenly was unable to ambulate because of extreme lower extremity weakness and then brought to the emergency room where he was noted to be markedly deconditioned with bilateral lower extremity weakness. At that time, it was appreciated that he had a history of bipolar psychosis. It was noted then that I had interacted with this patient previously in 2003, at which time, he was given a diagnosis of bipolar disorder - mixed - severe. In fact, the patient is still living presently at the [facility] in [place] and presumably will return there when he improves. The patient here has been sleepy, but arousable to verbal stimulation. I have discussed this case with Nursing. Given the patient's extreme sedated state, we will hold his medication. His medications includes Cogentin 1 mg b.i.d., Depakote 500 mg b.i.d., Klonopin 0.5 mg t.i.d., Risperdal 2 mg b.i.d., all of which he is receiving at the detention. VITAL SIGNS: Blood pressure presently 128/73, temperature 97.3, pulse 62, respiratory rate 18. Blood glucose 152 at this time. We will continue to monitor with you. Atul Jeffrey MD/ PhD
[2018-10-23] MEDS ORDERED: POLYETHYLENE GLYCOL 3350 17 GM/Dose PACKET PO SCH (10:00)
--- NOTE | 2018-10-23 11:20 | PN ---
DATE: 10/23/2018 CARDIOLOGY FOLLOWUP SUBJECTIVE: The patient is resting comfortably in bed. PHYSICAL EXAMINATION VITAL SIGNS: Blood pressure is 133/79, heart rates in the 50s, paced rhythm. NECK: Negative JVD. LUNGS: Without rales. HEART: S1 and S2. EXTREMITIES: Without edema. LABORATORY DATA: Hemoglobin is 13. Glucose is 102. IMPRESSION 1. Status post recurrent falls. 2. No evidence for syncope. 3. History of diabetes mellitus. 4. Hypertension. 5. History of bipolar disease. 6. History of pacemaker placement. PLAN: Given these findings, the patient so far shows no dysfunction with his pacemaker. The pacemaker interrogation has been ordered. Davian Robins MD
[2018-10-23] MEDS: Multivitamin With Minerals Tab PO SCH (11:44)
[2018-10-23] MEDS: Metoprolol Succinate 25 mg XL Tab PO SCH (11:44)
[2018-10-23] MEDS: Enoxaparin 40 mg Syringe SC SCH (11:45)
[2018-10-23] MEDS: Potassium Chloride 10 mEq ER Tab PO SCH (11:45)
[2018-10-23] MEDS: Linagliptin [Tradjenta] 5 MG (HOME MED) PO SCH (11:48)
[2018-10-23 12:09] VITALS: RESP 18; TEMP 98.5
--- NOTE | 2018-10-23 12:34 | PN ---
DATE: 10/22/2018 SUBJECTIVE: The patient is more alert, more awake, responding appropriately, smiling. The patient otherwise has no physical distress. Seen by neurologist, seen by senior manager, GI consults and multiple consultations seems stable. PHYSICAL EXAMINATION: VITAL SIGNS: Today his temperature is 97.9, heart rate 62, blood pressure 154/75, respirations 18, saturation 96%. HEAD AND NECK: Normal. No JVD. No thyromegaly. CHEST: Clear bilaterally. CARDIAC: First sound and second sounds normal. ABDOMEN: Soft, nontender. EXTREMITIES: No edema. NEUROLOGICAL: Normal. LABORATORY STUDIES: White count 10.3, hemoglobin 13.3, hematocrit 40.6, platelets 226. Chemistry is noted blood sugar 150, sodium 140, potassium 4.2, chloride 106, bicarb 30, BUN 33, creatinine 0.9, blood sugar 140. Liver function test is normal. Troponin was negative. Procalcitonin is 0.05. The patient also had urine culture which was negative. Otherwise stable. ASSESSMENT AND PLAN: 1. Recurrent falls, possible syncope. The patient had carotid ultrasound negative, troponin negative. Seen by Cardiology, good left ventricular functions. Also seen by Neurology, who noted some tremors, otherwise the patient seems stable. 2. Diabetes. Continue current diabetic medications. Continue . 3. Schizoaffective disorder. Continue Depakote, Klonopin, Cogentin. Followup with his Psychiatry. Risperdal will be given 2 mg twice a day, could be a factor of recurrent falls. I did try to reach Psychiatry or get in touch with the . We will followup in that. 4. Hypothyroidism, hypertension. Continue Zestril 5 mg. Continue levothyroxine. Continue gastrointestinal and deep venous thrombosis prophylaxis. The patient will get some physical therapy. Seems his mood is stable, seen by Psychiatry. We will adjust his psych medications. We will discharge and the patient should be discharged home. Go back to his assisted living at [place]. Michael Bergman MD
[2018-10-23] MEDS: Lubricant Eye Drops UD OU SCH ×2 (14:14→18:08)
--- NOTE | 2018-10-23 16:35 | PN ---
DATE: 10/23/2018 SUBJECTIVE: The patient is in bed in no acute distress, nontoxic. PHYSICAL EXAMINATION: VITAL SIGNS: Temperature is 98, blood pressure is 130/70, respiratory rate of 18. HEENT: Unremarkable. NECK: Supple. LUNGS: Decreased breath sounds. HEART: Normal S1, S2. ABDOMEN: Soft, nontender. LABORATORY DATA: Reviewed. White count is 10,000, hemoglobin of 13. Microbiology is reviewed. Review of orders revealed the patient will be off of antibiotics. ASSESSMENT AND PLAN: This is a 78-year-old male who was seen earlier today at 02:53 who has bipolar disorder, dementia, diabetes, hypertension, has a pacemaker, admitted after a fall at the residential, currently off of antibiotics, afebrile with normal white count, no evidence of infection; however, the patient is allergic to PENICILLIN. He also has constipation and CAT scan shows cholelithiasis in addition to dementia, bipolar, diabetes, currently off of antibiotics, afebrile, risk for developing infections. Avel Paulino MD
[2018-10-23 18:26] VITALS: BP 149/72; PULSE 62
--- NOTE | 2018-10-24 08:37 | PN ---
DATE: 10/23/2018 SUBJECTIVE: The patient is a 78-year-old white male with a past psychiatric history that includes delusional thinking, paranoia, thought disorganization, and dementia. He has been a resident of an assisted living facility. Today, the patient appears to be brighter in affect, responds minimally but appropriately. He has a prior history of schizoaffective disorder and has been maintained on Depakote, Klonopin, Cogentin, and Risperdal. He also has a history of hypothyroidism and hypertension. Blood pressure 130/70, respiratory rate 18, temperature 98. Atul Jeffrey MD/ PhD
--- NOTE | 2018-10-25 04:14 | DS ---
HOSPITAL COURSE: The patient came in with fall, evaluation was done, admitted to telemetry floor. No arrhythmia. Seen by Cardiology, Dr. Davian Robins and Psychiatry, Dr. Jeffrey. The patient was also seen GI consult Dr. Garduno because of associated abdominal discomfort on physical exam. The patient also complained of rib pain. He had CT of the chest that was negative for any fractures, there is old fracture. Thoracic lumbar spine negative. CT head was negative. The patient also had a CT abdomen which shows constipation, otherwise negative. The patient was seen by Neurology consult Dr. Javier Young. Carotid ultrasound was done which shows bilateral 20% to 39% proximal ICA stenosis which is clinically insignificant. The patient, on day of discharge is more awake and responding and smiling, seems stable, eating and was discharged home to be followed up as outpatient by psychiatric evaluation with adjustment of his medications. DISCHARGE PHYSICAL EXAMINATION: VITAL SIGNS: Temperature 98.5, heart rate 62, blood pressure 149/72, and respirations 18. HEAD AND NECK: Normal. No JVD. No thyromegaly. CHEST: Clear bilaterally. CARDIAC: First sound and second sound normal. No murmur, rub, or gallop. ABDOMEN: Soft and nontender. EXTREMITIES: No edema. NEUROLOGIC: Normal. LABORATORY DATA: White count 10.3, hemoglobin 13.3, hematocrit 40.6, and platelets 126. Chemistry; sugar in 150s to 170s. Last chemistry show sodium 140, potassium 4.2, chloride 106, bicarb 30, BUN 33, creatinine 0.9, and blood sugar 140. Liver function test was normal. Troponin was negative. Procalcitonin was negative. Hemoglobin A1c of 5.1. DISCHARGE DIAGNOSES: 1. Recurrent falls, generalized weakness. The patient will need physical therapy, 2. The patient is little bit mind sleepy. Psych medication needs adjustment. We will follow up as outpatient. 3. Diabetes, stable. 4. Hypertension. 5. Hypercholesterolemia. 6. Hypothyroidism. 7. Schizoaffective disorder. PLAN: Discharge the patient home. Continue same meds. Followup with psychiatrist. Continue physical therapy. Michael Bergman MD [facility] # [id number]
== END 2018-10-23 18:36 | disposition home or self-care (01) | DRG 312 ==
LOC: ED 14:06 → ERH 18:57 → 2RNO 21:28
PROVIDERS: ADMIT Internal Medicine; ATTEND Internal Medicine
PROC: 4B02XSZ Measurement of Cardiac Pacemaker, External Approach (ICD-10-PCS; principal; 2018-10-22)
DX: R55 Syncope and collapse (principal); E03.9 Hypothyroidism, unspecified; E11.42 Type 2 diabetes mellitus with diabetic polyneuropathy; E78.5 Hyperlipidemia, unspecified; F03.90 Unspecified dementia, unspecified severity, without behavioral disturbance, psychotic disturbance, mood disturbance, and anxiety; F25.9 Schizoaffective disorder, unspecified; F31.9 Bipolar disorder, unspecified; G25.0 Essential tremor; I10 Essential (primary) hypertension; I25.2 Old myocardial infarction; K21.9 Gastro-esophageal reflux disease without esophagitis; K56.41 Fecal impaction; K80.20 Calculus of gallbladder without cholecystitis without obstruction; M43.10 Spondylolisthesis, site unspecified; R29.6 Repeated falls; S09.90XA Unspecified injury of head, initial encounter; W07.XXXA Fall from chair, initial encounter; M54.5 Low back pain; Y92.129 Unspecified place in nursing home as the place of occurrence of the external cause; Z79.890 Hormone replacement therapy; Z79.899 Other long term (current) drug therapy; Z87.891 Personal history of nicotine dependence; Z88.0 Allergy status to penicillin; Z95.0 Presence of cardiac pacemaker; Z88.2 Allergy status to sulfonamides; Z88.8 Allergy status to other drugs, medicaments and biological substances